=== PATIENT | male | born 1950 | race Caucasian/White ===

== ENCOUNTER 2019-07-11 12:36 | Outpatient (CLI) | payer OTHER, SELFPAY ==
--- NOTE | 2019-07-11 12:41 | USCV_ITS ---
Ac Paz Age: 69 Gender: M : 1950 Exam Date: 07/11/2019 13:12 Ordering Phys: Luis Enrique Joseph MD ([email or web address]) Technologist: Mignon Cadet Exam Location: [facility] [place] Indication: HISTORY: Lower extremity pain. PROCEDURES: Bilateral duplex Venous Insufficiency study of the Deep and Superficial systems was carried out according to normal protocol with the patient in supine positon for deep system and dependent position for the superficial system. FINDINGS: There is no evidence of bilateral deep vein thrombosis. No evidence of superficial thrombosis in the bilateral saphenous system. No evidence of reflux was noted in the bilateral deep venous system. No venous reflux noted in the RIGHT greater saphenous vein. Venous reflux is demonstrated in the LEFT greater saphenous vein with a spectral Doppler display of greater than 500 milliseconds at the level of the below knee. Bilateral SSV appear to have thrombus ? chronic, unable to accurately evaluate for reflux. CONCLUSIONS #1. No evidence of DVT in the above-mentioned identifiable veins. #2. No significant reflux in the deep veins #3. Significant venous reflux of greater than 500 ms was noted in the below-knee greater saphenous vein on the left side #4. The venous dimensions, depth from the surface and reflux time are as mentioned above Dr Yasmani Jorge MD FACC (Electronically Signed) Final Date: 11 July 2019 19:38 S
== END 2019-07-11 12:37 | disposition home or self-care (01) ==
PROVIDERS: Family Provider Nurse Practitioner; Visit Provider Internal Medicine Cardiovascular Disease
DX: I83.93 Asymptomatic varicose veins of bilateral lower extremities (principal); I73.9 Peripheral vascular disease, unspecified; M79.662 Pain in left lower leg; M79.661 Pain in right lower leg
CPT/HCPCS: 93970

== ENCOUNTER 2020-03-01 10:31 | Emergency (ER) | payer OTHER, SELFPAY ==
--- NOTE | 2020-03-01 10:36 | XR_ITS ---
WS: [id number] Portable AP upright chest, 03/01/2020 Clinical Data: swelling Comparison: None. Findings: No nodules, masses or effusions are seen. The heart is enlarged. The pulmonary vascularity is not increased. No pneumonia or pneumothorax is seen. The aortic arch and descending aorta are tort uous. The right diaphragm is elevated. Monitor leads on the chest wall. The aortic arch and descendin g aorta show tortuosity. XR/XR chest 1V portable [id number] Impression: 1 cardiomegaly and atherosclerosis. 2. Elevation of the right diaphragm.
[2020-03-01 10:47] VITALS: BP 191/105; PULSE 64; RESP 20; TEMP 36.8; O2SAT 84; BMI 36.3
[2020-03-01 11:02] VITALS: BP 191/105; PULSE 73; RESP 20; O2SAT 94
--- NOTE | 2020-03-01 11:04 | PC.NURSE ---
REPORT RECIEVED FROM [facility].
--- NOTE | 2020-03-01 11:08 | PC.NURSE ---
Report given to LILIAM Rose
[2020-03-01 11:10] LABS: Basophils % 0.4 %; Eosinophils # 0.2 10^3/uL (0.0-0.8); Eosinophils % 3.2 %; Hematocrit 48.1 % (42.0-52.0); Lymphocytes # 1.5 10^3/uL (0.8-4.8); Lymphocytes % 20.9 %; Mean Corpuscular HGB Conc 31.2 g/dL (30.0-36.0); Mean Corpuscular Hemoglobin 30.2 pg (28.0-34.0); Mean Platelet Volume 10.2 fL (7.4-10.4); Monocytes # 0.7 10^3/uL (0.2-0.9); Monocytes % 9.4 %; Neutrophils # 4.74 10^3/uL (1.8-7.7); Neutrophils % 65.7 %; Nucleated Red Blood Cells % 0 %; Platelet Count 185 10^3/cmm (130-400); Red Blood Count 4.96 10^6/uL (4.1-5.3); Red Cell Distribution Width 12.8 % (12.1-15.1); White Blood Count 7.2 10^3/uL (4.0-10.0)
--- NOTE | 2020-03-01 11:13 | W.ED.EXTPRO ---
Documented by User: JERMAN Valencia 03/01/20 11:30 HPI - Extremity Problem General: Chief complaint: Extremity Problem,Nontraumatic Stated complaint: SWELLING IN FEET AND LEGS Time Seen by Provider: 03/01/20 10:47 Source: patient Mode of arrival: ambulatory Limitations: no limitations History of Present Illness: HPI Narrative: Patient is a 69-year-old male who presents to ED today with a complaint of bilateral lower extremity swelling that he has noticed over the past few days. Patient tells me he normally does not have a history of lower extremity swelling however tells me he is on Lasix and HCTZ. He denies a history of CHF. Patient states over the past 2 months he has been wearing 2L O2 continuously. Patient states he was placed on oxygen following a bout of pneumonia and states he has been on it since. He does not complain of orthopnea or PND. He is not having any chest pain or difficulty breathing. He is having some redness to both of his feet that he states is chronic. [facility] He has a history of PVD. MD Complaint: extremity swelling Onset (ago): day(s) Location: left, right and lower extremity Relieving factors: nothing Exacerbating factors: nothing Associated symptoms: Deny chest pain, fever(s) or rash Review of Systems Const: Denies: fever(s), chills, body aches, fatigue or malaise Eyes: Denies: change in vision or blurry vision Card: Reports: swelling of feet/ankles; Denies: chest pain, palpitations, irregular heart rhythm, edema, lightheadedness, syncope, pre-syncope, dyspnea on exertion, orthopnea, leg pain with exertion or acrocyanosis Resp: Denies: dyspnea, productive cough, non-productive cough, pain on inspiration, change in phlegm color, hemoptysis or chest congestion GI: Denies: abdominal pain, nausea, vomiting, heartburn or diarrhea : Denies: difficulty urinating or dysuria Musc: Reports: extremity swelling; Denies: neck pain, back pain, extremity pain, joint pain, joint swelling, joint redness or joint warmth Skin/Breast: Denies: rash Neuro: Denies: headache(s), numbness in extremities, weakness in extremities or sensory changes PFS ED PFSH: Family History (Updated 11/01/19 @ 09:23 by Chasity Winslow LPN) Mother Cancer Breast CA Father CAD (coronary artery disease) Myocardial infarct MD age 58 Diabetes Stroke Hypertension Social History (Updated 11/01/19 @ 09:24 by Chasity Winslow LPN) Smoking and tobacco status: former smoker Physical Exam Const: COMMON NORMALS: no acute distress, patient oriented x3, no limitations and alert NUTRITIONAL APPEARANCE: obese HENMT: COMMON NORMALS: normocephalic and atraumatic HEAD & SCALP: normocephalic and atraumatic Resp: COMMON NORMALS: normal respiratory effort and clear to auscultation bilaterally AUSCULTATION: clear to auscultation bilaterally Cardio: COMMON NORMALS: regular rate and regular rhythm RATE: regular rate RHYTHM: regular rhythm GI: COMMON NORMALS: Normal to inspection, nondistended, normoactive bowel sounds present, Soft to palpation and non-tender PALPATION: Yes Soft to palpation Extremity: GENERAL: Yes normal exam except as noted OTHER: bilateral LE 2+ pitting edema Neuro: COMMON NORMALS: patient oriented x3 SENSORIUM/ORIENTATION: Yes alert Skin: OTHER: erythema to dorsums of bilateral LEs Course Vital Signs: Vital signs: Vital Signs Temperature 98.3 F 03/01/20 10:47 Pulse Rate 70 03/01/20 12:57 Respiratory Rate 20 H 03/01/20 12:57 Blood Pressure 178/109 03/01/20 12:57 Pulse Oximetry 95 03/01/20 12:57 MDM - Extremity (Nontraumatic) Lab Data: Labs: Lab Results 03/01/20 03/01/20 03/01/20 Range/Units 10:55 10:55 10:55 WBC 7.2 (4.0-10.0) 10^3/ uL RBC 4.96 (4.1-5.3) 10^6/u L Hgb 15.0 (11.7-16.6) g/dL Hct 48.1 (42.0-52.0) % MCV 97.0 H (80-94) fL MCH 30.2 (28.0-34.0) pg MCHC 31.2 (30.0-36.0) g/dL RDW 12.8 (12.1-15.1) % Plt Count 185 (130-400) 10^3/c mm MPV 10.2 (7.4-10.4) fL Neut % (Auto) 65.7 % Lymph % (Auto) 20.9 % [place] % (Auto) 9.4 % Eos % (Auto) 3.2 % Baso % (Auto) 0.4 % Neut # (Auto) 4.74 (1.8-7.7) 10^3/u L Lymph # (Auto) 1.5 (0.8-4.8) 10^3/u L [place] # (Auto) 0.7 (0.2-0.9) 10^3/u L Eos # (Auto) 0.2 (0.0-0.8) 10^3/u L Baso # (Auto) 0.0 (0.0-0.1) 10^3/u L Nucleated RBC % (a uto) 0 % Nucleated RBCs # 0.0 /100WBC D-Dimer (0-0.59) ug/mIFE U Sodium 139 (136-145) mmol/L Potassium 4.2 (3.5-5.1) mmol/L Chloride 96 L (98-107) mmol/L Carbon Dioxide 37 H (22-29) mmol/L Anion Gap 10.2 (5-19) BUN 12 (8-23) mg/dL Creatinine 1.1 (0.7-1.2) mg/dL GFR Calculation 66.2 L (90-130) mL/min Glucose 115 (65-115) mg/dL Calculated Osmolal ity 285 (285-295) mOsm/k g Lactic Acid 1.1 (0.5-2.2) mmol/L Calcium 9.6 (8.5-10.5) mg/dL Total Bilirubin 0.6 (0.15-1.2) mg/dL AST 29 (0-40) U/L ALT 62 H (0-41) U/L Alkaline Phosphata se 94 (40-130) IU/L NT-Pro-B Natriuret Pep 368 H (0-125) pg/mL Total Protein 7.6 (6.6-8.7) g/dL Albumin 4.6 (3.5-5.2) g/dL Globulin 3.0 (1.3-4.6) g/dL 03/01/20 Range/Units 10:55 WBC (4.0-10.0) 10^3/ uL RBC (4.1-5.3) 10^6/u L Hgb (11.7-16.6) g/dL Hct (42.0-52.0) % MCV (80-94) fL MCH (28.0-34.0) pg MCHC (30.0-36.0) g/dL RDW (12.1-15.1) % Plt Count (130-400) 10^3/c mm MPV (7.4-10.4) fL Neut % (Auto) % Lymph % (Auto) % [place] % (Auto) % Eos % (Auto) % Baso % (Auto) % Neut # (Auto) (1.8-7.7) 10^3/u L Lymph # (Auto) (0.8-4.8) 10^3/u L [place] # (Auto) (0.2-0.9) 10^3/u L Eos # (Auto) (0.0-0.8) 10^3/u L Baso # (Auto) (0.0-0.1) 10^3/u L Nucleated RBC % (a uto) % Nucleated RBCs # /100WBC D-Dimer 1.05 H (0-0.59) ug/mIFE U Sodium (136-145) mmol/L Potassium (3.5-5.1) mmol/L Chloride (98-107) mmol/L Carbon Dioxide (22-29) mmol/L Anion Gap (5-19) BUN (8-23) mg/dL Creatinine (0.7-1.2) mg/dL GFR Calculation (90-130) mL/min Glucose (65-115) mg/dL Calculated Osmolal ity (285-295) mOsm/k g Lactic Acid (0.5-2.2) mmol/L Calcium (8.5-10.5) mg/dL Total Bilirubin (0.15-1.2) mg/dL AST (0-40) U/L ALT (0-41) U/L Alkaline Phosphata se (40-130) IU/L NT-Pro-B Natriuret Pep (0-125) pg/mL Total Protein (6.6-8.7) g/dL Albumin (3.5-5.2) g/dL Globulin (1.3-4.6) g/dL Imaging Data^: CXR: Radiologist's impression: [address] [place] [address] XRay Report Signed Patient: Ac Paz Unit #: [id number] : 1950 Age/Sex: 69 / M ADM Date: 03/01/20 Loc: ER Room/Bed: Attending Dr: Ordering Provider/Ordering MD: Kaylene Peters Date of Service: 03/01/20 Procedure(s): XR chest 1V portable [id number] Accession Number(s): [id number] Report Number: [id number] WS: [id number] Portable AP upright chest, 03/01/2020 Clinical Data: swelling Comparison: None. Findings: No nodules, masses or effusions are seen. The heart is enlarged. The pulmonary vascularity is not increased. No pneumonia or pneumothorax is seen. The aortic arch and descending aorta are tortuous. The right diaphragm is elevated. Monitor leads on the chest wall. The aortic arch and descending aorta show tortuosity. XR/XR chest 1V portable [id number] Impression: 1 cardiomegaly and atherosclerosis. 2. Elevation of the right diaphragm. Dictated By: Katherine Monteiro MD Signed By: Katherine Monteiro MD Signed Date/Time: 03/01/20 1111 DD/ 1110 Discharge Plan Discharge Patient Disposition: Home Clinical Impression: Pedal edema Condition: Stable Prescriptions: New (DME) compr.stocking,knee,long,x-lrg Misc See Rx Instructions .ROUTE .MEDSUPPLY Qty: 2 RF: 0 Continued metoprolol tartrate 100 mg tablet 50 mg PO BID RF: 0 furosemide 40 mg tablet 40 mg PO DAILY RF: 0 dorzolamide-timolol 22.3-6.8 mg/mL drops 1 drop ophthalmic (eye) BID RF: 0 triamcinolone acetonide 0.1 % Cream 1 applic TOPICAL BID RF: 0 prednisolone acetate 1 % Drops,Suspension 1 drp OPHTHALMIC (EYE) DAILY RF: 0 hydrochlorothiazide 25 mg Tablet 25 mg PO BEDTIME RF: 0 ketoconazole 1 % Shampoo 1 applic TOPICAL EVERY OTHER DAY RF: 0 valsartan 160 mg Tablet 160 mg PO BID RF: 0 Discharge Orders: Discharge Order (Routine); Ordered 03/01/20 Ordered By: Ernesto Zurita Referrals: Acacia Welch HARPSICHORD MAKER [Family Provider] - 4-7 days Discharge Diet: Low Salt Discharge Activity: Increase activity as tolerated Patient Instructions: Leg Edema (ED) Activity Restrictions/Additional Instructions: Return for any new or worsening symptoms. Follow-up with your primary care provider within 1 week. Follow-up with the certified veterinary technician and vascular surgeon as soon as he can. Obtain compression stockings as that will help as a temporary measure while you are waiting on surgery. Sign Out Sign Out Data: Patient Sign Out occurred on 03/01/20 at 11:38. Patient's care was discussed, and care was transferred from to Ernesto Zurita MD, [facility] [place] Coding Level of Care Code ED Discovery Manager for Chg Fwd Exam Detailed Documented by User: Ernesto Zurita MD, [facility] [place] 03/01/20 13:56 HPI - Extremity Problem General: Chief complaint: Extremity Problem,Nontraumatic Stated complaint: SWELLING IN FEET AND LEGS Time Seen by Provider: 03/01/20 10:47 PFS ED PFSH: Family History (Updated 11/01/19 @ 09:23 by Chasity Winslow LPN) Mother Cancer Breast CA Father CAD (coronary artery disease) Myocardial infarct MD age 58 Diabetes Stroke Hypertension Social History (Updated 11/01/19 @ 09:24 by Chasity Winslow LPN) Smoking and tobacco status: former smoker Course ED course: To provide care from the midlevel. Essentially he is a 69-year-old male who came in with progressive leg swelling. He was hypoxic on arrival, however he has been on 2 L of oxygen recently and came in without his oxygen. He is on Lasix and hydrochlorothiazide but he says is not working. He has no prior history of CHF or COPD. Waiting on his lab work including his d-dimer. If d-dimer is elevated he will obtain a chest CTA. Reevaluation(s): Reevaluation #1: Discussed his lab and imaging findings with him. Especially negative for acute findings. D-dimer mildly elevated but a CTA of his lungs was negative for PE or other acute findings. proBNP is mildly elevated. On further discussion he says his left leg has been swollen for many years on the right leg has been swollen for few weeks. He is on Lasix and hydrochlorothiazide but it appears it is no working. 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 He has been unable to arrange for the surgery due to scheduling issues. I advised that he then get compression socks while he is waiting for the surgery. At this time no need to order anything new other than the compression socks. He voiced understanding and is in agreement with the plan. He thinks he will go to [place] [facility] the [place] to try to get the surgery done faster. Time: 13:42 Vital Signs: Vital signs: Vital Signs Temperature 98.3 F 03/01/20 10:47 Pulse Rate 70 03/01/20 12:57 Respiratory Rate 20 H 03/01/20 12:57 Blood Pressure 178/109 03/01/20 12:57 Pulse Oximetry 95 03/01/20 12:57 MDM - Extremity (Nontraumatic) MDM Narrative: Medical decision making narrative: 69-year-old male who presents to the emergency room with progressive leg swelling. Evaluation in the emergency department was unremarkable for acute illness. 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 He has had swelling in his left leg for years and swelling in the right leg for weeks to months. He is on Lasix. He is advised to increase the dose of his Lasix for a few days to see if that helps. He is also to obtain compression stockings to help reduce the swelling while he is awaiting surgery. Medical Records: Attestation: I reviewed the patient's medical records. Lab Data: Attestation: I reviewed the patient's lab results. Labs: Lab Results 03/01/20 03/01/20 03/01/20 Range/Units 10:55 10:55 10:55 WBC 7.2 (4.0-10.0) 10^3/ uL RBC 4.96 (4.1-5.3) 10^6/u L Hgb 15.0 (11.7-16.6) g/dL Hct 48.1 (42.0-52.0) % MCV 97.0 H (80-94) fL MCH 30.2 (28.0-34.0) pg MCHC 31.2 (30.0-36.0) g/dL RDW 12.8 (12.1-15.1) % Plt Count 185 (130-400) 10^3/c mm MPV 10.2 (7.4-10.4) fL Neut % (Auto) 65.7 % Lymph % (Auto) 20.9 % [place] % (Auto) 9.4 % Eos % (Auto) 3.2 % Baso % (Auto) 0.4 % Neut # (Auto) 4.74 (1.8-7.7) 10^3/u L Lymph # (Auto) 1.5 (0.8-4.8) 10^3/u L [place] # (Auto) 0.7 (0.2-0.9) 10^3/u L Eos # (Auto) 0.2 (0.0-0.8) 10^3/u L Baso # (Auto) 0.0 (0.0-0.1) 10^3/u L Nucleated RBC % (a uto) 0 % Nucleated RBCs # 0.0 /100WBC D-Dimer (0-0.59) ug/mIFE U Sodium 139 (136-145) mmol/L Potassium 4.2 (3.5-5.1) mmol/L Chloride 96 L (98-107) mmol/L Carbon Dioxide 37 H (22-29) mmol/L Anion Gap 10.2 (5-19) BUN 12 (8-23) mg/dL Creatinine 1.1 (0.7-1.2) mg/dL GFR Calculation 66.2 L (90-130) mL/min Glucose 115 (65-115) mg/dL Calculated Osmolal ity 285 (285-295) mOsm/k g Lactic Acid 1.1 (0.5-2.2) mmol/L Calcium 9.6 (8.5-10.5) mg/dL Total Bilirubin 0.6 (0.15-1.2) mg/dL AST 29 (0-40) U/L ALT 62 H (0-41) U/L Alkaline Phosphata se 94 (40-130) IU/L NT-Pro-B Natriuret Pep 368 H (0-125) pg/mL Total Protein 7.6 (6.6-8.7) g/dL Albumin 4.6 (3.5-5.2) g/dL Globulin 3.0 (1.3-4.6) g/dL 03/01/20 Range/Units 10:55 WBC (4.0-10.0) 10^3/ uL RBC (4.1-5.3) 10^6/u L Hgb (11.7-16.6) g/dL Hct (42.0-52.0) % MCV (80-94) fL MCH (28.0-34.0) pg MCHC (30.0-36.0) g/dL RDW (12.1-15.1) % Plt Count (130-400) 10^3/c mm MPV (7.4-10.4) fL Neut % (Auto) % Lymph % (Auto) % [place] % (Auto) % Eos % (Auto) % Baso % (Auto) % Neut # (Auto) (1.8-7.7) 10^3/u L Lymph # (Auto) (0.8-4.8) 10^3/u L [place] # (Auto) (0.2-0.9) 10^3/u L Eos # (Auto) (0.0-0.8) 10^3/u L Baso # (Auto) (0.0-0.1) 10^3/u L Nucleated RBC % (a uto) % Nucleated RBCs # /100WBC D-Dimer 1.05 H (0-0.59) ug/mIFE U Sodium (136-145) mmol/L Potassium (3.5-5.1) mmol/L Chloride (98-107) mmol/L Carbon Dioxide (22-29) mmol/L Anion Gap (5-19) BUN (8-23) mg/dL Creatinine (0.7-1.2) mg/dL GFR Calculation (90-130) mL/min Glucose (65-115) mg/dL Calculated Osmolal ity (285-295) mOsm/k g Lactic Acid (0.5-2.2) mmol/L Calcium (8.5-10.5) mg/dL Total Bilirubin (0.15-1.2) mg/dL AST (0-40) U/L ALT (0-41) U/L Alkaline Phosphata se (40-130) IU/L NT-Pro-B Natriuret Pep (0-125) pg/mL Total Protein (6.6-8.7) g/dL Albumin (3.5-5.2) g/dL Globulin (1.3-4.6) g/dL Imaging Data^: CTA Chest: Radiologist's impression: [place] [address] CT Scan Report Signed Patient: Hattie Paz #: [id number] : [id number] Age/Sex: 69 / MADM Date: 03/01/20 Loc: ERRoom/Bed: Attending Dr: Ordering Provider/Ordering MD: Ernesto Zurita MD, [facility] [place] Date of Service: 03/01/20 Procedure(s): CT angio chest PE protcl [id number] Accession Number(s): [id number] Report Number: [id number] WS: [id number] CT CHEST ANGIOGRAPHY WITH REFORMATS HISTORY: SOB, hypoxia TECHNIQUE: Contiguous axial images are obtained through the chest during arterial injection of intravenous contrast. Images are reconstructed to evaluate the pulmonary arteries. MIP imaging also reviewed. All CT scans at [facility] use at least one of these dose optimization techniques: automated exposure control; mA and/or kV adjustment per patient size (includes targeted exams where dose is matched to clinical indication); or iterative reconstruction. CONTRAST: Omnipaque 350; 95 mL IV. DLP: 623.66 mGy.cm COMPARISON: 10/12/2018 Good opacification of the pulmonary arteries. No filling defects or pulmonary embolism. Mild atherosclerosis aorta. Heart size is normal. No pericardial or pleural effusion. Mild elevation of the RIGHT hemidiaphragm with RIGHT basilar atelectasis. Benign granuloma RIGHT lower lobe. No pneumonia or nodule. No mediastinal or hilar adenopathy. Hepatic steatosis and hepatomegaly. Prior cholecystectomy. Mild increase in the thoracic kyphosis. Degenerative spondylitic changes in the thoracic spine. CT/CT angio chest PE protcl [id number] IMPRESSION: 1. No pulmonary embolism. 2. Mild elevation RIGHT hemidiaphragm with subsegmental RIGHT lower lobe atelectasis. 3. Mild atherosclerosis aorta. 4. Hepatomegaly and hepatic steatosis. Dictated By:Oralia Bocanegra DO Signed By:Oralia Bocanegra DOSigned Date/Time:03/01/20 1303 DD/ 1257 Discharge Plan Discharge Patient Disposition: Home Clinical Impression: Pedal edema Condition: Stable Prescriptions: New (DME) compr.stocking,knee,long,x-lrg Misc See Rx Instructions .ROUTE .MEDSUPPLY Qty: 2 RF: 0 Continued metoprolol tartrate 100 mg tablet 50 mg PO BID RF: 0 furosemide 40 mg tablet 40 mg PO DAILY RF: 0 dorzolamide-timolol 22.3-6.8 mg/mL drops 1 drop ophthalmic (eye) BID RF: 0 triamcinolone acetonide 0.1 % Cream 1 applic TOPICAL BID RF: 0 prednisolone acetate 1 % Drops,Suspension 1 drp OPHTHALMIC (EYE) DAILY RF: 0 hydrochlorothiazide 25 mg Tablet 25 mg PO BEDTIME RF: 0 ketoconazole 1 % Shampoo 1 applic TOPICAL EVERY OTHER DAY RF: 0 valsartan 160 mg Tablet 160 mg PO BID RF: 0 Discharge Orders: Discharge Order (Routine); Ordered 03/01/20 Ordered By: Ernesto Zurita Referrals: Acacia Welch FNP [Family Provider] - 4-7 days Discharge Diet: Low Salt Discharge Activity: Increase activity as tolerated Patient Instructions: Leg Edema (ED) Activity Restrictions/Additional Instructions: Return for any new or worsening symptoms. Follow-up with your primary care provider within 1 week. Follow-up with the certified veterinary technician and vascular surgeon as soon as he can. Obtain compression stockings as that will help as a temporary measure while you are waiting on surgery. Sign Out Sign Out Data: Patient Sign Out occurred on 03/01/20 at 11:38. Patient's care was discussed, and care was transferred from to Ernesto Zurita MD, [facility]. Coding Level of Care Code ED Discovery Manager for Chg Fwd Exam Detailed
[2020-03-01 11:29] LABS: Lactic Sepsis W/Reflex 1.1 mmol/L (0.5-2.2)
[2020-03-01 11:34] LABS: D Dimer 1.05 ug/mIFEU (0-0.59)
[2020-03-01 11:39] LABS: Alanine Aminotransferase 62 U/L (0-41); Albumin Level 4.6 g/dL (3.5-5.2); Alkaline Phosphatase 94 IU/L (40-130); Anion Gap 10.2 (5-19); Aspartate Amino Transferase 29 U/L (0-40); Blood Urea Nitrogen 12 mg/dL (8-23); Calcium 9.6 mg/dL (8.5-10.5); Carbon Dioxide 37 mmol/L (22-29); Chloride 96 mmol/L (98-107); Glomerular Filtration Rate 66.2 mL/min (90-130); Glucose 115 mg/dL (65-115); NT Pro B Type Natriuretic Pept 368 pg/mL (0-125); Osmolality Calculated 285 mOsm/kg (285-295); Potassium 4.2 mmol/L (3.5-5.1); Sodium 139 mmol/L (136-145); Total Bilirubin 0.6 mg/dL (0.15-1.2); Total Protein 7.6 g/dL (6.6-8.7)
--- NOTE | 2020-03-01 11:43 | CT_ITS ---
WS: [id number] CT CHEST ANGIOGRAPHY WITH REFORMATS HISTORY: SOB, hypoxia TECHNIQUE: Contiguous axial images are obtained through the chest during arterial injection of intrav enous contrast. Images are reconstructed to evaluate the pulmonary arteries. MIP imaging also reviewe d. All CT scans at [facility] use at least one of these dose optimization techniques: aut omated exposure control; mA and/or kV adjustment per patient size (includes targeted exams where dose is matched to clinical indication); or iterative reconstruction. CONTRAST: Omnipaque 350; 95 mL IV. DLP: 623.66 mGy.cm COMPARISON: 10/12/2018 Good opacification of the pulmonary arteries. No filling defects or pulmonary embolism. Mild atherosc lerosis aorta. Heart size is normal. No pericardial or pleural effusion. Mild elevation of the RIGHT hemidiaphragm with RIGHT basilar atelectasis. Benign granuloma RIGHT lower lobe. No pneumonia or nodu le. No mediastinal or hilar adenopathy. Hepatic steatosis and hepatomegaly. Prior cholecystectomy. Mild increase in the thoracic kyphosis. Degenerative spondylitic changes in the thoracic spine. CT/CT angio chest PE protcl [id number] IMPRESSION: 1. No pulmonary embolism. 2. Mild elevation RIGHT hemidiaphragm with subsegmental RIGHT lower lobe atele ctasis. 3. Mild atherosclerosis aorta. 4. Hepatomegaly and hepatic steatosis.
[2020-03-01] MEDS: iohexol 350 mg/mL 100 mL Btl IV (12:25)
[2020-03-01 12:57] VITALS: BP 178/109; PULSE 70; RESP 20; O2SAT 95
[2020-03-01 14:05] VITALS: BP 178/98; PULSE 71; RESP 16; O2SAT 95
== END 2020-03-01 14:17 | disposition home or self-care (01) ==
PROVIDERS: Physician Assistant; Emergency Provider Family Medicine; Family Provider Nurse Practitioner
DX: R60.0 Localized edema (principal); Z87.891 Personal history of nicotine dependence; I70.0 Atherosclerosis of aorta
CPT/HCPCS: 12345; 71045; 71275; 80053; 83605; 83880; 85025; 85378; 99283; Q9967

== ENCOUNTER 2021-02-11 09:40 | Outpatient (CLI) | payer OTHER, SELFPAY ==
--- NOTE | 2021-02-11 10:47 | USCV_ITS ---
Ac Paz Age: 70 Gender: M : 1950 Exam Date: 02/11/2021 10:50 Ordering Phys: Boom Kowalski Technologist: Dolly Moran Exam Location: [facility] [place] Indication: CHF BP: 130 / 88 HR: 88 Rhythm: Sinus Technical Quality: Technically difficult study MEASUREMENTS (Male / Female) Normal Values 2D ECHO LV Diastolic Diameter PLAX 4.0 cm 4.2 - 5.9 / 3.9 - 5.3 cm LV Systolic Diameter PLAX 2.2 cm LV Chamber Size 2.7 cm IVS Diastolic Thickness 1.4 cm 0.6 - 1.0 / 0.6 - 0.9 cm IVS Systolic Thickness 1.3 cm LVPW Diastolic Thickness 1.5 cm 0.6 - 1.0 / 0.6 - 0.9 cm LVPW Systolic Thickness 3.1 cm RV Chamber Size 2.2 cm LVOT Diameter 2.1 cm LV Ejection Fraction 2D Teich 64.9 % LV Ejection Fraction MOD 2C 64.1 % LV Ejection Fraction 2C AL 63.8 % LA Diameter 4.0 cm LA Width 3.9 cm LA Height 5.0 cm RA Width 2.3 cm RA Height 4.1 cm Aorta at Sinotubular Diameter 3.4 cm M-MODE LV Diastolic Diameter MM 3.3 cm 4.2 - 5.9 / 3.9 - 5.3 cm LV Systolic Diameter MM 2.0 cm LV Ejection Fraction MM Teich 71.1 % IVS Diastolic Thickness MM 1.9 cm 0.6 - 1.0 / 0.6 - 0.9 cm IVS Systolic Thickness MM 2.2 cm LVPW Diastolic Thickness MM 1.8 cm 0.6 - 1.0 / 0.6 - 0.9 cm LVPW Systolic Thickness MM 2.2 cm Aortic Annulus Diameter 4.0 cm LA Ao Ratio MM 1.2 MV E Point Septal Separation 1.1 cm DOPPLER AV Peak Velocity 143.0 cm/s LVOT Peak Velocity 149.0 cm/s AV Area Cont Eq vti 3.1 cm squared AV Area Cont Eq pk 3.5 cm squared MV Area PHT 10.0 cm squared Mitral E to A Ratio 0.9 MV E' Velocity 40.0 cm/s Mitral E to MV E' Ratio 10.6 Mitral E to LV E' Lateral Ratio 14.0 Mitral E to LV E' Septal Ratio 8.7 TR Peak Velocity 137.4 cm/s TR Peak Gradient 7.6 mmHg TR Mean Velocity 110.8 cm/s TR Mean Gradient 5.2 mmHg TR Velocity Time Integral 36.4 cm TV Peak E Velocity 70.0 cm/s Right Atrial Pressure 3.0 mmHg Pulmonary Artery Systolic Pressu 10.6 mmHg PV Peak Velocity 78.7 cm/s RV Acceleration Time 0.2 s RV Ejection Time 0.4 s RV AcT/ET 0.5 FINDINGS Left Ventricle Normal left ventricular cavity size. Normal left ventricular systolic function. No regional wall motion abnormalities. Left ventricular ejection fraction is estimated at 65 %. Grade I/IV diastolic dysfunction (abnormal relaxation filling pattern), normal to mildly elevated filling pressures. Right Ventricle The right ventricle is normal in size and function. Right Atrium The right atrium is normal in size. Left Atrium The left atrium is normal in size. Mitral Valve Structurally normal mitral valve without significant stenosis or prolapse. There is no mitral regurgitation. Aortic Valve Moderate aortic valve calcification. No aortic valve stenosis. Trace aortic valve regurgitation. Tricuspid Valve Structurally normal tricuspid valve without significant stenosis or regurgitation. Pulmonary artery systolic pressure is normal. Pulmonic Valve Structurally normal pulmonic valve without significant stenosis. There is no pulmonic regurgitation. Pericardium Normal pericardium without effusion. Aorta Normal ascending aorta dimension. CONCLUSIONS 1-Normal left ventricular cavity size. Normal left ventricular systolic function. No regional wall motion abnormalities. Left ventricular ejection fraction is estimated at 65 %. Grade I/IV diastolic dysfunction (abnormal relaxation filling pattern), normal to mildly elevated filling pressures. 2-There is no pericardial effusion. 3-Pulmonary artery systolic pressure is within normal limits. 4-No significant valve abnormalities. 5-Right atrial pressure is around 5 mm of mercury. 6-There are no prior echocardiogram studies to compare. Lius Enrique Joseph MD (Electronically Signed) Final Date: 11 February 2021 17:31 S
== END 2021-02-11 09:41 | disposition home or self-care (01) ==
LOC: US 09:44
PROVIDERS: PCP Nurse Practitioner; Visit Provider Surgery
DX: M79.89 Other specified soft tissue disorders (principal); R60.1 Generalized edema; I50.9 Heart failure, unspecified
CPT/HCPCS: 93306

== ENCOUNTER 2021-02-15 06:15 | Emergency (ER) | payer OTHER, SELFPAY ==
[2021-02-15 06:36] VITALS: BP 150/85; PULSE 88; RESP 18; TEMP 36.7; O2SAT 92; BMI 38.0
[2021-02-15 06:54] VITALS: BP 158/91; PULSE 94; RESP 16; O2SAT 94
--- NOTE | 2021-02-15 07:05 | XRR_ITS ---
PROCEDURE INFORMATION: Exam: XR Chest Exam date and time: 02/15/2021 7:05 AM Age: 70 years old Clinical indication: Cough; Additional info: Cough, aches/chills TECHNIQUE: Imaging protocol: XR of the chest. Views: 1 view. COMPARISON: CR XR chest 1V portable [id number] 03/01/2020 11:21 AM FINDINGS: Lungs: Low lung volumes. Elevation of the right hemidiaphragm with adjacent atelectasis is again seen. Pneumonia should be excluded clinically. Pleural spaces: Unremarkable. No pleural effusion. No pneumothorax. Heart/Mediastinum: Stable cardiomediastinal silhouette. Bones/joints: Degenerative changes of the spine seen. XR/XR chest 1V portable [id number] IMPRESSION: Right basilar atelectasis versus pneumonia, clinical correlation is recommended.
--- NOTE | 2021-02-15 07:06 | ED_ITS ---
HPI - COVID General: Chief Complaint: General Medical Stated Complaint: COUGH, CHILLS Time Seen by Provider: 02/15/21 06:41 Source: patient Mode of arrival: ambulatory Limitations: no limitations Triage information: Has fever, cough or shortness of breath . No known COVID + exposure last 14 days History of Present Illness: HPI Narrative: Patient is a 70-year-old male who presents to ED today with a complaint of chills and body aches as well as a nonproductive cough. He states he normally has a mild cough secondary to COPD but states this cough is different and nonproductive. He states he woke up this morning with body and joint pain. He has had chills and subjective fevers. He is unvaccinated for COVID. Patient denies other URI symptoms. No loss of taste or smell. Denies abdominal pain, nausea, vomiting, diarrhea. No known sick contacts. PMH significant for COPD and HTN. Patient chronically wears 2-2.5L O2 for his COPD. He has not had to increase this. He does not report feeling short of breath currently. MD complaint: has COVID symptoms Prior covid testing: no COVID 19 common symptoms: positive fever(s) (subjective ), chills, cough, non- productive cough, dyspnea (chronic-not worsening ) and body aches; negative headache(s), throat pain, nasal congestion, nausea, vomiting or diarrhea COVID 19 other sytmptoms: negative chest pain Onset (ago): day(s) (yesterday) Severity: mild Pertinent comorbid conditions: hypertension and COPD/respiratory disease Treatment prior to arrival: none COVID Results: SARS-CoV-2 Antigen (Rapid) Positive (Negative) H 02/15/21 07:33 02/15/21 Review of Systems Const: Reports: fever(s) (subjective ), chills and body aches; Denies: change in appetite or change in weight Eyes: Denies: change in vision, blurry vision or photophobia ENMT: Denies: throat pain, odynophagia, nasal discharge, nasal congestion, post nasal drip or sinus pain Card: Reports: swelling of feet/ankles (chronic) and dyspnea on exertion (chronic-not worsening ); Denies: chest pain, palpitations, irregular heart rhythm, edema, lightheadedness, syncope or pre-syncope Resp: Reports: dyspnea (chronic-not worsening ) and non-productive cough; Denies: pain on inspiration or hemoptysis GI: Denies: abdominal pain, nausea, vomiting or diarrhea Musc: Denies: neck pain or back pain Skin/Breast: Denies: rash Neuro: Denies: headache(s), numbness in extremities, weakness in extremities, sensory changes or dizziness PFSH ED PFSH: Medical History Borderline personality disorder CHF (congestive heart failure) Peripheral Vascular Disease Varicose veins of bilateral lower extremities with other complications Surgical History History of back surgery S/P carpal tunnel release S/P cholecystectomy S/P foot surgery S/P routine circumcision Family History Mother Cancer Breast CA Father CAD (coronary artery disease) Myocardial infarct [place] age 58 Diabetes Stroke Hypertension Social History Smoking and tobacco status: former smoker Physical Exam Const: COMMON NORMALS: no acute distress, patient oriented x3, no limitations and alert NUTRITIONAL APPEARANCE: obese ORIENTATION/CONSCIOUSNESS: Yes awake, Yes oriented to person, Yes oriented to place and Yes oriented to time HENMT: COMMON NORMALS: normocephalic, atraumatic, Normal external nose present, moist oral mucous membranes and oropharynx normal HEAD & SCALP: nor mal to inspection, normocephalic and atraumatic FACE & SINUS: normal facial exam NOSE: Normal external nose present MOUTH: Normal oral and palatal mucosa present TEETH & GINGIVA: Yes poor dentition THROAT: posterior oropharynx normal Eye: GENERAL EYE: appearance normal, both eyes and all related structures Neck/C-Spine: COMMON NORMALS: no lymphadenopathy and no meningeal signs Resp: COMMON NORMALS: normal respiratory effort and clear to auscultation bilaterally AUSCULTATION: clear to auscultation bilaterally Cardio: COMMON NORMALS: regular rate and regular rhythm RATE: regular rate RHYTHM: regular rhythm GI: COMMON NORMALS: Normal to inspection, nondistended, normoactive bowel soun ds present, Soft to palpation, non-tender and no masses PALPATION: Yes Soft to palpation Extremity: COMMON NORMALS: capillary refill normal and no calf tenderness GENERAL: Yes normal exam except as noted and Yes edema (chronic) Neuro: COMMON NORMALS: patient oriented x3 SENSORIUM/ORIENTATION: Yes alert, Yes oriented to person, Yes oriented to place and Yes oriented to time MENINGEAL SIGNS: Yes no meningeal signs Skin: COMMON NORMALS: no rashes or lesions noted GENERAL SKIN EXAM: no rashes or lesions noted Course Vital Signs: Vital signs: Vital Signs Temperature 98.1 F 02/15/21 06:36 Pulse Rate 101 H 02/15/21 07:32 Respiratory Rate 18 02/15/21 07:32 Blood Pressure 151/93 02/15/21 07:32 Pulse Oximetry 93 02/15/21 07:32 MDM - COVID MDM Narrative: Medical decision making narrative: Patient appears in NAD. Vitals are stable. He chronically wears O2 and has not had to increase this. Labs are non-concerning. Influenza negative. His rapid COVID is positive. He is a candidate for MCA infusion at this time and would likely see benefit given the fact that symptoms just started yesterday. [facility] for [facility]. Return to ED precautions given. Lab Data: Labs: Lab Results 02/15/21 02/15/21 02/15/21 Range/Units 07:33 07:33 07:33 WBC 4.9 (4.0-10.0) 10^3/ uL RBC 4.78 (4.1-5.3) 10^6/u L Hgb 14.3 (11.7-16.6) g/dL Hct 45.3 (42.0-52.0) % MCV 94.8 H (80-94) fl MCH 29.9 (28.0-34.0) pg MCHC 31.6 (30.0-36.0) g/dL RDW 13.2 (12.1-15.1) % Plt Count 151 (130-400) 10^3/c mm MPV 10.9 H (7.4-10.4) fL Neut % (Auto) 70.7 % Lymph % (Auto) 9.7 % Bosque % (Auto) 16.9 % Eos % (Auto) 2.1 % Baso % (Auto) 0.2 % Neut # (Auto) 3.44 (1.8-7.7) 10^3/u L Lymph # (Auto) 0.5 L (0.8-4.8) 10^3/u L Bosque # (Auto) 0.8 (0.2-0.9) 10^3/u L Eos # (Auto) 0.1 (0.0-0.8) 10^3/u L Baso # (Auto) 0.0 (0.0-0.1) 10^3/u L Nucleated RBC % (a uto) 0 % Nucleated RBCs # 0.0 /100WBC Sodium 140 (136-145) mmol/L Potassium 4.3 (3.5-5.1) mmol/L Chloride 98 (98-107) mmol/L Carbon Dioxide 35 H (22-29) mmol/L Anion Gap 11.3 (5-19) BUN 16 (8-23) mg/dL Creatinine 1.0 (0.7-1.2) mg/dL GFR Calculation Not Reportable Glucose 104 (65-115) mg/dL Calculated Osmolal ity 291 (285-295) mOsm/k g Calcium 9.7 (8.5-10.5) mg/dL Total Bilirubin 0.5 (0.15-1.2) mg/dL AST 22 (0-40) U/L ALT 37 (0-41) U/L Alkaline Phosphata se 98 (40-130) IU/L Total Protein 7.5 (6.6-8.7) g/dL Albumin 4.3 (3.5-5.2) g/dL Globulin 3.2 (1.3-4.6) g/dL Influenza Type A A g Negative (Negative) Influenza Type B A g Negative (Negative) SARS-CoV-2 Ag (Rap id) (Negative) 02/15/21 Range/Units 07:33 WBC (4.0-10.0) 10^3/ uL RBC (4.1-5.3) 10^6/u L Hgb (11.7-16.6) g/dL Hct (42.0-52.0) % MCV (80-94) fl MCH (28.0-34.0) pg MCHC (30.0-36.0) g/dL RDW (12.1-15.1) % Plt Count (130-400) 10^3/c mm MPV (7.4-10.4) fL Neut % (Auto) % Lymph % (Auto) % Bosque % (Auto) % Eos % (Auto) % Baso % (Auto) % Neut # (Auto) (1.8-7.7) 10^3/u L Lymph # (Auto) (0.8-4.8) 10^3/u L Bosque # (Auto) (0.2-0.9) 10^3/u L Eos # (Auto) (0.0-0.8) 10^3/u L Baso # (Auto) (0.0-0.1) 10^3/u L Nucleated RBC % (a uto) % Nucleated RBCs # /100WBC Sodium (136-145) mmol/L Potassium (3.5-5.1) mmol/L Chloride (98-107) mmol/L Carbon Dioxide (22-29) mmol/L Anion Gap (5-19) BUN (8-23) mg/dL Creatinine (0.7-1.2) mg/dL GFR Calculation Glucose (65-115) mg/dL Calculated Osmolal ity (285-295) mOsm/k g Calcium (8.5-10.5) mg/dL Total Bilirubin (0.15-1.2) mg/dL AST (0-40) U/L ALT (0-41) U/L Alkaline Phosphata se (40-130) IU/L Total Protein (6.6-8.7) g/dL Albumin (3.5-5.2) g/dL Globulin (1.3-4.6) g/dL Influenza Type A A g (Negative) Influenza Type B A g (Negative) SARS-CoV-2 Ag (Rap id) Positive H (Negative) COVID Results: SARS-CoV-2 Antigen (Rapid) Positive (Negative) H 02/15/21 07:33 02/15/21 Monoclonal Antibody - ED Inclusion/Exclusion Criteria age >/= 12 years, weight >/= 40kg /88lbs, symptom onset less than 10 days ago and + direct Sars-Cov-2 test less than 7-10 days ago obesity (BMI >25 or 85%til for age), cardiovascular disease or htn and chronic lung disease not requiring hospitalization and no increase oxygen requirement (if chronically on oxygen) Patient education patient/family/caregiver received/reviewed fact sheet, Emergency Use Authorization/unapproved drug status discussed with patient/family/caregiver, alternatives to this treatment discussed with patient/family/caregiver, risks and benefits of medication reviewed with patient/family/caregiver, patient/family/caregiver given opportunity for questions, which were answered an d patient consents to receiving Monoclonal Antibody Treatment Plan for treatment Meets criteria for Monoclonal Antibody infusion Date of symptom(s) onset: 02/14/21 Where are the positive COVID test results, if positive?: Resulted in [facility] Ordering Monoclonal Antibody infusion for today Discharge Plan Discharge Patient Disposition: Home Clinical Impression: COVID-19 Condition: Stable Prescriptions: No Action (DME) [employer] Care Lotion See Rx Instructions .Route .MEDSUPPLY Qty: 1 RF: 0 metoprolol tartrate 100 mg tablet 50 mg PO BID RF: 0 furosemide 40 mg tablet 40 mg PO DAILY RF: 0 dorzolamide-timolol 22.3-6.8 mg/mL drops 1 drop ophthalmic (eye) BID RF: 0 naproxen 250 mg tablet 250 mg PO BID PRNRF: 0 (DME) compr.stocking,knee,long,x-lrg Misc See Rx Instructions .ROUTE .MEDSUPPLY Qty: 2 RF: 0 (DME) Juzo Wrap 4 piece See Rx Instructions .Route .MEDSUPPLY Qty: 1 RF: 0 triamcinolone acetonide 0.1 % Cream 1 applic TOPICAL BID RF: 0 prednisolone acetate 1 % Drops,Suspension 1 drp OPHTHALMIC (EYE) DAILY RF: 0 hydrochlorothiazide 25 mg Tablet 25 mg PO BEDTIME RF: 0 ketoconazole 1 % Shampoo 1 applic TOPICAL EVERY OTHER DAY RF: 0 (DME) compr.stocking,knee,long,x-lrg Misc See Rx Instructions .ROUTE .MEDSUPPLY Qty: 2 RF: 0 valsartan 160 mg tablet 80 mg PO BID RF: 0 Discharge Orders: Discharge ED (Routine); Ordered 02/15/21 Ordered By: Kaylene Peters Referrals: Acacia Welch, [employer] [Primary Care Provider] - Activity Restrictions/Additional Instructions: As we discussed we are discharging you from the ED and you will go straight to the infusion center for your monoclonal antibody infusion. As we discussed [facility]. You may return to the emergency department for severe shortness of breath, difficulty breathing, fevers, generally feeling worse, or any other concerns you may have. Coding Level of Care Code ED Senior Logistics Manager for Janelle Ojeda Exam Comprehensive
[2021-02-15 07:32] VITALS: BP 151/93; PULSE 101; RESP 18; O2SAT 93
[2021-02-15 07:47] LABS: Basophils % 0.2 %; Eosinophils # 0.1 10^3/uL (0.0-0.8); Eosinophils % 2.1 %; Hematocrit 45.3 % (42.0-52.0); Hemoglobin 14.3 g/dL (11.7-16.6); Lymphocytes # 0.5 10^3/uL (0.8-4.8); Lymphocytes % 9.7 %; Mean Corpuscular HGB Conc 31.6 g/dL (30.0-36.0); Mean Corpuscular Hemoglobin 29.9 pg (28.0-34.0); Mean Corpuscular Volume 94.8 fl (80-94); Mean Platelet Volume 10.9 fL (7.4-10.4); Monocytes # 0.8 10^3/uL (0.2-0.9); Monocytes % 16.9 %; Neutrophils # 3.44 10^3/uL (1.8-7.7); Neutrophils % 70.7 %; Nucleated Red Blood Cells % 0 %; Platelet Count 151 10^3/cmm (130-400); Red Blood Count 4.78 10^6/uL (4.1-5.3); Red Cell Distribution Width 13.2 % (12.1-15.1); White Blood Count 4.9 10^3/uL (4.0-10.0)
[2021-02-15 08:10] LABS: Alanine Aminotransferase 37 U/L (0-41); Albumin Level 4.3 g/dL (3.5-5.2); Alkaline Phosphatase 98 IU/L (40-130); Anion Gap 11.3 (5-19); Aspartate Amino Transferase 22 U/L (0-40); Blood Urea Nitrogen 16 mg/dL (8-23); Calcium 9.7 mg/dL (8.5-10.5); Carbon Dioxide 35 mmol/L (22-29); Chloride 98 mmol/L (98-107); Globulin 3.2 g/dL (1.3-4.6); Glucose 104 mg/dL (65-115); Osmolality Calculated 291 mOsm/kg (285-295); Potassium 4.3 mmol/L (3.5-5.1); Sodium 140 mmol/L (136-145); Total Bilirubin 0.5 mg/dL (0.15-1.2); Total Protein 7.5 g/dL (6.6-8.7)
[2021-02-15 08:12] LABS: Influenza A by IFA Negative (Negative); Influenza B by IFA Negative (Negative); SARS Covid-2 Antigen Positive (Negative)
[2021-02-15 08:27] VITALS: BP 156/88; PULSE 99; RESP 16; O2SAT 93
== END 2021-02-15 08:27 | disposition home or self-care (01) ==
PROVIDERS: Emergency Provider Physician Assistant; PCP Nurse Practitioner
DX: U07.1 COVID-19 (principal); I50.9 Heart failure, unspecified; Z87.891 Personal history of nicotine dependence
CPT/HCPCS: 71045; 80053; 85025; 87426; 87804; 99283

== ENCOUNTER 2021-10-29 20:18 | Emergency (ER) | payer OTHER, SELFPAY ==
[2021-10-29 20:19] VITALS: BP 167/114; PULSE 77; RESP 18; TEMP 36.3; O2SAT 97
--- NOTE | 2021-10-29 20:24 | W.ED.LOWEXIN ---
HPI - Extremity Injury (Lower) General: Chief Complaint: Extremity Injury, Lower Stated Complaint: RIGHT HIP PAIN Time Seen by Provider: 10/29/21 20:23 History of Present Illness: Mr. Pza is a 71-year-old gentleman who presents to the emergency department due to right hip and elbow pain on the left. He reportedly had a fall a number of weeks ago and was not evaluated and since that time is mild left elbow pain that is worsened with range of motion. Additionally he developed nontraumatic right hip pain mostly starting yesterday. He endorses lateral pain with radiation down the leg at times worse with ambulation. He has not noticed any skin lesions or swelling of the extremity. There is no associated weakness. Intensity symptoms is moderate and at times severe. He has tried home medications without significant relief. No change in bowel or bladder habits. No midline back pain. Onset (ago): day(s) Severity: moderate Relieving factors: nothing Exacerbating factors: movement and palpation Review of Systems General: Reports: 10 or more systems reviewed and unremarkable except in HPI and below PFSH ED PFSH: Medical History Borderline personality disorder CHF (congestive heart failure) Peripheral Vascular Disease Varicose veins of bilateral lower extremities with other complications Surgical History History of back surgery S/P carpal tunnel release S/P cholecystectomy S/P foot surgery S/P routine circumcision Family History Mother Cancer Breast CA Father CAD (coronary artery disease) Myocardial infarct [place] age 58 Diabetes Stroke Hypertension Social History Smoking and tobacco status: former smoker Physical Exam Const: COMMON NORMALS: alert GENERAL APPEARANCE: cooperative, well developed and ill appearing (Chronically) HENMT: COMMON NORMALS: normocephalic and atraumatic HEAD & SCALP: normocephalic and atraumatic Eye: COMMON NORMALS: conjunctivae normal CONJUNCTIVA: Yes conjunctivae normal SCLERA: sclerae normal Neck/C-Spine: COMMON NORMALS: supple GENERAL: Yes trachea midline Resp: COMMON NORMALS: normal respiratory effort EFFORT & INSPECTION: Yes able to speak in complete sentences Cardio: COMMON NORMALS: regular rate and regular rhythm RATE: regular rate RHYTHM: regular rhythm GI: COMMON NORMALS: Soft to palpation PALPATION: Yes Soft to palpation and No Tenderness to palpation present (GI) PERCUSSION: normal to percussion Back/Pelvis: OTHER: Right SI region tender to palpation. Extremity: NARRATIVE EXTREMITY EXAM: Right lateral trochanter tender to palpation. Some tenderness with range of motion of leg. No obvious deformity. Distal CMS intact. GENERAL: Yes normal exam except as noted and No edema Neuro: COMMON NORMALS: moves all extremities SENSORIUM/ORIENTATION: Yes alert and No Orientation impaired Psych: COMMON NORMALS: mental status grossly normal and Normal thought process present THOUGHT PROCESS: Normal thought process present Course ED course: - Patient was seen and evaluated by me at bedside - Vital signs obtained - Initial evaluation notable for exam as above - Analgesia given - Imaging notable for no acute finding on elbow or hip x-ray. - Upon serial reexamination after treatment the patient was improved - Based on patient history, evaluation, and testing as interpreted the most likely cause of the patient's condition is somewhat unclear. It seems that the patient has pain that is more consistent with 2 separate processes. He does describe more of a lumbar radicular type pain though he does have palpation over the greater trochanter which is more consistent with a bursitis type picture. - The results of ED evaluation were discussed with the patient including prescriptions and/or symptomatic cares (if applicable) including appropriate and responsible use, followup plan, and return precautions. The patient verbalized understanding and felt safe for discharge. - Patient discharged in satisfactory condition. Note: Click bubbles or prepopulated garcia in note writing are used for assistance with data collection and billing and are inherently more limited than narrative and other text portions of this note. Please use narrative for additional clinical history and defer to narrative/free test for any case of contradictory information. If information appears in only free text or click bubble it should be considered present or absent as reported. Please contact note typewriter assembly and parts inspector for clarifications of clinical information or contradictory information. MDM is a brief summary, contradictory or erroneous seeming information should be clarified and full note should be reviewed. Vital Signs: Vital signs: Vital Signs Temperature 97.4 F L 10/29/21 20:19 Pulse Rate 67 10/29/21 22:38 Respiratory Rate 18 10/29/21 22:38 Blood Pressure 123/83 10/29/21 22:38 Pulse Oximetry 98 10/29/21 22:38 MDM - Extremity Injury (Lower) Medical Decision Making 71-year-old gentleman presenting with atraumatic hip pain and traumatic left elbow pain. X-rays negative. Most consistent with 2 separate processes. Plan to treat for lumbar radiculopathy as well as bursitis type picture. Satisfactory for outpatient management. Medical Records I reviewed the patient's medical records. Lab Data I reviewed the patient's lab results. Radiology Impressions Elbow X-Ray 10/29/21 20:33 IMPRESSION: No acute findings. Hip/Pelvis X-Ray 10/29/21 20:33 IMPRESSION: Negative for acute abnormality. Discharge Plan Discharge Patient Disposition: Home Clinical Impression: Lumbar radicular pain, Hip pain, Elbow pain Condition: Stable Prescriptions: New oxycodone 5 mg tablet 5 mg PO Q6H PRN (Reason: pain) Qty: 6 0RF No Action (DME) Amerigel Care Lotion See Rx Instructions .Route .MEDSUPPLY Qty: 1 0RF Rx Instructions: As directed metoprolol tartrate 100 mg tablet 50 mg PO BID 0RF furosemide 40 mg tablet 40 mg PO DAILY 0RF dorzolamide-timolol 22.3-6.8 mg/mL drops 1 drop ophthalmic (eye) BID 0RF naproxen 250 mg tablet 250 mg PO BID PRN0RF (DME) compr.stocking,knee,long,x-lrg Misc See Rx Instructions .ROUTE .MEDSUPPLY Qty: 2 0RF Rx Instructions: Zip up stockings (DME) Juzo Wrap 4 piece See Rx Instructions .Route .MEDSUPPLY Qty: 1 0RF Rx Instructions: As directed triamcinolone acetonide 0.1 % Cream 1 applic TOPICAL BID 0RF prednisolone acetate 1 % Drops,Suspension 1 drp OPHTHALMIC (EYE) DAILY 0RF Rx Instructions: (left eye) hydrochlorothiazide 25 mg Tablet 25 mg PO BEDTIME 0RF ketoconazole 1 % Shampoo 1 applic TOPICAL EVERY OTHER DAY 0RF (DME) compr.stocking,knee,long,x-lrg Misc See Rx Instructions .ROUTE .MEDSUPPLY Qty: 2 0RF Rx Instructions: As directed valsartan 160 mg tablet 80 mg PO BID 0RF Discharge Orders: Discharge ED (Routine); Ordered 10/29/21 Ordered By: Jay Dougherty Referrals: Acacia Welch FNP [Primary Care Provider] - Discharge Diet: Usual diet Discharge Activity: Increase activity as tolerated Patient Instructions: Lumbar Radiculopathy (ED), Hip Pain (ED), Opioid Safety Activity Restrictions/Additional Instructions: Thank you for visiting the emergency department. You were seen and evaluated for hip pain. The exact cause of your symptoms is unclear though likely multifactorial including lumbar radiculopathy and mild bursitis of the greater trochanter. Will be given prescriptions, you may also use [id number] medications though please do not exceed the daily recommended dosage. Please return to the emergency department for uncontrolled symptoms or anything else that you are concerned about and feel needs emergency department evaluation. Coding Level of Care Code ED Institutional Commodity Analyst for Janelle Ojeda
--- NOTE | 2021-10-29 20:33 | XRR_ITS ---
PROCEDURE INFORMATION: Exam: XR Right Hip Exam date and time: 10/29/2021 8:40 PM Age: 71 years old Clinical indication: Hip pain; Right hip; Additional info: Right hip pain, lateral TECHNIQUE: Imaging protocol: XR Right hip. Views: 1 view hip with pelvis when performed. COMPARISON: [facility] Runoff Leg [id number] 12/16/2017 12:25 PM FINDINGS: Bones/joints: Negative for acute fracture. No aggressive osteolytic lesion. No osteonecrosis. Normal hip joint alignment. Osteophytes of the lateral acetabular margin. Moderate joint space narrowing. Soft tissues: Unremarkable. XR/XR hip RT 2-3V wo/w pel* [id number] IMPRESSION: Negative for acute abnormality.
--- NOTE | 2021-10-29 20:33 | XRR_ITS ---
PROCEDURE INFORMATION: Exam: XR Left Elbow Exam date and time: 10/29/2021 8:40 PM Age: 71 years old Clinical indication: Pain; Elbow; Left; Additional info: Elbow pain post fall TECHNIQUE: Imaging protocol: XR Left elbow. Views: 1 or 2 views. COMPARISON: No relevant prior studies available. FINDINGS: Bones/joints: Normal. Soft tissues: No significant finding. XR/XR elbow LT 2V [id number] IMPRESSION: No acute findings.
[2021-10-29 22:25] VITALS: BP 123/83; PULSE 67; RESP 18; O2SAT 98
[2021-10-29] MEDS: predniSONE 20 mg Tablet 40 MG PO (22:25)
[2021-10-29 22:38] VITALS: BP 123/83; PULSE 67; RESP 18; O2SAT 98
== END 2021-10-29 22:44 | disposition home or self-care (01) ==
PROVIDERS: Emergency Provider Emergency Medicine; PCP Nurse Practitioner
DX: M25.551 Pain in right hip (principal); M54.50 Low back pain, unspecified; M25.522 Pain in left elbow
CPT/HCPCS: 73070; 73502; 99283; J7512

== ENCOUNTER 2021-11-12 14:24 | Emergency (ER) | payer OTHER, SELFPAY ==
[2021-11-12 14:29] VITALS: BP 190/110; PULSE 107; RESP 19; TEMP 36.6; O2SAT 94; BMI 35.2
--- NOTE | 2021-11-12 15:25 | ED_ITS ---
HPI - Extremity Problem General: Chief complaint: Extremity Problem,Nontraumatic Stated complaint: Pain in hip and down right leg Time Seen by Provider: 11/12/21 15:09 Source: patient Mode of arrival: ambulatory Limitations: no limitations History of Present Illness: Patient is a 71-year-old male who presents to ED today with what he states is right-sided sciatica pain. Patient states he has been diagnosed with this through the [facility]. He states he is having pain to the right side of his back with radiation down into his right lower extremity. Patient states he has had this pain for a long time. He states he also suffers from chronic neck pain. He states over the past few weeks the pain in his right back and leg have been worsening. He does describe it as a nervelike burning sensation. He states he has a difficult time getting comfortable in any position. Patient states at one point he was being followed by [facility] pain management however he states he tried hemp oil from a friend and this caused him to test positive for THC therefore was apparently let go from pain management. He states the IA has placed a new referral to [place] pain management but this appointment isn't for a few more weeks. He states the IA won't do anything for pain . Patient denies any saddle anesthesia. He is not having any issues with urine or bowel incontinence/retention. He is ambulatory with the help of his cane. He has not noticed any color/temperature changes to his lower extremities. He does have chronic peripheral arterial disease and lymphedema. Of note triage did mention a significant amount of weight loss over the past few months-when questioned on this he states this is intentional and he has been dieting and trying to eat better. Complaint: extremity pain Onset (ago): week(s) Pain Consistency: constant Location: right and lower extremity Severity scale (1-10): >10 Quality: burning and constant Relieving factors: nothing Exacerbating factors: nothing Associated symptoms: Deny chest pain, fever(s) or rash Review of Systems Const: Denies: fever(s), chills, body aches, fatigue or malaise Card: Denies: chest pain Resp: Denies: dyspnea GI: Denies: abdominal pain : Denies: flank pain, dysuria, hematuria or genital pain Musc: Reports: back pain and extremity pain; Denies: neck pain, extremity swelling, joint pain, joint swelling, joint redness, joint warmth, joint stiffness, muscle weakness or decrease in muscle mass Skin/Breast: Denies: rash Neuro: Denies: headache(s), numbness in extremities, weakness in extremities, sensory changes, lack of coordination or dizziness PFSH ED PFSH: Medical History Borderline personality disorder CHF (congestive heart failure) Peripheral Vascular Disease Varicose veins of bilateral lower extremities with other complications Surgical History History of back surgery S/P carpal tunnel release S/P cholecystectomy S/P foot surgery S/P routine circumcision Family History Mother Cancer Breast CA Father CAD (coronary artery disease) Myocardial infarct [place] age 58 Diabetes Stroke Hypertension Social History Smoking and tobacco status: former smoker Physical Exam Const: COMMON NORMALS: no acute distress, patient oriented x3, no limitations and alert GENERAL APPEARANCE: cooperative NUTRITIONAL APPEARANCE: overweight ORIENTATION/CONSCIOUSNESS: Yes awake, Yes oriented to person, Yes oriented to place and Yes oriented to time HENMT: COMMON NORMALS: normocephalic and atraumatic HEAD & SCALP: normal to inspection, normocephalic and atraumatic Resp: COMMON NORMALS: normal respiratory effort and clear to auscultation bilaterally AUSCULTATION: clear to auscultation bilaterally Cardio: COMMON NORMALS: regular rate and regular rhythm RATE: regular rate RHYTHM: regular rhythm GI: COMMON NORMALS: Normal to inspection, nondistended, normoactive bowel sounds present, Soft to palpation, non-tender and no masses PALPATION: Yes Soft to palpation Back/Pelvis: THORACIC SPINE/UPPER BACK: Yes normal to inspection, Yes thoracic ROM normal, No thoracic spinal tenderness, No paraspinal muscle tenderness and No paraspinal muscle spasm LUMBAR SPINE/LOWER BACK: Yes ROM limited, Yes pain with ROM, No lumbar spinal tenderness, Yes paraspinal muscle tenderness Lumbar paraspinal muscle tenderness: right, No paraspinal muscle spasm and No mass present PELVIS: Yes sciatic notch tenderness on the right SACROILIAC JOINTS: Yes SI joint(s) abnormal SI joint details: tender to palpation (right) SACRUM: no tenderness COCCYX: no tenderness Extremity: COMMON NORMALS: full ROM and no calf tenderness NARRATIVE EXTREMITY EXAM: patient has significant skin changes related to chronic PAD; bilateral feet are warm to touch and equal color/temp with brisk cap refill; he does have some equal bilateral edema that he states is at baseline; chronic onychodystrophy GENERAL: Yes normal exam except as noted Neuro: HEATHER COMA SCALE: document GCS findings Heather coma scale eye opening: Spontaneous Heather coma scale verbal response: Orientated Thornton coma scale motor response: Obey commands Heather coma scale total score: 15 COMMON NORMALS: patient oriented x3, moves all extremities, no focal motor deficits and no sensory deficits noted SENSORIUM/ORIENTATION: Yes alert, Yes oriented to person, Yes oriented to place and Yes oriented to time MOTOR EXAM: 5/5 motor strength present throughout Course Vital Signs: Vital signs: Vital Signs Temperature 97.9 F 11/12/21 14:29 Pulse Rate 78 11/12/21 16:31 Respiratory Rate 20 H 11/12/21 16:31 Blood Pressure 180/108 11/12/21 16:31 Pulse Oximetry 95 11/12/21 16:31 MDM - Extremity (Nontraumatic) Medical Decision Making History and physical exam support the diagnosis of acute on chronic right-sided sciatica. Of note he was noted to be very hypertensive in triage. Patient admittedly has not taken his blood pressure medications today. Mood seems to be labile as he often will cry in frustration and then become agitated that nobody seems to be willing/able to treat his pain. He is not SI/HI. We spoke about medications like lyrica/gabapentin but he states he has been on these previously and didn't like the side effects. States he has been on steroids/muscle relaxers and didn't feel like these controlled his pain. He states he was getting percocet from pain management. I told him from the ED we often don't prescribe controlled pain medications for chronic conditions. I don't doubt he is in legitimate discomfort and he is rarely seen in the ED therefore we had a long discussion about trying steroids/muscle relaxers and I would write for a very small amount of hydrocodone that he is to use sparingly and that no further prescriptions will be written for this from the ED. I strongly [facility] and continue to contact pain management and maybe they can call him with a last minute cancellation. Discharge Plan Discharge Patient Disposition: Home Clinical Impression: Lumbar radiculopathy, right Condition: Stable Prescriptions: New hydrocodone-acetaminophen 5-325 mg tablet 1 tab PO Q6H PRN (Reason: pain) Qty: 12 0RF methocarbamol 750 mg tablet 1,500 mg PO Q8H Qty: 30 0RF Medrol (Alexandru) 4 mg tablets,dose pack See Rx Instructions .ROUTE .COMPLEX Qty: 21 0RF Rx Instructions: orally per package directions Discontinued oxycodone 5 mg tablet 5 mg PO Q6H PRN (Reason: pain) Qty: 6 0RF No Action (DME) [employer] Care Lotion See Rx Instructions .Route .MEDSUPPLY Qty: 1 0RF Rx Instructions: As directed metoprolol tartrate 100 mg tablet 50 mg PO BID 0RF furosemide 40 mg tablet 40 mg PO DAILY 0RF dorzolamide-timolol 22.3-6.8 mg/mL drops 1 drop ophthalmic (eye) BID 0RF naproxen 250 mg tablet 250 mg PO BID PRN0RF (DME) compr.stocking,knee,long,x-lrg Misc See Rx Instructions .ROUTE .MEDSUPPLY Qty: 2 0RF Rx Instructions: Zip up stockings (DME) Juzo Wrap 4 piece See Rx Instructions .Route .MEDSUPPLY Qty: 1 0RF Rx Instructions: As directed triamcinolone acetonide 0.1 % Cream 1 applic TOPICAL BID 0RF prednisolone acetate 1 % Drops,Suspension 1 drp OPHTHALMIC (EYE) DAILY 0RF Rx Instructions: (left eye) hydrochlorothiazide 25 mg Tablet 25 mg PO BEDTIME 0RF ketoconazole 1 % Shampoo 1 applic TOPICAL EVERY OTHER DAY 0RF (DME) compr.stocking,knee,long,x-lrg Misc See Rx Instructions .ROUTE .MEDSUPPLY Qty: 2 0RF Rx Instructions: As directed valsartan 160 mg tablet 80 mg PO BID 0RF Discharge Orders: Discharge ED (Routine); Ordered 11/12/21 Ordered By: Kaylene Peters Referrals: Acacia Welch FNP [Primary Care Provider] - Patient Instructions: Opioid Safety Coding Level of Care Code ED Sports Equipment Supervisor for Chg Rusty
[2021-11-12 16:05] VITALS: RESP 20
[2021-11-12] MEDS: morphine 4 mg/mL SDV 1 mL IM (16:05)
[2021-11-12] MEDS: dexamethasone 10 mg/mL INJ 6 MG IM (16:06)
[2021-11-12] MEDS: orphenadrine 30 mg/mL Inj 2 mL 60 MG IM (16:06)
[2021-11-12 16:31] VITALS: BP 180/108; PULSE 78; RESP 20; O2SAT 95
== END 2021-11-12 16:35 | disposition home or self-care (01) ==
PROVIDERS: Emergency Provider Physician Assistant; PCP Nurse Practitioner
DX: M54.16 Radiculopathy, lumbar region (principal)
CPT/HCPCS: 96372; 99283; J1100; J2270; J2360

== ENCOUNTER 2022-03-11 11:33 | Outpatient (CLI) | payer OTHER, SELFPAY ==
--- NOTE | 2022-03-11 11:46 | MR_ITS ---
WS: [id number] MRI LUMBAR SPINE WITH CONTRAST TECHNIQUE: Sagittal T1, T2 and STIR imaging. Axial T1 and T2 imaging. Post gadolinium imaging was obt ained. CLINICAL INFORMATION: LUMBAR POST LAMINECTOMY SYNDROME COMPARISON: None. FINDINGS: Mild lumbar curve. No acute compression. Moderate to severe central canal stenosis L2-L3 due to disc bulging with facet arthropathy and ligamentum flavum hypertrophy. L1-L2: Mild annular bulging. Moderate facet arthropathy. Impingement subarticular recess bilaterally. Mild bilateral foraminal narrowing. Mild central canal stenosis. L2-L3: Mild disc bulging with osteophytic ridging. Impingement subarticular recess bilaterally. Moder ate to severe central canal stenosis. Evidence of prior remote laminectomy at this level. Mild to mod erate bilateral foraminal narrowing. L3-L4: RIGHT subarticular disc protrusion impinges the traversing RIGHT L4 nerve root in the subartic ular recess. Mild central canal stenosis. Moderate facet arthropathy. Moderate RIGHT and mild LEFT fo raminal narrowing. L4-L5: Mild disc bulging with mild central canal stenosis. Impingement on the RIGHT greater than LEFT subarticular recess and traversing RIGHT L5 nerve root. Evidence of remote hemilaminectomies at this level. Moderate RIGHT foraminal narrowing. Mild LEFT foraminal narrowing. L5-S1: Mild disc bulging with osteophytic ridging. Disc desiccation. Osteophytic ridging slightly imp inges the traversing LEFT greater than RIGHT S1 nerve roots. Moderate facet arthropathy. Foramen are patent. Small bilateral renal cysts. Slightly aneurysmal infrarenal abdominal aorta measuring 2.2 cm in AP di mension MR/MR lumbar spine wo/w con [id number] IMPRESSION: 1. Moderate to severe central canal stenosis L2-L3 due to disc bulging with os teophytic ridging in combination with facet arthropathy and ligamentum flavum h ypertrophy. Impingement on the traversing L3 nerve roots bilaterally. 2. Mild central canal stenosis L3-L4 with impingement traversing RIGHT L4 nerv e root in the subarticular recess. 3. Mild central canal stenosis L4-L5 impinges the traversing L5 nerve roots. M ild central canal stenosis. 4. Disc osteophyte complex L5-S1 impinges the traversing LEFT S1 nerve root. 5. Pnoi-bq-qecsuwhd's foraminal narrowing worse at RIGHT L3-L4 and RIGHT L4-L5 with impingement on the exiting L3 and L4 nerve roots respectively. 6. Mild to moderate bilateral L1-L2 and L2-L3 bony foraminal narrowing.
[2022-03-11] MEDS: gadobenate dimeglumine 20 mL vial IV (12:56)
== END 2022-03-11 11:34 | disposition home or self-care (01) ==
PROVIDERS: PCP Nurse Practitioner; Visit Provider General Practice
DX: M96.1 Postlaminectomy syndrome, not elsewhere classified (principal)
CPT/HCPCS: 72158

== ENCOUNTER → 2022-03-23 13:45 | Outpatient (BNVA) | payer OTHER, SELFPAY | PROVIDERS: PCP Nurse Practitioner; Visit Provider Internal Medicine Cardiovascular Disease | DX: I73.9 Peripheral vascular disease, unspecified (principal); I50.30 Unspecified diastolic (congestive) heart failure; I89.0 Lymphedema, not elsewhere classified; I83.93 Asymptomatic varicose veins of bilateral lower extremities; Z87.891 Personal history of nicotine dependence | CPT/HCPCS: 93005; 99214 ==

== ENCOUNTER → 2022-04-20 13:20 | Outpatient (BNVA) | payer OTHER, SELFPAY | PROVIDERS: PCP Nurse Practitioner; Visit Provider Nurse Practitioner Family | DX: I73.9 Peripheral vascular disease, unspecified (principal) | CPT/HCPCS: 36415; 80048; 83880; 99213; 99214 ==

== ENCOUNTER 2022-05-14 09:28 | Outpatient (CLI) | payer OTHER, SELFPAY ==
--- NOTE | 2022-05-14 09:30 | USCV_ITS ---
Ac Paz Age: 72 Gender: M : 1950 Exam Date: 05/14/2022 09:52 Ordering Phys: Brooklyn Torres Technologist: ROBERT Exam Location: [facility] [place]: HISTORY: PROCEDURES: FINDINGS: The veins were found to be easily compressible with spontaneous blood flow. Non pulsatile flow pattern. Significant venous reflux were noted in the greater saphenous vein segments bilaterally No significant venous reflux were noted in the deep veins CONCLUSIONS 1. No evidence of DVT in the above-mentioned identifiable veins. 2. On the right side significant venous reflux of greater than 500 ms were noted distal to the saphenofemoral junction, proximal and below- knee segments of the greater saphenous veins. The venous segment distal to the saphenofemoral junction was 0.56 in diameter and was at a depth of 1.2 cm from the surface. The proximal and the below-knee segments were 0.32 and 0.3 cm respectively in diameter and were less than 1 cm deep from the surface. 3. On the left side significant venous reflux of greater than 500 ms were noted distal to the saphenofemoral junction, proximal and below- knee segments of the greater saphenous vein. These venous segments were measuring 0.4, 0.25 and 0.21 cm respectively in diameter. The greater saphenous vein distal to the saphenofemoral junction and the proximal segments were greater than 1 cm deep from the surface. The venous segment at the below-knee level was less than 1 cm from the surface. Dr Yasmani Jorge MD [facility] (Electronically Signed) Final Date: 19 May 2022 19:03 S
[2022-05-14] MEDS: iohexol 350 mg/mL 500 mL Btl (per mL) IV (10:26)
--- NOTE | 2022-05-14 11:15 | CT_ITS ---
WS: [id number] CTA ABDOMINAL AORTA WITH RUNOFF TECHNIQUE: Contrast enhanced CTA of the abdominal aorta with bilateral lower extremity runoff. Multip lanar reformatted images were obtained. MIP reformats were also reviewed. CLINICAL INFORMATION: cool extremities, skin color changes, hx of PVD COMPARISON: None. DLP: 1070.[address] scans at [facility] use at least one of these dose optimization techniques: automated e xposure control; mA and/or kV adjustment per patient size (includes targeted exams where dose is matc hed to clinical indication); or iterative reconstruction. FINDINGS: Mild aortic calcification. Small infrarenal abdominal aortic aneurysm measuring 2.5 x 2.6 c m AP by transverse. Progressed since 2018. Celiac and SMA are patent. Proximal renal arteries are pat ent with mild calcification. CATHERINE is patent. Proximal common iliac arteries are patent with calcification and atheromatous disease. RIGHT: Common iliac artery is patent. Internal iliac artery is patent. Normal external iliac artery. Common femoral artery is patent. Superficial femoral and deep femoral arteries are patent. Mild steno sis in the distal SFA at the adductor hiatus. Popliteal artery is patent to the trifurcation. Dominan t two-vessel runoff to the ankle. Somewhat diminutive posterior tibial artery. LEFT: Normal common iliac artery. Calcification internal iliac artery which remains patent. External iliac artery is patent. Common femoral artery and superficial femoral arteries are patent. Deep femor al artery is patent. Popliteal artery is patent to the trifurcation. Dense calcification tibioperonea l trunk. Dominant two-vessel runoff to the ankle. Somewhat poor flow in the posterior tibial artery. Lung bases are well aerated. Normal liver. Normal spleen. Small esophageal hiatal hernia. Fatty atrop hy of the pancreas. Adrenal glands are normal. Normal renal parenchymal enhancement. No hydronephrosi s. Prostate calcification. Prostate enlargement. Recommend correlation PSA. Sigmoid diverticulosis. Lumb ar curve. Spondylitic changes lumbar spine. CT/CT angio abd aorta runof [id number] IMPRESSION: Overall peripheral vascular disease slightly progressed since 2018 1. No flow-limiting stenosis in the RIGHT lower extremity. Dominant two-vessel runoff to the ankle. Mild stenosis involving the distal superficial femoral ar osbaldo at the adductor hiatus which remains patent. 2. No flow-limiting stenosis in the LEFT lower extremity. Dominant two-vessel runoff to the ankle. 3. Small infrarenal abdominal aortic aneurysm measuring 2.5 x 2.6 cm AP by tra nsverse appears new/progressed compared to 2018. 4. Celiac and SMA are patent. CATHERINE is patent. 5. Nonvascular findings described above.
== END 2022-05-14 09:29 | disposition home or self-care (01) ==
LOC: RAD 09:30
PROVIDERS: PCP Nurse Practitioner; Visit Provider Nurse Practitioner Family
DX: I83.893 Varicose veins of bilateral lower extremities with other complications (principal); I73.9 Peripheral vascular disease, unspecified; I71.40 Abdominal aortic aneurysm, without rupture, unspecified
CPT/HCPCS: 75635; 93970

== ENCOUNTER → 2022-05-20 09:34 | Outpatient (BNVA) | payer OTHER, SELFPAY | PROVIDERS: PCP Nurse Practitioner; Visit Provider Nurse Practitioner Family | DX: I50.30 Unspecified diastolic (congestive) heart failure (principal); I83.893 Varicose veins of bilateral lower extremities with other complications; Z87.891 Personal history of nicotine dependence | CPT/HCPCS: 99214 ==

== ENCOUNTER 2022-07-10 18:35 | Emergency (ER) | payer OTHER, SELFPAY ==
[2022-07-10 18:46] VITALS: BP 142/91; PULSE 115; RESP 18; TEMP 36.7; O2SAT 94
--- NOTE | 2022-07-10 18:52 | W.ED.EXTPRO ---
HPI - Extremity Problem General: Chief complaint: Extremity Injury, Lower Stated complaint: left foot pain Time Seen by Provider: 07/10/22 18:52 History of Present Illness: 72-year-old male patient comes in today with complaints of redness and a rash to the left lateral ankle. Patient denies any injury. Patient does have peripheral vascular disease and has recurrent episodes of cellulitis and swelling. Patient appears nontoxic. Patient reports no fever. Patient reports no increase in pain. Review of Systems Musc: Reports: extremity pain and extremity swelling Skin/Breast: Reports: erythema PFSH ED PFSH: Medical History Borderline personality disorder CHF (congestive heart failure) Peripheral Vascular Disease Varicose veins of bilateral lower extremities with other complications Surgical History History of back surgery S/P carpal tunnel release S/P cholecystectomy S/P foot surgery S/P routine circumcision Family History Mother Cancer Breast CA Father CAD (coronary artery disease) Myocardial infarct [place] age 58 Diabetes Stroke Hypertension Social History Smoking and tobacco status: former smoker Physical Exam Const: COMMON NORMALS: alert HENMT: COMMON NORMALS: normocephalic HEAD & SCALP: normocephalic Neck/C-Spine: COMMON NORMALS: full ROM Resp: COMMON NORMALS: normal respiratory effort Cardio: COMMON NORMALS: regular rate RATE: regular rate Extremity: LEFT LOWER EXTREMITY: Yes foot & digits (Circular patch rash with central clearing) Neuro: SENSORIUM/ORIENTATION: Yes alert Skin: RASHES: no rashes (Left lateral ankle) Course Vital Signs: Vital signs: Vital Signs Temperature 98.1 F 07/10/22 18:46 Pulse Rate 115 H 07/10/22 18:46 Respiratory Rate 18 07/10/22 18:46 Blood Pressure 142/91 07/10/22 18:46 Pulse Oximetry 94 07/10/22 18:46 Oxygen Delivery Me thod 07/10/22 18:46 MDM - Extremity (Nontraumatic) Medical Decision Making Patient comes in today for complaints of swelling and redness to the lower extremity on the left side. Patient is also concerned of a rash. On exam we know a circular patterned rash to the lateral left ankle. Patient also has some increased erythema to the dorsal aspect of bilateral feet. Patient has decreased pulses to the lower extremities. Patient is known to have peripheral vascular disease. Differential diagnosis includes not limited to stasis dermatitis, tinea pedis, cellulitis. Suspect patient probably has a bout of tinea pedis we will start on terbinafine. We will cover for secondary cellulitis. Patient requested 8 rounds of steroid for his support dermatitis. Prescriptions were written patient was covered for antibiotic dose tonight and drain. Patient reported understanding of care plan need for follow-up or return to ER. Discharge Plan Discharge Patient Disposition: Home Clinical Impression: Cellulitis of foot, PVD (peripheral vascular disease) Tinea pedis Qualifiers: Laterality: unspecified laterality Qualified Code(s): B35.3 - Tinea pedis Condition: Stable Prescriptions: New terbinafine HCl 1 % cream 1 applic topical BID Qty: 30 0RF Rx Instructions: rash on foot cephalexin 500 mg capsule 500 mg PO Q8H 7 Days Qty: 21 0RF dexamethasone 4 mg tablet 4 mg PO DAILY Qty: 7 0RF No Action (DME) [employer] Care Lotion See Rx Instructions .Route .MEDSUPPLY Qty: 1 0RF Rx Instructions: As directed dorzolamide-timolol 22.3-6.8 mg/mL drops 1 drop ophthalmic (eye) BID naproxen 250 mg tablet 250 mg PO BID PRN methocarbamol 750 mg tablet 1,500 mg PO Q8H PRN medical marijuana PO furosemide 40 mg tablet 120 mg PO DIRECTED Qty: 270 3RF Rx Instructions: 80mg (2 tabs) in AM and 40mg (1 tab) in PM metoprolol tartrate 25 mg tablet 25 mg PO BID Qty: 180 3RF potassium gluconate 600 mg (99 mg) tablet 600 mg PO DAILY cefuroxime axetil 500 mg tablet 500 mg PO BID 10 Days Qty: 20 0RF (DME) compr.stocking,knee,long,x-lrg Misc See Rx Instructions .ROUTE .MEDSUPPLY Qty: 2 0RF Rx Instructions: Zip up stockings ketoconazole 1 % Shampoo 1 applic TOPICAL EVERY OTHER DAY Discharge Orders: Discharge ED (Routine); Ordered 07/10/22 Ordered By: Yves Larsen Referrals: Acacia Welch, CABLE WORKER HELPER [Primary Care Provider] - Discharge Diet: Usual diet Discharge Activity: Increase activity as tolerated Patient Instructions: Cellulitis (ED) Activity Restrictions/Additional Instructions: Home and rest. Elevate feet is much as possible. Use terbinafine cream twice daily to the rash for the next 14 days. Have medication filled as soon as possible and initiate treatment as directed. Follow-up with primary care for further instruction. Return to ED for new concerns or worsening symptoms. Coding Level of Care Code ED Corporate Compliance Officer for Janelle Ojeda
[2022-07-10] MEDS: terbinafine 1% Cream 15 gm 1 APPLIC TOPICAL (19:24)
[2022-07-10] MEDS: cefTRIAXone 1,000 MG in water for injection-sterile 2.1 ML 2.1 MG IM (19:24)
[2022-07-10] MEDS: dexamethasone 10 mg/mL INJ IM (19:24)
== END 2022-07-10 19:30 | disposition home or self-care (01) ==
PROVIDERS: Emergency Provider Nurse Practitioner Family; PCP Nurse Practitioner
DX: L03.116 Cellulitis of left lower limb (principal); I73.9 Peripheral vascular disease, unspecified; B35.3 Tinea pedis; I50.9 Heart failure, unspecified; Z87.891 Personal history of nicotine dependence
CPT/HCPCS: 96372; 99284; J0696; J1100

== ENCOUNTER 2022-11-26 10:43 | Outpatient (RCR) | payer OTHER, SELFPAY | END 2022-12-25 23:59 | disposition home or self-care (01) | LOC: SPT 10:43 | PROVIDERS: PCP Nurse Practitioner; Visit Provider Nurse Practitioner | DX: M54.50 Low back pain, unspecified (principal) | CPT/HCPCS: 97110; 97162 ==

== ENCOUNTER 2022-12-14 13:37 | Emergency (ER) | payer OTHER, SELFPAY ==
[2022-12-14 13:41] VITALS: BP 115/76; PULSE 90; RESP 16; TEMP 36.3; O2SAT 95; BMI 30.7
--- NOTE | 2022-12-14 14:30 | ECG_ITS ---
[facility] Test Date: 2022-12-14 Pat Name: Ac Paz Department: Room: Gender: Male Medical Office Asst: : 1950 Requested By: Arturo Huynh Order Number: [id number] Lucero MD: Raul Caballero M.D. Measurements Intervals [place] Rate: 76 P: 32 WV: 171 QRS: 53 QRSD: 104 T: 42 QT: 391 QTc: 441 Interpretive Statements SINUS RHYTHM No previous ECG available for comparison Electronically Signed On 12-14-2022 17:24:10 CDT by Raul Caballero M.D. [id number]
--- NOTE | 2022-12-14 14:30 | XR_ITS ---
WS: [id number] EXAMINATION: XR chest 1V portable [id number] REASON FOR EXAM: dyspnea/cough COMPARISON: 02/15/2021 ORDER DATE: 12/14/2022 2:30 PM TECHNIQUE: A single, portable frontal chest x-ray was obtained. X-RAY FINDINGS: The lungs are clear of infiltrate. There are several small bilateral vague nodules most of which are granulomatous but a significant small nodule cannot be ruled out. Pleural spaces are clear. No pleural effusions or pneumothorax. Cardiomediastinal silhouette is normal. No evidence for pulmonary edema. Soft tissue and osseous structures are unremarkable. No tubes or lines are present. XR/XR chest 1V portable [id number] IMPRESSION: There are a few small vague indeterminate pulmonary nodules but most if not al l are granulomatous...
--- NOTE | 2022-12-14 14:41 | XR_ITS ---
WS: [id number] EXAMINATION: XR shoulder LT min 2V* [id number] REASON FOR EXAM: pain COMPARISON: None available. ORDER DATE: 12/14/2022 2:51 PM TECHNIQUE: 3 views of the left shoulder were obtained. X-RAY FINDINGS: No fractures or dislocations. There is an atypical orientation of the acromion process which is not able to be further evaluated si nce this positions obtained of the shoulder are very similar with minimal movement at the glenohumera l joint. Moderate glenohumeral joint space narrowing. Acromioclavicular joint appears unremarkable. Limited visualization of the adjacent hemithorax is unremarkable. XR/XR shoulder LT min 2V* [id number] IMPRESSION: No fractures or dislocations of the left shoulder.
[2022-12-14 14:46] VITALS: BP 135/92; PULSE 79; O2SAT 93
--- NOTE | 2022-12-14 14:57 | ED_ITS ---
HPI - Extremity Problem General: Chief complaint: Extremity Injury, Upper Stated complaint: Left Shoulder pain Time Seen by Provider: 12/14/22 14:20 Source: patient Mode of arrival: ambulatory History of Present Illness: 72-year-old male who presents to the emergency room with complaint of left shoulder pain. Its worse when he moves it he does not have any associated chest pain shortness of breath diaphoresis nausea or vomiting. Going for some time. Does not recall any specific injury he has had he has been told in the past he has adhesive capsulitis he has tried various exercises at home to try to improve it. He is also been seeing his primary care doctor. Is relieved by hot showers and massage somewhat by anti-inflammatories. Additionally he has been rather depressed so he has not heard from his family he has some difficulty getting along with his daughter has not been able to get much help from the [place] where he is usually seen and wants to get established with a counselor of some sort. Onset (ago): month(s) Pain Consistency: constant Location: left (Shoulder) Radiation: none Relieving factors: nothing Exacerbating factors: nothing Associated symptoms: Deny arthralgias, chest pain, fever(s), myalgias, rash or short of breath Review of Systems Const: Denies: fever(s), chills, fatigue or malaise ENMT: Denies: throat pain, ear or mastoid pain, nasal discharge or nasal congestion Card: Denies: chest pain, palpitations or irregular heart rhythm Resp: Denies: dyspnea, productive cough or non-productive cough GI: Denies: abdominal pain, nausea, vomiting, hematemesis, coffee ground emesis, diarrhea, constipation, bloating, hematochezia or melena : Denies: flank pain, dysuria, urinary frequency or urinary urgency Skin/Breast: Denies: rash PFSH ED PFSH: Medical History Borderline personality disorder CHF (congestive heart failure) Peripheral Vascular Disease Varicose veins of bilateral lower extremities with other complications Surgical History History of back surgery S/P carpal tunnel release S/P cholecystectomy S/P foot surgery S/P routine circumcision Family History Mother Cancer Breast CA Father CAD (coronary artery disease) Myocardial infarct ID age 58 Diabetes Stroke Hypertension Social History Smoking and tobacco status: former smoker Physical Exam Const: GENERAL APPEARANCE: cooperative and comfortable ORIENTATION/CONSCIOUSNESS: Yes awake, Yes oriented to person, Yes oriented to place and Yes oriented to time HENMT: COMMON NORMALS: normocephalic, atraumatic and hearing grossly normal bilaterally HEAD & SCALP: normocephalic and atraumatic Resp: COMMON NORMALS: normal respiratory effort, No retractions, No use of accessory muscles and clear to auscultation bilaterally AUSCULTATION: clear to auscultation bilaterally Cardio: COMMON NORMALS: regular rate, regular rhythm and No murmurs present (Cardio) RATE: regular rate RHYTHM: regular rhythm GI: COMMON NORMALS: Soft to palpation and No hepatosplenomegaly present AUSCULTATION: Yes normoactive bowel sounds PALPATION: Yes Soft to palpation, No Tenderness to palpation present (GI), No Guarding due to palpation present (GI) and Yes No hepatosplenomegaly present Extremity: COMMON NORMALS: normal to inspection, capillary refill normal, no clubbing, cyanosis or edema, no calf tenderness and no pedal edema OTHER: Pain with abduction and extension and shoulder but is able to move through full range of motion passively. Neurovascularly intact. No obvious deformity. Neuro: SENSORIUM/ORIENTATION: Yes oriented to person, Yes oriented to place and Yes oriented to time Skin: COMMON NORMALS: no rashes or lesions noted GENERAL SKIN EXAM: no rashes or lesions noted Course Vital Signs: Vital signs: Vital Signs Temperature 97.4 F L 12/14/22 13:41 Pulse Rate 79 12/14/22 14:46 Respiratory Rate 16 12/14/22 13:41 Blood Pressure 135/92 12/14/22 14:46 Pulse Oximetry 93 12/14/22 14:46 Oxygen Delivery Me thod Room Air 12/14/22 13:41 MDM - Extremity (Nontraumatic) Medical Decision Making X-ray left shoulder unremarkable chest x-ray negative EKG does not show anything acute. We will get her set up to see Ortho, can use diclofenac as needed prior to that. Additionally we will set him up to see [facility] for the mental health concerns. Patient denies any suicidal homicidal ideation. Medical Records I reviewed the patient's medical records. Lab Data I reviewed the patient's lab results. Radiology Impressions Chest X-Ray 12/14/22 14:30 IMPRESSION: There are a few small vague indeterminate pulmonary nodules but most if not all are granulomatous... Shoulder X-Ray 12/14/22 14:41 IMPRESSION: No fractures or dislocations of the left shoulder. Discharge Plan Discharge Patient Disposition: Home Clinical Impression: Left shoulder pain, Depression Condition: Stable Prescriptions: New diclofenac sodium 75 mg tablet,delayed release (DR/EC) 75 mg PO Q12H PRN (Reason: pain) Qty: 20 0RF No Action (DME) [employer] Care Lotion See Rx Instructions .Route .MEDSUPPLY Qty: 1 0RF Rx Instructions: As directed dorzolamide-timolol 22.3-6.8 mg/mL drops 1 drop ophthalmic (eye) BID naproxen 250 mg tablet 250 mg PO BID PRN methocarbamol 750 mg tablet 1,500 mg PO Q8H PRN medical marijuana PO furosemide 40 mg tablet 120 mg PO DIRECTED Qty: 270 3RF Rx Instructions: 80mg (2 tabs) in AM and 40mg (1 tab) in PM metoprolol tartrate 25 mg tablet 25 mg PO BID Qty: 180 3RF potassium gluconate 600 mg (99 mg) tablet 600 mg PO DAILY cefuroxime axetil 500 mg tablet 500 mg PO BID 10 Days Qty: 20 0RF (DME) compr.stocking,knee,long,x-lrg Misc See Rx Instructions .ROUTE .MEDSUPPLY Qty: 2 0RF Rx Instructions: Zip up stockings ketoconazole 1 % Shampoo 1 applic TOPICAL EVERY OTHER DAY terbinafine HCl 1 % cream 1 applic topical BID Qty: 30 0RF Rx Instructions: rash on foot dexamethasone 4 mg tablet 4 mg PO DAILY Qty: 7 0RF Discharge Orders: Discharge ED (Routine); Ordered 12/14/22 Ordered By: Arturo Pelletier Referrals: Acacia Welch FNP [Primary Care Provider] - Patient Instructions: Opioid Safety, Pain Management Activity Restrictions/Additional Instructions: Case management make arrangements for you to see orthopedics and to be seen at behavioral health clinic. Coding Level of Care Code ED Tool Trouble Shooter for Janelle Ojeda
--- NOTE | 2022-12-15 08:06 | PC.SOCIAL ---
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 Original Note: Consults received to refer patient to [facility] and ortho; messages sent to both clinics. Clinics to contact patient with appts.
== END 2022-12-14 15:12 | disposition home or self-care (01) ==
PROVIDERS: Emergency Provider Family Medicine; PCP Nurse Practitioner
DX: M25.512 Pain in left shoulder (principal); F32.A Depression, unspecified; I50.9 Heart failure, unspecified; Z87.891 Personal history of nicotine dependence
CPT/HCPCS: 71045; 73030; 93005; 99285

== ENCOUNTER 2022-12-26 06:00 | Outpatient (RCR) | payer OTHER, SELFPAY | END 2023-01-25 23:59 | disposition home or self-care (01) | LOC: SPT 06:00 | PROVIDERS: PCP Nurse Practitioner; Visit Provider Nurse Practitioner | DX: M54.50 Low back pain, unspecified (principal) | CPT/HCPCS: 97110 ==

== ENCOUNTER 2023-01-05 09:41 | Outpatient (RCR) | payer OTHER, SELFPAY | END 2023-01-25 23:59 | disposition home or self-care (01) | LOC: SPT 09:41 | PROVIDERS: PCP Nurse Practitioner; Visit Provider Nurse Practitioner | DX: M25.512 Pain in left shoulder (principal) | CPT/HCPCS: 97110; 97161 ==

== ENCOUNTER 2023-01-19 12:46 | Outpatient (CLI) | payer OTHER, SELFPAY ==
--- NOTE | 2023-01-19 12:53 | US_ITS ---
WS: [id number] INDICATION: RIGHT inguinal hernia TECHNIQUE: Ultrasound RIGHT inguinal canal FINDINGS: Ultrasound RIGHT inguinal canal area of concern. No evidence of hernia or herniated bowel. Normal-appearing lymph nodes in the RIGHT groin with persistent fatty hilum. Largest measures 2.2 x 0 .5 x 1.5 CM. No other suspicious findings. US/US soft tissue/extremity [id number] IMPRESSION: 1. No evidence of inguinal hernia. 2. A few prominent lymph nodes with normal fatty hilum in this area.
== END 2023-01-19 12:47 | disposition home or self-care (01) ==
LOC: RAD 12:49
PROVIDERS: PCP Nurse Practitioner; Visit Provider Nurse Practitioner
DX: R10.31 Right lower quadrant pain (principal); K46.9 Unspecified abdominal hernia without obstruction or gangrene
CPT/HCPCS: 76882

== ENCOUNTER 2023-01-26 06:00 | Outpatient (RCR) | payer OTHER, SELFPAY | END 2023-02-09 23:59 | disposition home or self-care (01) | LOC: SPT 06:00 | PROVIDERS: PCP Nurse Practitioner; Visit Provider Nurse Practitioner | DX: M25.512 Pain in left shoulder (principal) | CPT/HCPCS: 97110 ==

== ENCOUNTER → 2023-02-03 09:56 | Outpatient (BNVA) | payer OTHER, SELFPAY | PROVIDERS: PCP Nurse Practitioner; Referring Provider Nurse Practitioner; Visit Provider Specialist | DX: M19.012 Primary osteoarthritis, left shoulder | CPT/HCPCS: 20610; 73030; 99204; J1100; J2795; J3301 ==

== ENCOUNTER 2023-02-05 11:10 | Inpatient (IN) | payer OTHER, SELFPAY ==
[2023-02-05] VITALS (8 sets, daily range): BP systolic 127–144; BP diastolic 78–103; PULSE 85–93; RESP 16–18; TEMP 36.5–36.8; O2SAT 91–96; BMI 28.0
--- NOTE | 2023-02-05 11:33 | XR_ITS ---
WS: [id number] XR hip RT 2-3V wo/w pel* [id number] REASON FOR EXAM: fall, pain FINDINGS: Minimally displaced intertrochanteric fracture which extends into the femoral neck to the cervical fe moral head junction. No displacement of the lesser trochanter. Acetabulum intact. Moderate osteoarthritis of the right hip. IMPRESSION: Interval enteric fracture of the right hip as above.
--- NOTE | 2023-02-05 11:34 | W.ED.FALL ---
HPI - Fall General: Chief Complaint: Fall Stated Complaint: had a fall at [facility] therapy Time Seen by Provider: 02/05/23 11:24 Source: patient Mode of arrival: wheelchair Limitations: no limitations History of Present Illness: 72yo male presents from physical therapy for evaluation of right hip pain following a stumble and fall. Patient reports that he has foot drop in his left foot and it tends to catch on different brandon. States that he was unable to catch his balance after he stumbled, causing him to fall onto his right side. He states he is not able to bear weight and has difficulty moving the right hip following the fall. Patient denies hitting his head, loss of consciousness, neck pain, back pain, use of blood thinners. Associated symptoms-after fall: Denies chest pain, headache(s) or neck pain Review of Systems Const: Denies: fever(s), chills or body aches Card: Denies: chest pain Resp: Denies: dyspnea Musc: Reports: extremity pain (right hip); Denies: neck pain or back pain Neuro: Denies: headache(s) PFSH ED PFSH: Medical History Borderline personality disorder CHF (congestive heart failure) Peripheral Vascular Disease Varicose veins of bilateral lower extremities with other complications Surgical History History of back surgery S/P carpal tunnel release S/P cholecystectomy S/P foot surgery S/P routine circumcision Family History Mother Cancer Breast CA Father CAD (coronary artery disease) Myocardial infarct [place] age 58 Diabetes Stroke Hypertension Social History Smoking and tobacco status: former smoker Physical Exam Const: COMMON NORMALS: no acute distress and patient oriented x3 GENERAL APPEARANCE: cooperative ORIENTATION/CONSCIOUSNESS: Yes awake OTHER: Patient is sitting upright on the side of the stretcher in no acute distress. He is able to give history with no difficulty. No family is at bedside HENMT: COMMON NORMALS: normocephalic, atraumatic and Normal external nose present HEAD & SCALP: normocephalic and atraumatic NOSE: Normal external nose present MOUTH: lip normal Eye: GENERAL EYE: appearance normal, both eyes and all related structures Neck/C-Spine: COMMON NORMALS: full ROM CERVICAL SPINE: No pain with cervical ROM and No Cervical spine tenderness Chest: CHEST: Yes Symmetrical chest wall rise Resp: COMMON NORMALS: normal respiratory effort EFFORT & INSPECTION: No respiratory distress Cardio: COMMON NORMALS: regular rate RATE: regular rate Back/Pelvis: COMMON NORMALS: thoraco-lumbar ROM normal THORACIC SPINE/UPPER BACK: No thoracic spinal tenderness LUMBAR SPINE/LOWER BACK: No lumbar spinal tenderness Extremity: RIGHT LOWER EXTREMITY: Yes hip joint Right hip: Yes palpation (tenderness to palpation) and Yes ROM (decreased ROM) OTHER: sensation intact right LE. +movement right toes with no difficulty Neuro: COMMON NORMALS: patient oriented x3 Psych: COMMON NORMALS: cooperative Skin: COMMON NORMALS: no rashes or lesions noted GENERAL SKIN EXAM: no rashes or lesions noted Course Consultations: Consultation #1: Dr Nieves, orthopedics. Discussed HPI and intertrochanter fracture. Recommends admission through medicine Time: 12:40 Consultation #2: Dr Foote agreeable to admission Time: 12:48 Vital Signs: Vital signs: Vital Signs Temperature 97.7 F 02/05/23 11:24 Pulse Rate 89 02/05/23 11:59 Respiratory Rate 16 02/05/23 11:59 Blood Pressure 144/103 02/05/23 11:59 Pulse Oximetry 91 02/05/23 11:59 Oxygen Delivery Me thod Room Air 02/05/23 11:59 MDM - Fall Medical Decision Making 72yo male here for evaluation of right hip pain following a stumble and fall that occurred in physical therapy this morning. Patient has a history of foot drop Which caused him to stumble while walking today. Patient denies hitting his head, loss consciousness, neck pain, back pain, use of blood thinners, any other concern at this time. Patient is nontoxic in appearance. Vital signs are stable. X-ray reveals a minimally displaced intertrochanteric fracture extending into the femoral neck. Discussed findings with patient. Advised that this is a surgical repair and he would need to be admitted. Patient reports he is a patient of Dr. Nieves. Consulted Dr. Mullen who recommends medicine to admit. Discussed with Dr. Foote, agreeable with admission. Medical Records I reviewed the patient's medical records. Discharge Plan Discharge Condition: Stable Prescriptions: No Action (DME) [employer] Care Lotion See Rx Instructions .Route .MEDSUPPLY Qty: 1 0RF Rx Instructions: As directed dorzolamide-timolol 22.3-6.8 mg/mL drops 1 drop ophthalmic (eye) BID furosemide 40 mg tablet 120 mg PO DIRECTED Qty: 270 3RF Rx Instructions: 80mg (2 tabs) in AM and 40mg (1 tab) in PM potassium gluconate 600 mg (99 mg) tablet 600 mg PO DAILY (DME) compr.stocking,knee,long,x-lrg Misc See Rx Instructions .ROUTE .MEDSUPPLY Qty: 2 0RF Rx Instructions: Zip up stockings ketoconazole 1 % Shampoo 1 applic TOPICAL EVERY OTHER DAY terbinafine HCl 1 % cream 1 applic topical BID Qty: 30 0RF Rx Instructions: rash on foot Referrals: Esvin Handley DO [Primary Care Provider] - Coding Level of Care Code ED Pt Skilled for Chg Rusty
--- NOTE | 2023-02-05 12:44 | XR_ITS ---
WS: [id number] XR chest 1V portable [id number] REASON FOR EXAM: surgical clearance FINDINGS: The chest appears unchanged compared to 12/14/2022. Moderate tortuosity and ectasia of the thoracic aorta. The heart is at the upper limits of normal in size. Calcified granulomas disease in both hemithoraces. Moderate elevation of the right hemidiaphragm. No acute pulmonary parenchymal or pleural abnormality is identified. Moderate osteoarthritis in both shoulder joints. Significant degenerative spondylosis in the mid and lower thoracic spine. IMPRESSION: Stable chest with no acute abnormality.
[2023-02-05] MEDS: acetaminophen 1,000 MG/100 ML PIGGYBACK 400 MG IV (13:11)
[2023-02-05] MEDS: morphine 4 mg/mL SDV 1 mL IVP (13:11)
[2023-02-05 13:25] LABS: Basophils % 0.3 %; Eosinophils % 0.3 %; Hematocrit 49.1 % (42.0-52.0); Hemoglobin 15.7 g/dL (11.7-16.6); Lymphocytes # 0.8 10^3/uL (0.8-4.8); Lymphocytes % 7.1 %; Mean Corpuscular Hemoglobin 29.7 pg (28.0-34.0); Mean Corpuscular Volume 92.8 fl (80-94); Mean Platelet Volume 11.2 fL (7.4-10.4); Monocytes # 0.9 10^3/uL (0.2-0.9); Monocytes % 7.4 %; Neutrophils # 9.63 10^3/uL (1.8-7.7); Neutrophils % 84.2 %; Nucleated Red Blood Cells % 0 %; Platelet Count 212 10^3/cmm (130-400); Red Blood Count 5.29 10^6/uL (4.1-5.3); Red Cell Distribution Width 13.3 % (12.1-15.1); White Blood Count 11.4 10^3/uL (4.0-10.0)
[2023-02-05 13:38] LABS: Slide Review Slide Review Perform
[2023-02-05 13:46] LABS: Alanine Aminotransferase 16 U/L (0-41); Albumin Level 4.3 g/dL (3.5-5.2); Alkaline Phosphatase 106 U/L (40-130); Aspartate Amino Transferase 21 U/L (0-40); Blood Urea Nitrogen 14 mg/dL (8-23); Calcium 9.3 mg/dL (8.5-10.5); Carbon Dioxide 26 mmol/L (22-29); Chloride 97 mmol/L (98-107); Globulin 2.8 g/dL (1.3-4.6); Glucose 109 mg/dL (65-115); Osmolality Calculated 283 mOsm/kg (285-295); Sodium 136 mmol/L (136-145); Total Bilirubin 0.7 mg/dL (0.15-1.2); Total Protein 7.1 g/dL (6.6-8.7)
[2023-02-05 14:02] LABS: Anion Gap 16.6 (5-19); Potassium 3.6 mmol/L (3.5-5.1)
--- NOTE | 2023-02-05 15:24 | PM.HP ---
Providers/Chief Complaint Admitting Physician: Osiris Foote MD Primary Care Provider: Esvin Handley DO Chief Complaint: had a fall at [facility] therapy History of Present Illness Ac Paz is a 72 year old male with a past medical history of peripheral vascular disease, lymphedema, heart failure with preserved ejection fraction who was undergoing physical therapy earlier today and tripped and fell. He has trouble bearing weight and difficulty moving his right hip since then. He was found to have a minimally displaced intertrochanteric fracture extending into the femoral neck. Orthopedic service has been consulted. Denies any current chest pain dyspnea palpitations or syncope. Review of Systems General: Reports: 10 or more systems reviewed and unremarkable except in HPI and below Const: Denies: fever(s), chills or body aches Eyes: Denies: change in vision, blurry vision or photophobia ENMT: Reports: hoarseness; Denies: throat pain, enlarged tonsils, odynophagia or nasal congestion Card: Denies: chest pain, palpitations, irregular heart rhythm, edema, swelling of feet/ankles, lightheadedness, pre-syncope, dyspnea on exertion or orthopnea Resp: Denies: dyspnea, productive cough, non-productive cough, wheezing, stridor, pain on inspiration, change in phlegm color, hemoptysis or chest congestion GI: Denies: abdominal pain, nausea, vomiting, hematemesis, coffee ground emesis, dysphagia, heartburn, diarrhea, constipation, GI cramping, change in stool character, hematochezia or melena : Denies: flank pain, dysuria, urinary frequency, urinary urgency, urinary hesitancy or hematuria Musc: Denies: neck pain, back pain, extremity pain, joint swelling, joint warmth or deformity Neuro: Denies: headache(s), numbness in extremities, weakness in extremities, sensory changes, difficulty walking, frequent falls, dizziness, vertigo, behavioral changes, Slurred speech present or seizure-like activity Psych: Denies: anxiety, depression, suicidal ideation or homicidal ideation Endo: Denies: polyuria, polydipsia, tired all the time, cold intolerance or hot flashes Abel/Lymph: Denies: easy bruising or easy bleeding Medications/Allergies Home Medications Medication Instructions Recorded Confirmed Last Taken Type dorzolamide 22.3 mg-timolol 6.8 1 drop ophthalmic (eye) BID 11/01/19 02/05/23 02/04/23 History mg/mL eye drops ketoconazole 1 % shampoo 1 applic topical EVERY OTHER DAY 03/01/20 02/05/23 Unknown History compr.stocking,knee,long,x-lrg #2 ea 04/16/20 02/05/23 Unknown Rx [employer] Care Lotion #1 ea 09/18/20 02/05/23 Unknown Rx furosemide 40 mg tablet 120 mg PO DIRECTED #270 tabs 03/23/22 02/05/23 02/04/23 Rx potassium gluconate 600 mg (99 mg) 600 mg PO DAILY 05/20/22 02/05/23 02/04/23 History tablet terbinafine HCl 1 % topical cream 1 applic topical BID #30 grams 07/10/22 02/05/23 02/04/23 Rx Allergies Allergy/AdvReac Type Severity Reaction Status Date / Time No Known Allergies Allergy Verified 02/03/23 09:59 PFSH Acute PFSH: Medical History Borderline personality disorder CHF (congestive heart failure) Peripheral Vascular Disease Varicose veins of bilateral lower extremities with other complications Surgical History History of back surgery S/P carpal tunnel release S/P cholecystectomy S/P foot surgery S/P routine circumcision Family History Mother Cancer Breast CA Father CAD (coronary artery disease) Myocardial infarct [place] age 58 Diabetes Stroke Hypertension Social History Smoking and tobacco status: former smoker Vitals/I&O/Wt Last Vital Signs Temp 97.7 F 02/05/23 11:24 Pulse 89 02/05/23 11:59 Resp 16 02/05/23 11:59 BP 144/103 02/05/23 11:59 Pulse Ox 91 02/05/23 11:59 O2 Del Method Room Air 02/05/23 14:15 02/05/23 02/05/23 02/05/23 06:59 14:59 22:59 Intake Total 100 / 100 Balance 100 / 100 Weight last 48 hrs Weight 99.337 kg Physical Exam Narrative: General: No acute distress, AO x3 HEENT: PERRLA, pupils bilaterally equal and reactive, pallors not present Chest: Normal vesicular breath sounds, no added sounds, equal good air entry bilaterally CVS: S1-S2 regular, no murmurs, no tachycardia, no gallops, no rubs Abdomen: Soft, nontender, no organomegaly, bowel sounds present Neuro: No focal deficits, no facial deformity, AO x3, power 5/5 in all limbs Data 02/05/23 13:05 02/05/23 13:05 A&P Assessment and plan (1) Lymphedema of both lower extremities: (2) CHF (congestive heart failure): (3) Intertrochanteric fracture: Plan 72-year-old male with comorbidities listed as above presenting to the hospital today for intertrochanteric fracture that he suffered after a mechanical fall due to his known foot drop Bedrest for now Orthopedics has been consulted from the emergency room N.p.o. after midnight for anticipated surgery Denies any current chest pain dyspnea or palpitations Continue home dose of Lasix at 40 mg TID currently he is euvolemic, lymphedema is under good control Attestations Medical Necessity Statement*: Anticipate greater than 2 midnight admission for intertrochanteric fracture, surgical fixation Coding Level of Care Code Acute Code for Chg Fwd Moderate MDM includes number and complexity of problems actively addressed during encounter, amount and/or complexity of data reviewed/ordered and described risk of complication, morbidity or mortality of management as documented Diagnoses Lymphedema of both lower extremities I89.0 CHF (congestive heart failure) I50.9 Intertrochanteric fracture S72.143A
--- NOTE | 2023-02-05 15:40 | PC.NURSE ---
Patient arrived to unit via stretcher, no c/o pain or discomfort while being still but has mild discomfort with movement. patient has left food drop foot which he sees PT for and was reasoning of fall per patient. Patient uses a cane at home but has not been using it recently. VSS, AAOx4, currently on bedrest. Room clean and clutter free with call light within reach. Will continue to monitor.
[2023-02-05] MEDS: enoxaparin 40 mg/0.4 mL Syringe SUBCUT (16:26)
[2023-02-05] MEDS: oxyCODONE-APAP 5-325 mg Tablet 1 TAB PO ×2 (17:46→23:05)
--- NOTE | 2023-02-05 18:00 | PM.CONSULT ---
Providers/Reason For Consult Consulting Physician/Specialty*: Melvina Nieves MD Reason for Consult*: Right intertrochanteric hip fracture Attending Physician: Osiris Foote MD Primary Care Provider: Esvin Handley DO History of Present Illness History of Present Illness Ac Paz is a 72 year old male who was in his usual state of health when he stumbled while leaving physical therapy secondary to his left foot drop. The patient notes the foot tends to catch on different brandon. He was unable to maintain his balance when he stumbled and fell onto his right side. He was not able to weight-bear and went to the emergency department where he was found to have a right intertrochanteric minimally displaced hip fracture. Review of Systems General: Reports: 10 or more systems reviewed and unremarkable except in HPI and below Const: Denies: fever(s), chills or body aches Eyes: Denies: change in vision, blurry vision or photophobia ENMT: Reports: hoarseness; Denies: throat pain, enlarged tonsils, odynophagia or nasal congestion Card: Denies: chest pain, palpitations, irregular heart rhythm, edema, swelling of feet/ankles, lightheadedness, pre-syncope, dyspnea on exertion or orthopnea Resp: Denies: dyspnea, productive cough, non-productive cough, wheezing, stridor, pain on inspiration, change in phlegm color, hemoptysis or chest congestion GI: Denies: abdominal pain, nausea, vomiting, hematemesis, coffee ground emesis, dysphagia, heartburn, diarrhea, constipation, GI cramping, change in stool character, hematochezia or melena : Denies: flank pain, dysuria, urinary frequency, urinary urgency, urinary hesitancy or hematuria Musc: Denies: neck pain, back pain, extremity pain, joint swelling, joint warmth or deformity Neuro: Denies: headache(s), numbness in extremities, weakness in extremities, sensory changes, difficulty walking, frequent falls, dizziness, vertigo, behavioral changes, Slurred speech present or seizure-like activity Psych: Denies: anxiety, depression, suicidal ideation or homicidal ideation Endo: Denies: polyuria, polydipsia, tired all the time, cold intolerance or hot flashes Abel/Lymph: Denies: easy bruising or easy bleeding Medications/Allergies Home Medications Medication Instructions Recorded Confirmed Last Taken Type dorzolamide 22.3 mg-timolol 6.8 1 drop ophthalmic (eye) BID 11/01/19 02/05/23 02/04/23 History mg/mL eye drops ketoconazole 1 % shampoo 1 applic topical EVERY OTHER DAY 03/01/20 02/05/23 Unknown History compr.stocking,knee,long,x-lrg #2 ea 04/16/20 02/05/23 Unknown Rx Amerigel Care Lotion #1 ea 09/18/20 02/05/23 Unknown Rx furosemide 40 mg tablet 120 mg PO DIRECTED #270 tabs 03/23/22 02/05/23 02/04/23 Rx potassium gluconate 600 mg (99 mg) 600 mg PO DAILY 05/20/22 02/05/23 02/04/23 History tablet terbinafine HCl 1 % topical cream 1 applic topical BID #30 grams 07/10/22 02/05/23 02/04/23 Rx Allergies Allergy/AdvReac Type Severity Reaction Status Date / Time No Known Allergies Allergy Verified 02/03/23 09:59 Current Medications Generic Name Dose Route Start Last Admin Trade Name Freq PRN Reason Stop Dose Admin Enoxaparin Sodium 40 mg 02/05/23 15:37 02/05/23 16:26 Enoxaparin 40 Mg/0.4 Ml Syringe SUBCUT 40 mg Q24H FABRICIO Administration Oxycodone/Acetaminophen 1 tab 02/05/23 15:37 02/05/23 17:46 Oxycodone-Apap 5-325 Mg Tablet PO 1 tab Q4H PRN Administration SEVERE PAIN PFSH Acute PFSH: Medical History Borderline personality disorder CHF (congestive heart failure) Peripheral Vascular Disease Varicose veins of bilateral lower extremities with other complications Surgical History History of back surgery S/P carpal tunnel release S/P cholecystectomy S/P foot surgery S/P routine circumcision Family History Mother Cancer Breast CA Father CAD (coronary artery disease) Myocardial infarct OR age 58 Diabetes Stroke Hypertension Social History Smoking and tobacco status: former smoker Dietary Habits: Current diet type/program: regular Vitals/I&O/Wt Last Vital Signs Temp 98.3 F 02/05/23 15:57 Pulse 86 02/05/23 15:57 Resp 18 02/05/23 17:46 BP 127/78 02/05/23 15:57 Pulse Ox 92 02/05/23 15:57 O2 Del Method Room Air 02/05/23 15:57 02/05/23 02/05/23 02/05/23 06:59 14:59 22:59 Intake Total 100 / 100 Balance 100 / 100 Weight last 48 hrs Weight 219 lb Physical Exam Const: COMMON NORMALS: no acute distress, average body habitus, patient oriented x3, no limitations, healthy appearing, alert and well nourished GENERAL APPEARANCE: cooperative; not anxious and not combative ORIENTATION/CONSCIOUSNESS: Yes awake, Yes oriented to person, Yes oriented to place and Yes oriented to time HENMT: COMMON NORMALS: normocephalic and atraumatic HEAD & SCALP: normocephalic and atraumatic Eye: GENERAL EYE: appearance normal, both eyes and all related structures EYELID: eyelids normal Chest: COMMONS NORMALS: normal inspection of the chest Resp: COMMON NORMALS: normal respiratory effort EFFORT & INSPECTION: Yes able to speak in complete sentences and Yes symmetric chest movement Extremity: RIGHT LOWER EXTREMITY: Yes hip joint (No significant swelling or ecchymosis) Right hip: Yes palpation (Tender to palpate patient), Yes ROM (Not evaluated), Yes neurovascular exam (Intact distally) and Yes other (Lymphedema bilateral lower extremities with erythematous discoloration) Neuro: COMMON NORMALS: patient oriented x3 SENSORIUM/ORIENTATION: Yes alert, Yes oriented to person, Yes oriented to place and Yes oriented to time SPEECH: speech normal GAIT: Yes Normal gait present Psych: ATTITUDE: Yes calm and Yes engaged ACTIVITY/MOTOR BEHAVIOR: Yes appropriate eye contact ATTENTION/CONCENTRATION: Yes attention grossly intact MEMORY/COGNITION: Yes memory grossly intact Skin: COMMON NORMALS: no rashes or lesions noted and turgor normal; negative for no jaundice GENERAL SKIN EXAM: no rashes or lesions noted, turgor normal and no jaundice Data 02/06/23 04:07 02/06/23 04:07 A&P Assessment and plan (1) Closed intertrochanteric fracture of right hip: Patient was admitted with a minimally displaced comminuted right intertrochanteric hip fracture. This occurred as he was participating in physical therapy and caught his foot. He is admitted to the medical service for optimization. Surgical intervention is planned for 10 AM tomorrow. Risks and complications as well as the surgical procedure that is planned is discussed with the patient. Consents will be signed. Coding Level of Care Code Acute Code for [facility] Diagnoses Closed intertrochanteric fracture of right hip S72.141A
[2023-02-05] MEDS: FUROsemide 40 mg Tablet PO (18:06)
[2023-02-06] VITALS (31 sets, daily range): BP systolic 115–193; BP diastolic 75–126; PULSE 76–109; RESP 16–20; TEMP 36.2–37.1; O2SAT 91–98
--- NOTE | 2023-02-06 | XR_ITS ---
WS: [id number] C-ARM RIGHT HIP HISTORY: SURGICAL PROCEDURE COMPARISON: 02/05/2023 Right hip: Interval fixation gamma nail and short intramedullary jimmie femoral neck fracture. Fracture in good position and alignment. IMPRESSION: 1. Intraoperative fixation right femoral neck fracture. 2. Fracture good position and alignment.
[2023-02-06] MEDS: morphine 4 mg/mL SDV 1 mL 2 MG IVP ×3 (01:18→16:25)
[2023-02-06] MEDS: oxyCODONE-APAP 5-325 mg Tablet 1 TAB PO (04:55)
[2023-02-06 04:59] LABS: Basophils % 0.2 %; Eosinophils % 0.2 %; Lymphocytes # 0.9 10^3/uL (0.8-4.8); Lymphocytes % 10.8 %; Mean Corpuscular HGB Conc 31.8 g/dL (30.0-36.0); Mean Corpuscular Hemoglobin 29.2 pg (28.0-34.0); Mean Corpuscular Volume 91.9 fl (80-94); Mean Platelet Volume 10.6 fL (7.4-10.4); Monocytes % 12.4 %; Neutrophils # 6.12 10^3/uL (1.8-7.7); Neutrophils % 75.9 %; Nucleated Red Blood Cells % 0 %; Platelet Count 195 10^3/cmm (130-400); Red Blood Count 4.79 10^6/uL (4.1-5.3); Red Cell Distribution Width 13.2 % (12.1-15.1); White Blood Count 8.1 10^3/uL (4.0-10.0)
--- NOTE | 2023-02-06 05:02 | PC.NURSE ---
patient refuses scd's despite education on importance of device. will continue to monitor.
[2023-02-06 05:25] LABS: Alanine Aminotransferase 14 U/L (0-41); Albumin Level 3.8 g/dL (3.5-5.2); Alkaline Phosphatase 87 U/L (40-130); Anion Gap 12.8 (5-19); Aspartate Amino Transferase 18 U/L (0-40); Blood Urea Nitrogen 13 mg/dL (8-23); Calcium 8.7 mg/dL (8.5-10.5); Carbon Dioxide 29 mmol/L (22-29); Chloride 100 mmol/L (98-107); Globulin 2.5 g/dL (1.3-4.6); Glucose 110 mg/dL (65-115); Magnesium 2.2 mg/dL (1.7-2.3); Osmolality Calculated 287 mOsm/kg (285-295); Potassium 3.8 mmol/L (3.5-5.1); Sodium 138 mmol/L (136-145); Total Bilirubin 1.1 mg/dL (0.15-1.2); Total Protein 6.3 g/dL (6.6-8.7)
--- NOTE | 2023-02-06 09:45 | P.ANESASSM_ITS ---
Pre-Anesthetic Assessment Height/Weight: Height 1.88 m Weight 99.337 kg Temp Pulse Resp BP Pulse Ox O2 Del Method 97.9 F 79 18 155/88 93 Room Air 02/06/23 07:35 02/06/23 07:35 02/06/23 07:35 02/06/23 07:35 02/06/23 08:00 02/06/23 08:00 Operation Date: 02/06/23 10:00 Proposed Procedures p Trochanteric Femoral Nail(Right) - Melvina Nieves MD Familial anesthetic complications: none Was Beta Kristen taken within 24 hours: N/A Was Clonidine taken within 24 hours: N/A Last intake: Intake Last Liquid Date 02/05/23 Last Liquid Time 23:00 Last Solid Date 02/05/23 Last Solid Time 16:00 Social No alcohol and No tobacco Exam alert, oriented x 3, clear to auscultation bilaterally and regular rate & rhythm Airway Mallampati: Class II Dentition: full CV/HEM Congestive Heart Failure, Hypertension and Peripheral Vascular Disease Anesthetic Plan ASA status: 3 Anesthesia: General Risk of > 500 ml blood loss (7ml/kg in children): No Medications/Allergies Home Medications Medication Instructions Recorded Confirmed Last Taken Type dorzolamide 22.3 mg-timolol 6.8 1 drop ophthalmic (eye) BID 11/01/19 02/05/23 02/04/23 History mg/mL eye drops ketoconazole 1 % shampoo 1 applic topical EVERY OTHER DAY 03/01/20 02/05/23 Unknown History compr.stocking,knee,long,x-lrg #2 ea 04/16/20 02/05/23 Unknown Rx Amerigel Care Lotion #1 ea 09/18/20 02/05/23 Unknown Rx furosemide 40 mg tablet 120 mg PO DIRECTED #270 tabs 03/23/22 02/05/23 02/04/23 Rx potassium gluconate 600 mg (99 mg) 600 mg PO DAILY 05/20/22 02/05/23 02/04/23 History tablet terbinafine HCl 1 % topical cream 1 applic topical BID #30 grams 07/10/22 0 02/05/23 02/04/23 Rx Allergies Allergy/AdvReac Type Severity Reaction Status Date / Time No Known Allergies Allergy Verified 02/03/23 09:59 Current Medications Generic Name Dose Route Start Last Admin Trade Name Martha PRN Reason Stop Dose Admin Enoxaparin Sodium 40 mg 02/05/23 15:37 02/05/23 16:26 Enoxaparin 40 Mg/0.4 Ml Syringe SUBCUT 40 mg Q24H FABRICIO Administration Morphine Sulfate 2 mg 02/05/23 15:37 02/06/23 06:49 Morphine 4 Mg/Ml Sdv 1 Ml IVP 2 mg Q4H PRN Administration SEVERE PAIN Oxycodone/Acetaminophen 1 tab 02/05/23 15:37 02/06/23 04:55 Oxycodone-Apap 5-325 Mg Tablet PO 1 tab Q4H PRN Administration SEVERE PAIN PFSH Anesthesia Medical History Borderline personality disorder CHF (congestive heart failure) Peripheral Vascular Disease Varicose veins of bilateral lower extremities with other complications Surgical History History of back surgery S/P carpal tunnel release S/P cholecystectomy S/P foot surgery S/P routine circumcision Family History Mother Cancer Breast CA Father CAD (coronary artery disease) Myocardial infarct [place] age 58 Diabetes Stroke Hypertension Social History Smoking and tobacco status: former smoker Data Anesthesia 02/06/23 04:07 02/06/23 04:07 Short CBC 02/05/23 02/06/23 Range/Units 13:05 04:07 WBC 11.4 H 8.1 (4.0-10.0) 10^3/uL Hgb 15.7 14.0 (11.7-16.6) g/dL Hct 49.1 44.0 (42.0-52.0) % MCV 92.8 91.9 (80-94) fl Plt Count 212 195 (130-400) 10^3/cmm Neut % (Auto) 84.2 75.9 % Neut # (Auto) 9.63 H 6.12 (1.8-7.7) 10^3/uL BMP 02/05/23 02/06/23 13:05 04:07 Sodium 136 138 Potassium 3.6 3.8 Chloride 97 L 100 Carbon Dioxide 26 29 BUN 14 13 Creatinine 0.9 0.8 Glucose 109 110 Calcium 9.3 8.7 Liver Function 02/05/23 02/06/23 Range/Units 13:05 04:07 Total Bilirubin 0.7 1.1 (0.15-1.2) mg/dL AST 21 18 (0-40) U/L ALT 16 14 (0-41) U/L Alkaline Phosphatase 106 87 (40-130) U/L Albumin 4.3 3.8 (3.5-5.2) g/dL Cardiac Studies: Echocardiogram 02/11/21
--- NOTE | 2023-02-06 10:01 | PM.MISC ---
Miscellaneous Note Purpose of Documentation: Day of surgery preop Note: Patient's leg is marked in the preop holding area. Questions were answered further. Consents were signed.
[2023-02-06] MEDS: ceFAZolin 2,000 MG in sodium chloride 0.9% (plus) 50 ML 100 MG IV ×2 (10:02→17:56)
[2023-02-06] MEDS: sodium chloride 0.9% 1,000 ML 30 ML IV (10:17)
[2023-02-06] MEDS: ceFAZolin 1,000 mg SDV 1000 MG IRRIGATION (10:45)
--- NOTE | 2023-02-06 10:54 | SUR.PREOP ---
0933 Pt refused Tirso Hose even after education on the importance of them in the operative and post operative setting. Stated just stop talking about it . Pt also refused Gabapentin and Celebrex after this nurse explaining the importance of those medications.
[2023-02-06] MEDS: BUPivacaine 0.5% INJ 30 mL INJECTION (11:20)
--- NOTE | 2023-02-06 11:59 | P.OP_ITS ---
Operative Report Date of procedure: February 06, 2023 Pre-op diagnosis: Right intertrochanteric hip fracture with slight comminution Post-op diagnosis: Right intertrochanteric hip fracture with slight comminution Post-op findings: Slight comminution with right intertrochanteric hip fracture Procedure done: Open reduction internal fixation right intertrochanteric hip fracture with slight angulation Implants: The Morton trochanteric nail system with a size 11 x 180 mm x 125 degree tr ochanteric gamma 3 nail, a size 10.5 mm x 110 mm lag screw with a distal screw size 5 mm x 42.5 mm Specimens removed/disposition: None Surgeon: Melvina Nieves Outcomes Specialist: None Anesthesia: General (General, LMA, ASA 3) Estimated blood loss (mL): 10 IV fluids (mL): 1,000 Urine output (mL): 150 Complications: None Findings: Slightly comminuted right intratrochanteric hip fracture in anatomic position Condition: stable Disposition: PACU (Then return to floor for postoperative rehabilitation and pain management) Brief History: Ac Paz is a 72 year old male who was in his usual state of health when he stumbled while leaving physical therapy secondary to his left foot drop.? The patient notes the foot tends to catch on different brandon.? He was unable to maintain his balance when he stumbled and fell onto his right side.? He was not able to weight-bear and went to the emergency department where he was found to have a right intertrochanteric minimally displaced hip fracture. He was seen and evaluated in his room. Consent was obtained and the patient was scheduled for operative intervention in the form of a trochanteric nail. Risks and complications were discussed with him in detail. Procedure: Patient is brought to the operating theater. After undergoing adequate general anesthesia with LMA, ASA 3, the patient was transferred to the fracture table, positioned on the table and fluoroscopic guidance obtained throughout the surgical procedure. Prior to the commencement of the surgical procedure, a surgical pause was performed. At the time of the surgical pause, we confirmed the site and side of surgery as well as preoperative surgical markings and appropriate and timely administration of IV antibiotics, Ancef 2 g. Availability of equipment was also confirmed. Fluoroscopy was used to confirm the fracture was appropriately reduced in both AP and lateral planes. An incision was then made slightly above the greater trochanter to allow access to the greater trochanter. An awl was used to enter the greater trochanter and a guidewire was subsequently placed. Once the guidewire was confirmed to be in appropriate position in AP and lateral planes, reaming was accomplished over this to allow for the proximal diameter of the nail.? Guidewire was then removed, and an 11 mm x 180 mm x 125 degree gamma 3 trochanteric nail was placed into appropriate position with positioning being confirmed in AP and lateral planes on the x-ray. It passed without difficulty. Guidewire was then passed through the jigging system into the femoral head. We wanted to be center or slightly inferior and posterior to center. Guidewire was placed into appropriate position. Once the guidewire was in appropriate position and this position was confirmed by x-ray.? The guidewire was measured, and we chose a 110 mm lag screw.? We reamed to allow for the lag screw to be placed.? The 110 mm lag screw was then passed into the femoral head through the trochanteric nail. This was passed uneventfully and again position was confirmed in AP and lateral planes. Compression was obtained under fluoroscopic guidance.? The set screw was then placed in position, tightened completely, and subsequently backed off 1/8th turn. The construct was left in position and attention was directed distally. Cannulas were again used to determine appropriate placement for the distal screw. This was placed in position without difficulty.? Screw length was measured off of the drill. The appropriate length screw was then obtained and placed in position without difficulty. Once the screw was in position, we confirmed appropriate placement of the components, and we removed the jigging system. Attention was then directed to closure. The hip was copiously irrigated with normal saline with antibiotics. Following this it was dried and closed. Tensor fascia anatoly was closed proximally with 0 Vicryl in an interrupted fashion. Subcutaneous tissues and skin were injected with bupivacaine half percent plain. Subcutaneous tissues were closed with 2-0 Monocryl, and the skin was closed with a continuous 3-0 Monocryl subcuticular stitch. This was then covered with Dermabond, Steri-Strips, and OpSite. The patient was removed from the fracture table and returned to recovery in satisfactory condition. The patient will be discharged to the floor for postoperative rehabilitation and pain management. There were no specimens obtained. Related Problem List Diagnoses (1) Closed intertrochanteric fracture of right hip:
[2023-02-06] MEDS: labetalol 5 mg/mL SDV 20mL 100 MG (12:10)
[2023-02-06] MEDS: oxyCODONE 5 mg IR Tab/Cap PO ×2 (15:04→20:45)
[2023-02-06] MEDS: FUROsemide 40 mg Tablet PO ×2 (15:04→20:45)
[2023-02-06] MEDS: enoxaparin 40 mg/0.4 mL Syringe SUBCUT (15:05)
--- NOTE | 2023-02-06 15:52 | PM.PN ---
Subjective Subjective: Patient underwent ORIF this morning. Tolerated the procedure well. Has some postoperative pain currently which has not been controlled by p.o. oxycodone. Added IV morphine as needed and one-time IV Tylenol. He is also complaining of pain at the right knee, no obvious swelling encountered in this area. May be related to positioning versus the fall that he suffered yesterday. Medications: Reviewed: Yes Vitals/I&O/Wt Last Vital Signs Temp 97.8 F 02/06/23 13:40 Pulse 87 02/06/23 14:02 Resp 17 02/06/23 15:04 BP 147/89 02/06/23 13:40 Pulse Ox 91 02/06/23 13:40 O2 Del Method Nasal Cannula 02/06/23 12:30 O2 Flow Rate 2 02/06/23 12:30 02/06/23 02/06/23 02/06/23 06:59 14:59 22:59 Intake Total 1450 / 1450 Output Total 875 / 1575 310 / 310 Balance -875 / -1475 1140 / 1140 Weight last 48 hrs Weight 99.337 kg Physical Exam Narrative: General: No acute distress, AO x3 HEENT: PERRLA, pupils bilaterally equal and reactive, pallors not present Chest: Normal vesicular breath sounds, no added sounds, equal good air entry bilaterally CVS: S1-S2 regular, no murmurs, no tachycardia, no gallops, no rubs Abdomen: Soft, nontender, no organomegaly, bowel sounds present Neuro: No focal deficits, no facial deformity, AO x3, power 5/5 in all limbs Urinary Catheter Management: Escalante Latex: Cath Placed During This Visit: yes Urinary Catheter Date of Insertion: 02/06/23 Urinary Catheter Time of Insertion: 10:20 Data 02/06/23 04:07 02/06/23 04:07 A&P Assessment and plan (1) Lymphedema of both lower extremities: (2) CHF (congestive heart failure): (3) Intertrochanteric fracture: Plan 72-year-old male admitted for intertrochanteric fracture that he suffered after a mechanical fall due to his known foot drop s/p ORIF today morning currently complaining of pain not controlled with po oxycodone Add iv morphine 2 mg every 4 hrs prn, lidocaine patch over right knee, no obvious swelling encounterted at this site currently Wound care per Orthopedics Denies any current chest pain dyspnea or palpitations Continue home dose of Lasix at 40 mg TID currently he is euvolemic, lymphedema is under good control Attestations Medical Necessity Statement*: continued inpatient management for post op monitoring and care, iv pain control, optimize pain management Coding Level of Care Code Acute Code for [facility] Fwd Moderate MDM includes number and complexity of problems actively addressed during encounter, amount and/or complexity of data reviewed/ordered and described risk of complication, morbidity or mortality of management as documented Diagnoses Lymphedema of both lower extremities I89.0 CHF (congestive heart failure) I50.9 Intertrochanteric fracture S72.143A
[2023-02-06] MEDS: lidocaine 5% Patch 1 PATCH TOPICAL (16:23)
[2023-02-06] MEDS: acetaminophen 1,000 MG/100 ML PIGGYBACK 400 MG IV (16:24)
--- NOTE | 2023-02-06 16:49 | PM.MISC ---
Miscellaneous Note Purpose of Documentation: Postoperative visit Note: Patient seemed in better spirits and less pain since his surgery. He is neurologically intact.
[2023-02-06] MEDS: sennosides-docusate Tablet 2 TAB PO (17:57)
[2023-02-07] VITALS (14 sets, daily range): BP systolic 111–129; BP diastolic 71–80; PULSE 82–100; RESP 16–18; TEMP 36.4–36.9; O2SAT 92–98
[2023-02-07] MEDS: ceFAZolin 2,000 MG in sodium chloride 0.9% (plus) 50 ML 100 MG IV ×2 (01:55→09:54)
[2023-02-07] MEDS: oxyCODONE 5 mg IR Tab/Cap PO ×5 (01:55→23:52)
[2023-02-07 06:10] LABS: Basophils % 0.2 %; Eosinophils % 0.2 %; Hematocrit 40.6 % (42.0-52.0); Hemoglobin 12.7 g/dL (11.7-16.6); Lymphocytes # 0.6 10^3/uL (0.8-4.8); Mean Corpuscular HGB Conc 31.3 g/dL (30.0-36.0); Mean Corpuscular Hemoglobin 29.7 pg (28.0-34.0); Mean Corpuscular Volume 95.1 fl (80-94); Mean Platelet Volume 10.6 fL (7.4-10.4); Monocytes # 1.1 10^3/uL (0.2-0.9); Monocytes % 10.7 %; Neutrophils # 8.23 10^3/uL (1.8-7.7); Neutrophils % 82.4 %; Nucleated Red Blood Cells % 0 %; Platelet Count 197 10^3/cmm (130-400); Red Blood Count 4.27 10^6/uL (4.1-5.3); Red Cell Distribution Width 13.3 % (12.1-15.1)
[2023-02-07 06:37] LABS: Alanine Aminotransferase 14 U/L (0-41); Albumin Level 3.6 g/dL (3.5-5.2); Alkaline Phosphatase 80 U/L (40-130); Anion Gap 13.7 (5-19); Aspartate Amino Transferase 19 U/L (0-40); Blood Urea Nitrogen 11 mg/dL (8-23); Calcium 8.5 mg/dL (8.5-10.5); Carbon Dioxide 31 mmol/L (22-29); Chloride 98 mmol/L (98-107); Globulin 2.5 g/dL (1.3-4.6); Glucose 112 mg/dL (65-115); Osmolality Calculated 288 mOsm/kg (285-295); Potassium 3.7 mmol/L (3.5-5.1); Sodium 139 mmol/L (136-145); Total Bilirubin 0.9 mg/dL (0.15-1.2); Total Protein 6.1 g/dL (6.6-8.7)
[2023-02-07] MEDS: sennosides-docusate Tablet 2 TAB PO (07:58)
[2023-02-07] MEDS: FUROsemide 40 mg Tablet PO ×3 (07:58→20:41)
--- NOTE | 2023-02-07 15:20 | PM.PN ---
Subjective Subjective: No new complaints today. Patient is feeling well overall. Knee pain is resolved. Feels well overall. Awaiting appropriate disposition planning. Medications: Reviewed: Yes Vitals/I&O/Wt Last Vital Signs Temp 98.1 F 02/07/23 11:53 Pulse 96 02/07/23 11:53 Resp 16 02/07/23 11:53 BP 121/74 02/07/23 11:53 Pulse Ox 93 02/07/23 11:53 02/07/23 02/07/23 02/07/23 06:59 14:59 22:59 Intake Total 50 / 2130 50 / 50 Output Total 650 / 1185 550 / 550 Balance -600 / 945 -500 / -500 Physical Exam Narrative: General: No acute distress, AO x3 HEENT: PERRLA, pupils bilaterally equal and reactive, pallors not present Chest: Normal vesicular breath sounds, no added sounds, equal good air entry bilaterally CVS: S1-S2 regular, no murmurs, no tachycardia, no gallops, no rubs Abdomen: Soft, nontender, no organomegaly, bowel sounds present Neuro: No focal deficits, no facial deformity, AO x3, power 5/5 in all limbs Urinary Catheter Management: Escalat[place] Latex: Cath Placed During This Visit: yes, but has since been removed by the nurse Reason for Continuing Indwelling Catheter: Decision to DC Catheter Urinary Catheter Date of Insertion: 02/06/23 Urinary Catheter Time of Insertion: 10:20 Date Urinary Catheter Removed: 02/06/23 Time Urinary Catheter Discontinued: 16:56 Data 02/07/23 05:25 02/07/23 05:25 A&P Assessment and plan (1) Lymphedema of both lower extremities: (2) CHF (congestive heart failure): (3) Intertrochanteric fracture: Plan 72-year-old male admitted for intertrochanteric fracture that he suffered after a mechanical fall due to his known foot drop s/p ORIF on February 06, 2023. Pain is well controlled today. Continue p.o. oxycodone, morphine 2 mg every 4 hrs prn, lidocaine patch over right knee Wound care per Orthopedics Denies any current chest pain dyspnea or palpitations Continue home dose of Lasix at 40 mg TID currently he is euvolemic, lymphedema is under good control Evaluated by PT today, appreciate assessment. Patient demonstrates decreased endurance and decreased trend, wishes to transition to rehab prior to going back home. Appropriate disposition planning is ongoing with case management. DVT prophylaxis: Lovenox 40 mg subcutaneous daily Full code Attestations Medical Necessity Statement*: Pain is well controlled today. Appreciate PT assessment. Patient likely to benefit from continued therapy, plan transition to long-term facility for the same. Coding Level of Care Code Acute Code for [facility] Diagnoses Lymphedema of both lower extremities I89.0 CHF (congestive heart failure) I50.9 Intertrochanteric fracture S72.143A
[2023-02-07] MEDS: enoxaparin 40 mg/0.4 mL Syringe SUBCUT (15:42)
--- NOTE | 2023-02-07 17:20 | P.PN_ITS ---
Subjective Subjective: Patient is seen in his room today, and he is in much better spirits. He has been up to the bathroom with assist. Medications: Reviewed: Yes Vitals/I&O/Wt Last Vital Signs Temp 98.1 F 02/07/23 16:00 Pulse 93 02/07/23 16:00 Resp 17 02/07/23 16:00 BP 124/76 02/07/23 16:00 Pulse Ox 93 02/07/23 16:00 O2 Del Method Nasal Cannula 02/06/23 12:30 O2 Flow Rate 2 02/06/23 20:00 02/07/23 02/07/23 02/07/23 06:59 14:59 22:59 Intake Total 50 / 2130 50 / 50 Output Total 650 / 1185 550 / 550 Balance -600 / 945 -500 / -500 Physical Exam Const: COMMON NORMALS: no acute distress, average body habitus, patient oriented x3, no limitations, healthy appearing, alert and well nourished GENERAL APPEARANCE: cooperative; not anxious and not combative ORIENTATION/CONSCIOUSNESS: Yes awake, Yes oriented to person, Yes oriented to place and Yes oriented to time HENMT: COMMON NORMALS: normocephalic and atraumatic HEAD & SCALP: normocephalic and atraumatic Eye: GENERAL EYE: appearance normal, both eyes and all related structures EYELID: eyelids normal Chest: COMMONS NORMALS: normal inspection of the chest Resp: COMMON NORMALS: normal respiratory effort EFFORT & INSPECTION: Yes able to speak in complete sentences and Yes symmetric chest movement Extremity: RIGHT LOWER EXTREMITY: Yes hip joint (Patient is up in a chair.) Right hip: Yes inspection (Per nursing, dressing is dry and intact.), Yes ROM (Not evaluated.) and Yes neurovascular exam (No evidence of DVT) Neuro: COMMON NORMALS: patient oriented x3 SENSORIUM/ORIENTATION: Yes alert, Yes oriented to person, Yes oriented to place and Yes oriented to time SPEECH: speech normal GAIT: Yes Normal gait present Psych: ATTITUDE: Yes calm and Yes engaged ACTIVITY/MOTOR BEHAVIOR: Yes appropriate eye contact ATTENTION/CONCENTRATION: Yes attention grossly intact MEMORY/COGNITION: Yes memory grossly intact Skin: COMMON NORMALS: no rashes or lesions noted and turgor normal; negative for no jaundice GENERAL SKIN EXAM: no rashes or lesions noted, turgor normal and no jaundice Urinary Catheter Management: Escalante Latex: Cath Placed During This Visit: yes, but has since been removed by the nurse Reason for Continuing Indwelling Catheter: Decision to DC Catheter Urinary Catheter Date of Insertion: 02/06/23 Urinary Catheter Time of Insertion: 10:20 Date Urinary Catheter Removed: 02/06/23 Time Urinary Catheter Discontinued: 16:56 Data 02/07/23 05:25 02/07/23 05:25 A&P Assessment and plan (1) Closed intertrochanteric fracture of right hip: Patient was admitted with a minimally displaced comminuted right intertrochanteric hip fracture. This occurred as he was participating in physical therapy and caught his foot. He is admitted to the medical service for optimization. Patient underwent uneventful open reduction internal fixation of his right intertrochanteric hip fracture utilizing gamma nail. He is now ambulating with physical therapy and was up to the bathroom. He will likely require senior living at the time of discharge. Attestations Medical Necessity Statement*: Ongoing care following open reduction internal fixation right intertrochanteric hip fracture. Coding Level of Care Code Acute Code for [facility] Fwd Diagnoses Closed intertrochanteric fracture of right hip S72.141A
[2023-02-08] VITALS (11 sets, daily range): BP systolic 121–146; BP diastolic 76–81; PULSE 82–104; RESP 16–20; TEMP 36.4–37.1; O2SAT 92–95
[2023-02-08] MEDS: morphine 4 mg/mL SDV 1 mL 2 MG IVP ×2 (03:13→16:32)
[2023-02-08] MEDS: FUROsemide 40 mg Tablet PO ×3 (08:27→20:24)
--- NOTE | 2023-02-08 13:34 | PM.PN ---
Subjective Subjective: The patient is seen in his room where he is sitting up in a chair. He is working with physical therapy, and has been able to ambulate to the bathroom with assistance. We are attempting to make plans for discharge to long-term. Medications: Reviewed: Yes Vitals/I&O/Wt Last Vital Signs Temp 97.9 F 02/08/23 11:40 Pulse 86 02/08/23 11:40 Resp 17 02/08/23 11:40 BP 146/81 02/08/23 11:40 Pulse Ox 92 02/08/23 11:40 O2 Del Method Nasal Cannula 02/06/23 12:30 O2 Flow Rate 2 02/06/23 20:00 02/07/23 02/08/23 02/08/23 22:59 06:59 14:59 Intake Total 480 / 530 120 / 120 Output Total 350 / 900 350 / 1250 250 / 250 Balance 130 / -370 -350 / -720 -130 / -130 Physical Exam Const: COMMON NORMALS: no acute distress, average body habitus, patient oriented x3, no limitations, healthy appearing, alert and well nourished GENERAL APPEARANCE: cooperative; not anxious and not combative ORIENTATION/CONSCIOUSNESS: Yes awake, Yes oriented to person, Yes oriented to place and Yes oriented to time HENMT: COMMON NORMALS: normocephalic and atraumatic HEAD & SCALP: normocephalic and atraumatic Eye: GENERAL EYE: appearance normal, both eyes and all related structures EYELID: eyelids normal Chest: COMMONS NORMALS: normal inspection of the chest Resp: COMMON NORMALS: normal respiratory effort EFFORT & INSPECTION: Yes able to speak in complete sentences and Yes symmetric chest movement Extremity: RIGHT LOWER EXTREMITY: Yes hip joint (Dressings are dry and intact.) Right hip: Yes inspection (No significant swelling or ecchymosis.), Yes palpation (Minimal tenderness to palpation) and Yes neurovascular exam (No evidence of DVT) Neuro: COMMON NORMALS: patient oriented x3 SENSORIUM/ORIENTATION: Yes alert, Yes oriented to person, Yes oriented to place and Yes oriented to time SPEECH: speech normal GAIT: Yes Normal gait present Psych: ATTITUDE: Yes calm and Yes engaged ACTIVITY/MOTOR BEHAVIOR: Yes appropriate eye contact ATTENTION/CONCENTRATION: Yes attention grossly intact MEMORY/COGNITION: Yes memory grossly intact Skin: COMMON NORMALS: no rashes or lesions noted and turgor normal; negative for no jaundice GENERAL SKIN EXAM: no rashes or lesions noted, turgor normal and no jaundice Urinary Catheter Management: Escalante Latex: Cath Placed During This Visit: yes, but has since been removed by the nurse Reason for Continuing Indwelling Catheter: Decision to DC Catheter Urinary Catheter Date of Insertion: 02/06/23 Urinary Catheter Time of Insertion: 10:20 Date Urinary Catheter Removed: 02/06/23 Time Urinary Catheter Discontinued: 16:56 Data 02/07/23 05:25 02/07/23 05:25 A&P Assessment and plan (1) Closed intertrochanteric fracture of right hip: Patient was admitted with a minimally displaced comminuted right intertrochanteric hip fracture. This occurred as he was participating in physical therapy and caught his foot. He is admitted to the medical service for optimization. Patient underwent uneventful open reduction internal fixation of his right intertrochanteric hip fracture utilizing gamma nail. The patient continues to work with physical therapy. We have requested long-term, and this is in the process of being approved. Attestations Medical Necessity Statement*: Ongoing care following right intertrochanteric hip fracture with subsequent open reduction internal fixation Coding Level of Care Code Acute Code for [facility] Fwd Diagnoses Closed intertrochanteric fracture of right hip S72.141A
[2023-02-08] MEDS: oxyCODONE 5 mg IR Tab/Cap PO ×2 (13:48→20:31)
--- NOTE | 2023-02-08 14:33 | P.PN_ITS ---
Subjective Subjective: Was having some pain in his right hip for which he got Tylenol. He is looking forward to continuing rehabilitation. Did slightly better today walking to the door and back with PT compared to yesterday being able to make it only [address]. Vitals/I&O/Wt Last Vital Signs Temp 97.9 F 02/08/23 11:40 Pulse 86 02/08/23 11:40 Resp 18 02/08/23 13:48 BP 146/81 02/08/23 11:40 Pulse Ox 92 02/08/23 11:40 O2 Del Method Nasal Cannula 02/06/23 12:30 O2 Flow Rate 2 02/06/23 20:00 02/07/23 02/08/23 02/08/23 22:59 06:59 14:59 Intake Total 480 / 530 120 / 120 Output Total 350 / 900 350 / 1250 250 / 250 Balance 130 / -370 -350 / -720 -130 / -130 Physical Exam Const: COMMON NORMALS: patient oriented x3 and alert GENERAL APPEARANCE: cooperative ORIENTATION/CONSCIOUSNESS: Yes awake HENMT: COMMON NORMALS: oropharynx normal Neck/C-Spine: COMMON NORMALS: no JVD Resp: COMMON NORMALS: normal respiratory effort and clear to auscultation bilaterally AUSCULTATION: clear to auscultation bilaterally Cardio: COMMON NORMALS: no JVD, regular rhythm, S1 normal heart sound present, S2 normal heart sound present and No murmurs present (Cardio) RHYTHM: regular rhythm HEART SOUNDS: S1 normal heart sound present and S2 normal heart sound present GI: COMMON NORMALS: Normal to inspection, nondistended, normoactive bowel sounds present, Soft to palpation and non-tender PALPATION: Yes Soft to palpation Extremity: COMMON NORMALS: no joint enlargement and no pedal edema Neuro: COMMON NORMALS: patient oriented x3 and moves all extremities SENSORIUM/ORIENTATION: Yes alert Skin: COMMON NORMALS: no rashes or lesions noted GENERAL SKIN EXAM: no rashes or lesions noted Urinary Catheter Management: Escalante Latex: Cath Placed During This Visit: yes, but has since been removed by the nurse Reason for Continuing Indwelling Catheter: Decision to DC Catheter Urinary Catheter Date of Insertion: 02/06/23 Urinary Catheter Time of Insertion: 10:20 Date Urinary Catheter Removed: 02/06/23 Time Urinary Catheter Discontinued: 16:56 Data 02/07/23 05:25 02/07/23 05:25 A&P Assessment and plan (1) Lymphedema of both lower extremities: (2) CHF (congestive heart failure): (3) Intertrochanteric fracture: Plan 72-year-old male admitted for intertrochanteric fracture that he suffered after a mechanical fall due to his known foot drop s/p ORIF on February 06, 2023. Still some moderate pain, he feels might not be entirely controlled by Tylenol. Discussed with him to let us know depending on how he responds to Tylenol consideration of escalating pain control regimen. Pending approval for rehabilitation at [facility]. Discussed with case management. Continue home dose of Lasix at 40 mg TID currently he is euvolemic, lymphedema is under good control DVT prophylaxis: Lovenox 40 mg subcutaneous daily Full code Attestations Medical Necessity Statement*: Continue management following right hip fracture and repair, optimization of pain control, postdischarge rehabilitation arrangements. Diagnoses Lymphedema of both lower extremities I89.0 CHF (congestive heart failure) I50.9 Intertrochanteric fracture S72.143A
[2023-02-08] MEDS: enoxaparin 40 mg/0.4 mL Syringe SUBCUT (16:20)
[2023-02-09] VITALS: BP 141/90; PULSE 88; RESP 18; TEMP 36.4; O2SAT 99
[2023-02-09 04:00] VITALS: BP 136/77; PULSE 85; RESP 17; TEMP 36.4; O2SAT 95
[2023-02-09 06:33] VITALS: PULSE 82
[2023-02-09 07:48] VITALS: BP 151/78; PULSE 78; RESP 16; TEMP 36.5; O2SAT 96
[2023-02-09 08:09] VITALS: RESP 16
[2023-02-09] MEDS: oxyCODONE 5 mg IR Tab/Cap PO (08:09)
[2023-02-09] MEDS: acetaminophen 325 mg Tablet 650 MG PO (08:09)
--- NOTE | 2023-02-09 08:51 | P.DS_ITS ---
Discharge Providers Date of Admission: 02/05/23 14:04 Date of Discharge: February 09, 2023 Attending Provider at Admission: Osiris Foote MD Attending Provider at Discharge: Sonu Looney Primary Care Provider: Esvin Handley DO Diagnoses at Discharge Discharge Diagnosis (1) Closed intertrochanteric fracture of right hip: Details from hospital stay: Discussed with him regarding continued DVT prophylaxis with Lovenox, risk of bleeding, fall prevention. Discussed with him risk of continued opioid therapy, he verbalizes awareness of the risks, please continue to de-escalate pain regiment with recovery and discontinue opioids as soon as no longer necessary. Status: Acute Reason for Visit Reason for Visit: had a fall at [facility] Hospital Course Hospital Course Pleasant 72-year-old gentleman was admitted and treated for intertrochanteric left hip fracture after a mechanical fall. He underwent ORIF on 02/06 with uneventful postoperative recovery. He is working with physical therapy. We will continue rehabilitation over at SNF. With regards to cardiac condition remained euvolemic, continues on Lasix. Physical Exam Const: COMMON NORMALS: patient oriented x3 and alert GENERAL APPEARANCE: cooperative ORIENTATION/CONSCIOUSNESS: Yes awake HENMT: COMMON NORMALS: oropharynx normal Neck/C-Spine: COMMON NORMALS: no JVD Resp: COMMON NORMALS: normal respiratory effort and clear to auscultation bilaterally AUSCULTATION: clear to auscultation bilaterally Cardio: COMMON NORMALS: no JVD, regular rhythm, S1 normal heart sound present, S2 normal heart sound present and No murmurs present (Cardio) RHYTHM: regular rhythm HEART SOUNDS: S1 normal heart sound present and S2 normal heart sound present GI: COMMON NORMALS: Normal to inspection, nondistended, normoactive bowel sounds present, Soft to palpation and non-tender PALPATION: Yes Soft to palpation Extremity: COMMON NORMALS: no joint enlargement and no pedal edema OTHER: No bruising bleeding or swelling, no redness of the right thigh. Neuro: COMMON NORMALS: patient oriented x3 and moves all extremities SENSORIUM/ORIENTATION: Yes alert Skin: COMMON NORMALS: no rashes or lesions noted GENERAL SKIN EXAM: no rashes or lesions noted Urinary Catheter Management: Escalante Latex: Cath Placed During This Visit: yes, but has since been removed by the nurse Reason for Continuing Indwelling Catheter: Decision to DC Catheter Urinary Catheter Date of Insertion: 02/06/23 Urinary Catheter Time of Insertion: 10:20 Date Urinary Catheter Removed: 02/06/23 Time Urinary Catheter Discontinued: 16:56 Discharge Data Studies Completed and Pending Completed Studies During Hospitalization Category Date Time Status CXRP [XR chest 1V portable [id number]] Stat Exams 02/05/23 12:44 Completed XR hip RT 2-3V wo/w pel* [id number] Routine Exams 02/06/23 Completed XR hip RT 2-3V wo/w pel* [id number] Stat Exams 02/05/23 11:33 Completed Pending at discharge Category Date Time Status SARS Covid-2 Antigen Routine Lab 02/09/23 08:20 Uncollected Laboratory Results WBC 10.0 10^3/uL (4.0-10.0) 02/07/23 05:25 RBC 4.27 10^6/uL (4.1-5.3) 02/07/23 05:25 Hgb 12.7 g/dL (11.7-16.6) 02/07/23 05:25 Hct 40.6 % (42.0-52.0) L 02/07/23 05:25 MCV 95.1 fl (80-94) H 02/07/23 05:25 MCH 29.7 pg (28.0-34.0) 02/07/23 05:25 MCHC 31.3 g/dL (30.0-36.0) 02/07/23 05:25 RDW 13.3 % (12.1-15.1) 02/07/23 05:25 Plt Count 197 10^3/cmm (130-400) 02/07/23 05:25 MPV 10.6 fL (7.4-10.4) H 02/07/23 05:25 Neut % (Auto) 82.4 % 02/07/23 05:25 Lymph % (Auto) 6.0 % 02/07/23 05:25 [place] % (Auto) 10.7 % 02/07/23 05:25 Eos % (Auto) 0.2 % 02/07/23 05:25 Baso % (Auto) 0.2 % 02/07/23 05:25 Neut # (Auto) 8.23 10^3/uL (1.8-7.7) H 02/07/23 05:25 Lymph # (Auto) 0.6 10^3/uL (0.8-4.8) L 02/07/23 05:25 [place] # (Auto) 1.1 10^3/uL (0.2-0.9) H 02/07/23 05:25 Eos # (Auto) 0.0 10^3/uL (0.0-0.8) 02/07/23 05:25 Baso # (Auto) 0.0 10^3/uL (0.0-0.1) 02/07/23 05:25 Nucleated RBC % (auto) 0 % 02/07/23 05:25 Nucleated RBCs # 0.0 /100WBC 02/07/23 05:25 Sodium 139 mmol/L (136-145) 02/07/23 05:25 Potassium 3.7 mmol/L (3.5-5.1) 02/07/23 05:25 Chloride 98 mmol/L (98-107) 02/07/23 05:25 Carbon Dioxide 31 mmol/L (22-29) H 02/07/23 05:25 Anion Gap 13.7 (5-19) 02/07/23 05:25 BUN 11 mg/dL (8-23) 02/07/23 05:25 Creatinine 0.8 mg/dL (0.7-1.2) 02/07/23 05:25 GFR Calculation Not Reportable 02/07/23 05:25 Glucose 112 mg/dL (65-115) 02/07/23 05:25 Calculated Osmolality 288 mOsm/kg (285-295) 02/07/23 05:25 Calcium 8.5 mg/dL (8.5-10.5) 02/07/23 05:25 Magnesium 2.2 mg/dL (1.7-2.3) 02/06/23 04:07 Total Bilirubin 0.9 mg/dL (0.15-1.2) 02/07/23 05:25 AST 19 U/L (0-40) 02/07/23 05:25 ALT 14 U/L (0-41) 02/07/23 05:25 Alkaline Phosphatase 80 U/L (40-130) 02/07/23 05:25 Total Protein 6.1 g/dL (6.6-8.7) L 02/07/23 05:25 Albumin 3.6 g/dL (3.5-5.2) 02/07/23 05:25 Globulin 2.5 g/dL (1.3-4.6) 02/07/23 05:25 Vitals Last Vital Signs Temp 97.7 F 02/09/23 07:48 Pulse 78 02/09/23 07:48 Resp 16 02/09/23 08:09 BP 151/78 02/09/23 07:48 Pulse Ox 96 02/09/23 07:48 O2 Del Method Room Air 02/09/23 07:48 O2 Flow Rate 2 02/06/23 20:00 Discharge Plan Discharge Patient Disposition: Xfer SNF Condition: Stable Prescriptions: New acetaminophen 325 mg Tablet 650 mg PO Q6H PRN (Reason: Mild/Mod Pain Or Temp >/= 101) Qty: 30 0RF Stool Softener-Laxative 8.6-50 mg Tablet 2 tab PO BID Qty: 90 0RF enoxaparin 40 mg/0.4 mL Syringe 40 mg SUBCUT Q24H 21 Days Qty: 8.4 0RF oxycodone 5 mg tablet 5 - 10 mg PO Q4H PRN (Reason: pain) Qty: 12 0RF Continued (DME) [employer]el Care Lotion See Rx Instructions .Route .MEDSUPPLY Qty: 1 0RF Rx Instructions: As directed dorzolamide-timolol 22.3-6.8 mg/mL drops 1 drop ophthalmic (eye) BID furosemide 40 mg tablet 120 mg PO DIRECTED Qty: 270 3RF Rx Instructions: 80mg (2 tabs) in AM and 40mg (1 tab) in PM potassium gluconate 600 mg (99 mg) tablet 600 mg PO DAILY (DME) compr.stocking,knee,long,x-lrg Misc See Rx Instructions .ROUTE .MEDSUPPLY Qty: 2 0RF Rx Instructions: Zip up stockings ketoconazole 1 % Shampoo 1 applic TOPICAL EVERY OTHER DAY terbinafine HCl 1 % cream 1 applic topical BID Qty: 30 0RF Rx Instructions: rash on foot Discharge Orders: Discharge Order (Routine); Ordered 02/09/23 Ordered By: Sonu Looney Referrals: Melvina Nieves MD [Physician] - 02/22/23 10:30 am Esvin Handley DO [Primary Care Provider] - 4-7 days Discharge Activity: As per PT/OT instructions Patient Instructions: Enoxaparin (By injection), Fall Prevention (GEN), ORIF of Hip Fracture (GEN), Opioid Safety Discharge Attestations Time Spent in Discharge Care*: greater than 30 min Quality Metrics Clinical Quality Measures [ No reported AMI, CVA or VTE this stay] Coding Level of Care Code 41780 Total time (in minutes) for Discharge: 40 Diagnoses Closed intertrochanteric fracture of right hip S72.141A
[2023-02-09] MEDS: pantoprazole DR 40 mg Tablet PO (09:21)
[2023-02-09] MEDS: FUROsemide 40 mg Tablet PO (09:21)
[2023-02-09 11:10] LABS: SARS Covid-2 Antigen Negative (Negative)
[2023-02-09 12:00] VITALS: BP 156/98; PULSE 85; RESP 17; TEMP 36.6; O2SAT 94
== END 2023-02-09 12:30 | disposition skilled nursing facility (03) | DRG 481 ==
LOC: ER 13:42 → MEDSURG 14:06
PROVIDERS: Specialist; Admitting Provider Student in an Organized Health Care Education/Training Program; Emergency Provider Nurse Practitioner; PCP Emergency Medicine Emergency Medical Services; Visit Provider Internal Medicine
PROC: 0QH636Z Insertion of Intramedullary Internal Fixation Device into Right Upper Femur, Percutaneous Approach (ICD-10-PCS; CPT 27245; principal; 2023-02-06 10:00)
DX: S72.141A Displaced intertrochanteric fracture of right femur, initial encounter for closed fracture (principal); I50.32 Chronic diastolic (congestive) heart failure; W01.0XXA Fall on same level from slipping, tripping and stumbling without subsequent striking against object, initial encounter; I73.9 Peripheral vascular disease, unspecified; F60.3 Borderline personality disorder; Z87.891 Personal history of nicotine dependence; M21.372 Foot drop, left foot
CPT/HCPCS: 12345; 36415; 51702; 71045; 73502; 76000; 80053; 83735; 85025; 87426; 96372; 96374; 96375; 97110; 97116; 97161; 97165; 97530; 97535; 99285; C1713; J0131; J0690; J1170; J1650; J2270; J2405; J2704; J3010; J3490; J7030

== ENCOUNTER → 2023-02-22 10:28 | Outpatient (BNVA) | payer OTHER, SELFPAY | PROVIDERS: PCP Emergency Medicine Emergency Medical Services; Visit Provider Specialist | DX: S72.141D Displaced intertrochanteric fracture of right femur, subsequent encounter for closed fracture with routine healing; X58.XXXD Exposure to other specified factors, subsequent encounter | CPT/HCPCS: 73502; 99024 ==

== ENCOUNTER 2023-03-02 08:49 | Emergency (ER) | payer OTHER, SELFPAY ==
[2023-03-02 08:58] VITALS: BP 126/79; PULSE 98; RESP 19; O2SAT 93
--- NOTE | 2023-03-02 09:05 | W.ED.EXTPRO ---
HPI - Extremity Problem General: Chief complaint: Extremity Injury, Lower Stated complaint: R Hip Pain Time Seen by Provider: 03/02/23 08:54 Source: patient and EMS Mode of arrival: EMS Limitations: no limitations History of Present Illness: Patient is a 72-year-old male with a history of peripheral vascular disease, lymphedema, heart failure with preserved ejection fraction, and recent right hip surgery here with complaints of right groin pain (has had for several months) and swelling to his bilateral lower extremities (right greater than left). Patient is not the greatest of historians and cannot seem to give me a timeframe of when or if his legs are worsened apart from his baseline. He states they are always swollen but doesn't seem to be able to describe for me if this is worse than his baseline and if the erythema is new or worsening. He states he has seen several providers in regards to his peripheral vascular disease. Looking through documentation of his recent hospitalization and hip surgery Dr. Nieves did comment that lymphedema was present to bilateral lower extremities with erythematous discoloration. He is not running fevers. He states back in December he had an ultrasound of the groin which was normal apart from some mildly prominent lymph nodes. MD Complaint: extremity pain, extremity swelling and joint pain Location: right and lower extremity Radiation: none Relieving factors: nothing Exacerbating factors: nothing Associated symptoms: Reports no associated symptoms; Deny chest pain or fever(s) Context: recent surgery/procedure and history of peripheral vascular disease Review of Systems Const: Denies: fever(s), chills, body aches, fatigue or malaise Card: Reports: edema and swelling of feet/ankles; Denies: chest pain, palpitations, irregular heart rhythm, lightheadedness, syncope or pre-syncope Resp: Denies: dyspnea or chest congestion GI: Denies: abdominal pain, nausea or vomiting : Denies: flank pain, dysuria or hematuria Musc: Reports: extremity pain, extremity swelling and joint pain (R hip); Denies: neck pain, back pain or joint swelling Skin/Breast: Reports: erythema Neuro: Denies: numbness in extremities or sensory changes [facility] ED PFSH: Medical History Borderline personality disorder CHF (congestive heart failure) Peripheral Vascular Disease Varicose veins of bilateral lower extremities with other complications Surgical History History of back surgery S/P carpal tunnel release S/P cholecystectomy S/P foot surgery S/P routine circumcision Family History Mother Cancer Breast CA Father CAD (coronary artery disease) Myocardial infarct MD age 58 Diabetes Stroke Hypertension Social History Smoking and tobacco status: former smoker Physical Exam Const: COMMON NORMALS: no acute distress, patient oriented x3, no limitations, healthy appearing, alert and well nourished GENERAL APPEARANCE: cooperative ORIENTATION/CONSCIOUSNESS: Yes awake, Yes oriented to place and Yes oriented to time OTHER: odorous HENMT: COMMON NORMALS: normocephalic and atraumatic HEAD & SCALP: normal to inspection, normocephalic and atraumatic Neck/C-Spine: COMMON NORMALS: no JVD Resp: COMMON NORMALS: normal respiratory effort and clear to auscultation bilaterally AUSCULTATION: clear to auscultation bilaterally Cardio: COMMON NORMALS: no JVD, regular rate and regular rhythm RATE: regular rate RHYTHM: regular rhythm GI: COMMON NORMALS: Normal to inspection, nondistended, normoactive bowel sounds present, Soft to palpation and non-tender PALPATION: Yes Soft to palpation Back/Pelvis: COMMON NORMALS: thoracic and lumbar spine normal to inspection and no thoracic nor lumbar tenderness Extremity: GENERAL: Yes normal exam except as noted RIGHT LOWER EXTREMITY: Yes hip joint (pt has old/healing ecchymosis lateral R hip; incisions are clean) Right hip: Yes inspection (no redness/swelling/warmth overlying hip joint or incisions) and Yes neurovascular exam (normal), Yes upper leg (ecchymosis medial distal thigh with underlying edema) and Yes lower leg LEFT LOWER EXTREMITY: Yes lower leg OTHER: pt has extensive bilateral R>L lymphedema with overlying erythema and dusky toe appearances-could be cellulitis vs dependent rubor from his known PVD; there is no drainage or open wounds anywhere; right leg is significantly bigger than the left-some of which could be secondary to recent hip surgery; left foot is cooler to the touch and DP/PT pulses could not be found with doppler; pulses to right lower extremity easily found Neuro: COMMON NORMALS: patient oriented x3, moves all extremities, no focal motor deficits and no sensory deficits noted SENSORIUM/ORIENTATION: Yes alert, Yes oriented to place and Yes oriented to time Course Vital Signs: Vital signs: Vital Signs Pulse Rate 93 03/02/23 11:00 Respiratory Rate 16 03/02/23 09:47 Blood Pressure 92/79 03/02/23 11:00 Pulse Oximetry 99 03/02/23 11:00 Oxygen Delivery Me thod Room Air 03/02/23 09:28 MDM - Extremity (Nontraumatic) Medical Decision Making Patient is a 72-year-old male with known bilateral lymphedema and significant peripheral vascular disease here with complaints of swelling and redness to his legs (right greater than left). Patient is not a great historian and does not seem to be able to tell me whether swelling/redness is worse than his baseline. He does come across as fairly noncompliant stating he does not like to wrap his legs and refuses to elevate them. On exam he does have bilateral lymphedema (R>L) with overlying erythema/dusky appearances. He has easily palpable pulses on the right side but I could not establish pulses on the left therefore arterial ultrasound was completed on the left and US tech stated there was no occlusion present. US venous of the right leg was ordered due to swelling/redness/recent surgery. US tech reported no DVT here. His surgical incisions look great. XR performed just last week during follow up with surgeon. Blood work showing a normal white count. He is not tachycardic or febrile. Labs show mildly elevated inflammatory markers (ESR of 22 and CRP of 24). At this time I do not see any reason for hospitalization. I will place on antibiotics for a possible cellulitis although some of these skin changes may just be secondary to his PVD/lymphedema. I will set him up to see wound care to see if they can help with wrapping and further care. He states he has an appointment with a below the knee vascular specialist in [place] next month. Return to ED precautions given. Lab Data 03/02/23 09:40 03/02/23 09:40 Radiology Impressions Chest X-Ray 03/02/23 09:12 IMPRESSION: No acute cardiopulmonary abnormality. Laboratory Results WBC 10.22 10^3/uL (3.29-11.43) 03/02/23 09:40 RBC 4.13 10^6/uL (3.85-5.65) 03/02/23 09:40 Hgb 12.40 g/dL (11.27-16.99) 03/02/23 09:40 Hct 40.3 % (37-53) 03/02/23 09:40 MCV 97.6 fl (82-101) 03/02/23 09:40 MCH 30.0 pg (27-33) 03/02/23 09:40 MCHC 30.8 g/dL (30-55) 03/02/23 09:40 RDW 13.2 % (12.1-15.1) 03/02/23 09:40 Plt Count 274 10^3/cmm (157-399) 03/02/23 09:40 MPV 9.8 fL (7.4-10.4) 03/02/23 09:40 Neut % (Auto) 78.2 % 03/02/23 09:40 Lymph % (Auto) 9.2 % 03/02/23 09:40 [place] % (Auto) 9.0 % 03/02/23 09:40 Eos % (Auto) 2.6 % 03/02/23 09:40 Baso % (Auto) 0.2 % 03/02/23 09:40 Neut # (Auto) 7.99 10^3/uL (1.8-7.7) H 03/02/23 09:40 Lymph # (Auto) 0.9 10^3/uL (0.8-4.8) 03/02/23 09:40 [place] # (Auto) 0.9 10^3/uL (0.2-0.9) 03/02/23 09:40 Eos # (Auto) 0.3 10^3/uL (0.0-0.8) 03/02/23 09:40 Baso # (Auto) 0.0 10^3/uL (0.0-0.1) 03/02/23 09:40 Nucleated RBC % (auto) 0 % 03/02/23 09:40 Nucleated RBCs # 0.0 /100WBC 03/02/23 09:40 ESR 22 mm/hr (0-10) H 03/02/23 09:40 Sodium 137 mmol/L (136-145) 03/02/23 09:40 Potassium 3.6 mmol/L (3.5-5.1) 03/02/23 09:40 Chloride 97 mmol/L (98-107) L 03/02/23 09:40 Carbon Dioxide 33 mmol/L (22-29) H 03/02/23 09:40 Anion Gap 10.6 (5-19) 03/02/23 09:40 BUN 21 mg/dL (8-23) 03/02/23 09:40 Creatinine 0.9 mg/dL (0.7-1.2) 03/02/23 09:40 GFR Calculation Not Reportable 03/02/23 09:40 Glucose 88 mg/dL (65-115) 03/02/23 09:40 Calculated Osmolality 286 mOsm/kg (285-295) 03/02/23 09:40 Calcium 9.7 mg/dL (8.5-10.5) 03/02/23 09:40 Total Bilirubin 0.6 mg/dL (0.15-1.2) 03/02/23 09:40 AST 13 U/L (0-40) 03/02/23 09:40 ALT 14 U/L (0-41) 03/02/23 09:40 Alkaline Phosphatase 191 U/L (40-130) H 03/02/23 09:40 C-Reactive Protein 24.4 mg/L (0.0-4.9) H 03/02/23 09:40 Total Protein 6.9 g/dL (6.6-8.7) 03/02/23 09:40 Albumin 4.1 g/dL (3.5-5.2) 03/02/23 09:40 Globulin 2.8 g/dL (1.3-4.6) 03/02/23 09:40 Discharge Plan Discharge Patient Disposition: Home Clinical Impression: Lymphedema of both lower extremities, Cellulitis of foot, right, Peripheral vascular disease Condition: Stable Prescriptions: New doxycycline monohydrate 100 mg capsule 100 mg PO Q12H 10 Days Qty: 20 0RF hydrocodone-acetaminophen 5-325 mg tablet 1 tab PO Q6H PRN (Reason: pain) Qty: 14 0RF No Action (DME) [employer] Care Lotion See Rx Instructions .Route .MEDSUPPLY Qty: 1 0RF Rx Instructions: As directed dorzolamide-timolol 22.3-6.8 mg/mL drops 1 drop ophthalmic (eye) BID (DME) compr.stocking,knee,long,x-lrg Misc See Rx Instructions .ROUTE .MEDSUPPLY Qty: 2 0RF Rx Instructions: Zip up stockings ketoconazole 1 % Shampoo 1 applic TOPICAL EVERY OTHER DAY Lasix 40 mg Tablet 40 mg PO TID vitamin E 670 mg (1,000 unit) Capsule 670 mg PO DAILY Vitamin C 1,000 mg Tablet 1,000 mg PO DAILY aspirin 325 mg Tablet 325 mg PO DAILY naproxen 250 mg Tablet 250 mg PO Q12H PRN (Reason: Pain) methocarbamol 750 mg Tablet 750 mg PO Q8H PRN (Reason: Muscle Spasm) triamcinolone acetonide 0.025 % Cream 1 applic TOPICAL Q12H PRN (Reason: unknown) metoprolol tartrate 50 mg Tablet 50 mg PO BID magnesium oxide 500 mg Tablet 500 mg PO DAILY bisacodyl 5 mg Tablet 5 mg PO DAILY PRN (Reason: Constipation) Calcium 600 + D(3) 600 mg-10 mcg (400 unit) Tablet 1 tab PO DAILY Vitamin D3 125 mcg (5,000 unit) Tablet 125 mcg PO DAILY potassium chloride 20 mEq Tablet Extended Release 20 meq PO DAILY prednisolone acet-gatifloxacin 1-0.5 % Drops,Suspension 1 drp OPHTHALMIC (EYE) DAILY ibuprofen 800 mg Tablet 800 mg PO BID Discharge Orders: Discharge ED (Routine); Ordered 03/02/23 Ordered By: Kaylene Peters Referrals: Esvin Handley, [Primary Care Provider] - Activity Restrictions/Additional Instructions: As we discussed I would like you to continue to follow-up with your primary care provider. You need to elevate the extremities is much as possible and take your Lasix as prescribed. I will place a case management referral to get you set up with our wound care clinic for further evaluation and treatment of your lymphedema and peripheral vascular disease. Coding Level of Care Code ED [employer] Machine Operator for Janelle Ojeda
--- NOTE | 2023-03-02 09:08 | USCV_ITS ---
Ac Paz Age: 72 Gender: M : 1950 Exam Date: 03/02/2023 09:56 Ordering Phys: Kaylene Peters Technologist: DESTINY Exam Location: [facility] [place] Indication: RLE PAIN HISTORY: Lower extremity pain. PROCEDURES: Venous duplex imaging was performed in only the right lower extremity. The following venous structures were evaluated: common femoral vein, profunda vein, proximal portion of the greater saphenous vein, superficial femoral vein, and the popliteal vein. In addition, the posterior tibial and peroneal trunk were evaluated. Serial compression, augmentation maneuvers, and spectral Doppler flow evaluation were performed. FINDINGS: No evidence of DVT seen in any vessel visualized at this time. CONCLUSIONS . No evidence of right lower extremity DVT. Jaya Diop MD (Electronically Signed) Final Date: 02 March 2023 12:49 S
--- NOTE | 2023-03-02 09:12 | XRR_ITS ---
PROCEDURE INFORMATION: Exam: XR Chest Exam date and time: 03/02/2023 9:17 AM Age: 72 years old Clinical indication: Other: Bilateral le edema TECHNIQUE: Imaging protocol: Radiologic exam of the chest. Views: 1 view. COMPARISON: CR XR chest 1V portable [id number] 02/05/2023 12:50 PM FINDINGS: Lungs: No focal airspace disease. Pleural spaces: Unremarkable. No pleural effusion. No pneumothorax. Heart/Mediastinum: Cardiomediastinal silhouette is within normal limits. Bones/joints: Unremarkable. XR/XR chest 1V portable [id number] IMPRESSION: No acute cardiopulmonary abnormality.
[2023-03-02 09:28] VITALS: BP 119/74; PULSE 89; RESP 19; O2SAT 97
[2023-03-02 09:47] VITALS: RESP 16; O2SAT 92
[2023-03-02] MEDS: morphine 4 mg/mL SDV 1 mL IVP (09:47)
--- NOTE | 2023-03-02 09:48 | USR_ITS ---
PROCEDURE INFORMATION: Exam: US Duplex Left Lower Extremity Arteries Or Arterial Bypass Grafts Exam date and time: 03/02/2023 10:05 AM Age: 72 years old Clinical indication: Other: Pulselessness; Additional info: Coolness, cannot doppler pulses TECHNIQUE: Imaging protocol: Left Real-time duplex scan of the arteries or arterial bypass grafts of the left lower extremity with 2-D ta scale, color Doppler flow and spectral waveform analysis. Images documented and saved. COMPARISON: US soft tissue/extremity [id number] 01/19/2023 1:19 PM FINDINGS: Left common femoral artery: No occlusion or significant stenosis. Normal waveform. Left superficial femoral artery: No occlusion or significant stenosis. Normal waveform. Left popliteal artery: No occlusion or significant stenosis. Normal waveform. Left calf/foot arteries: Dampened monophasic waveform left posterior tibial artery and may be secondary to more proximal stenosis.. Dorsalis pedis artery [place]. US/[place] [id number] IMPRESSION: Poststenotic waveform appearance left posterior tibial artery otherwise unremarkable exam.
[2023-03-02] MEDS: ondansetron 2 mg/ML SDV 2 mL 4 MG IVP (09:49)
[2023-03-02 09:55] LABS: Basophils % 0.2 %; Eosinophils # 0.3 10^3/uL (0.0-0.8); Eosinophils % 2.6 %; Hematocrit 40.3 % (37-53); Lymphocytes # 0.9 10^3/uL (0.8-4.8); Lymphocytes % 9.2 %; Mean Corpuscular HGB Conc 30.8 g/dL (30-55); Mean Corpuscular Volume 97.6 fl (82-101); Mean Platelet Volume 9.8 fL (7.4-10.4); Monocytes # 0.9 10^3/uL (0.2-0.9); Neutrophils # 7.99 10^3/uL (1.8-7.7); Neutrophils % 78.2 %; Nucleated Red Blood Cells % 0 %; Platelet Count 274 10^3/cmm (157-399); Red Blood Count 4.13 10^6/uL (3.85-5.65); Red Cell Distribution Width 13.2 % (12.1-15.1); White Blood Count 10.22 10^3/uL (3.29-11.43)
[2023-03-02 10:18] LABS: Erythrocyte Sedimentation Rate 22 mm/hr (0-10)
[2023-03-02 10:21] LABS: Alanine Aminotransferase 14 U/L (0-41); Albumin Level 4.1 g/dL (3.5-5.2); Alkaline Phosphatase 191 U/L (40-130); Anion Gap 10.6 (5-19); Aspartate Amino Transferase 13 U/L (0-40); Blood Urea Nitrogen 21 mg/dL (8-23); C Reactive Protein 24.4 mg/L (0.0-4.9); Calcium 9.7 mg/dL (8.5-10.5); Carbon Dioxide 33 mmol/L (22-29); Chloride 97 mmol/L (98-107); Globulin 2.8 g/dL (1.3-4.6); Glucose 88 mg/dL (65-115); Osmolality Calculated 286 mOsm/kg (285-295); Potassium 3.6 mmol/L (3.5-5.1); Sodium 137 mmol/L (136-145); Total Bilirubin 0.6 mg/dL (0.15-1.2); Total Protein 6.9 g/dL (6.6-8.7)
--- NOTE | 2023-03-02 10:54 | PC.PHAR ---
Addendum entered by Sydni Muse 03/02/23 12:24: pt is discharged [facility] got [facility]-medications entered are meds from the pts med list from [facility] and from what pts daughter states the pt takes Original Note: pts daughter barbara states the pt has [facility] per reagan from [facility] states she will fax med list and pts daughter also states the pt gets [facility]-pt was discharged from a co on sat 02/27/23-
[2023-03-02 11:00] VITALS: BP 92/79; PULSE 93; O2SAT 99
--- NOTE | 2023-03-02 11:48 | DCPLANNER ---
Addendum entered by Nina Mitchell 03/05/23 09:48: Patient has a follow up appointment scheduled for Wednesday, March 08, 2023 at 1:[address] Gann at [facility]. Addendum entered by Nina Mitchell 03/02/23 13:27: associate program manager received the following message from [facility] regarding follow up appointment: Tried calling pt for an appt. Pt has no voicemail set up. Will try again later. Thanks Original Note: associate program manager had message to schedule a follow up appointment for patient with [facility]. associate program manager sent patients information to the front office staff at wound care. Patients information will be printed and reviewed. Clinic will call patient with appointment information.
== END 2023-03-02 13:02 | disposition home or self-care (01) ==
PROVIDERS: Emergency Provider Physician Assistant; PCP Emergency Medicine Emergency Medical Services
DX: I89.0 Lymphedema, not elsewhere classified (principal); L03.115 Cellulitis of right lower limb; I73.9 Peripheral vascular disease, unspecified; Z79.82 Long term (current) use of aspirin; I50.9 Heart failure, unspecified; Z87.891 Personal history of nicotine dependence; M79.604 Pain in right leg
CPT/HCPCS: 71045; 80053; 85025; 85651; 86140; 93926; 93971; 96374; 96375; 99285; J2270; J2405

== ENCOUNTER 2023-04-08 10:50 | Outpatient (CLI) | payer OTHER, SELFPAY ==
[2023-04-08] MEDS: iohexol 350 mg/mL 500 mL Btl (per mL) PO (11:12)
[2023-04-08] MEDS: iohexol 350 mg/mL 500 mL Btl (per mL) IV (11:12)
--- NOTE | 2023-04-08 12:00 | CTR_ITS ---
PROCEDURE INFORMATION: Exam: CT Abdomen And Pelvis With Contrast Exam date and time: 04/08/2023 12:33 PM Age: 73 years old Clinical indication: Abdominal pain; Localized; Right lower quadrant (rlq); Prior surgery; Surgery date: 6+ months; Surgery type: RT hip; Patient HX: Rlq pain x 3 months TECHNIQUE: Imaging protocol: Computed tomography of the abdomen and pelvis with contrast. Radiation optimization: All CT scans at this facility use at least one of these dose optimization techniques: automated exposure control; mA and/or kV adjustment per patient size (includes targeted exams where dose is matched to clinical indication); or iterative reconstruction. Contrast material: OMNI 350; Contrast volume: 100 ml; Contrast route: INTRAVENOUS (IV); REPORTING DATA: Count of CT and Cardiac NM exams in prior 12 months: This patient has received [address] and 0 known cardiac nuclear medicine studies in the 12 months prior to the current study. COMPARISON: CR XR hip RT 2-3V wo/w pel* [id number] 02/22/2023 10:34 AM RADIATION DOSE METRICS: Total DLP (mGy-cm): 637.33 FINDINGS: Liver: The liver is normal. Gallbladder and bile ducts: The gallbladder is absent. Pancreas: The pancreas is unremarkable. Spleen: The spleen is unremarkable. Adrenal glands: The adrenal glands are unremarkable. Kidneys and ureters: There is contrast in the renal collecting systems which would obscure small stones if present. There are subcentimeter simple cysts in the left kidney. There is no hydronephrosis or ureteral dilation. Stomach and bowel: The stomach is decompressed, preventing meaningful evaluation of wall thickness. The small bowel is nondilated. The colon is unremarkable. Appendix: The appendix is normal. Intraperitoneal space: There is no free air or significant intraperitoneal free fluid. Vasculature: There is moderate aortic atherosclerotic disease. There is 2.8 cm focal ectasia of the infrarenal abdominal aorta. The portal, splenic and superior mesenteric veins are patent. Lymph nodes: There is no lymphadenopathy in the retroperitoneum, mesentery, pelvis or inguinal regions. Urinary bladder: The urinary bladder is decompressed, preventing meaningful evaluation of wall thickness. Reproductive: There is nonspecific mild enlargement of the prostate gland. Bones/joints: There is moderate degenerative disease in the lumbar spine. There is a healing intertrochanteric fracture of the right proximal femur with intact trochanteric nail and dynamic compression screw fixation. It there is moderate heterotopic ossification around the fracture site. There is moderate degenerative disease of both hips. The pelvis is intact. Soft tissues: There is a small fat containing right inguinal hernia. There is fatty atrophy of the gluteus minimus bilaterally. CT/CT abdomen pelvis w con* [id number] IMPRESSION: 1. No acute findings. 2. Small fat containing right inguinal hernia. 3. Incidental findings above. COMMENTS: Consistent with the [employer]'s Incidental Findings Committee white paper (J Am Leodan Radiol 2018): Any incidental renal lesion less than 1 cm or classified as too small to characterize, or any incidental cystic renal lesion characterized as simple-appearing, is likely benign. No follow-up imaging is recommended for these lesions per consensus recommendations based on imaging criteria.
== END 2023-04-08 10:51 | disposition home or self-care (01) ==
PROVIDERS: PCP Emergency Medicine Emergency Medical Services; Visit Provider Emergency Medicine Emergency Medical Services
DX: R10.31 Right lower quadrant pain (principal); Z98.890 Other specified postprocedural states; K40.90 Unilateral inguinal hernia, without obstruction or gangrene, not specified as recurrent; S72.141D Displaced intertrochanteric fracture of right femur, subsequent encounter for closed fracture with routine healing; X58.XXXD Exposure to other specified factors, subsequent encounter
CPT/HCPCS: 73502; 74177; 99024; Q9967

== ENCOUNTER 2023-05-18 13:11 | Emergency (ER) | payer OTHER, SELFPAY ==
[2023-05-18 13:19] VITALS: BP 127/81; PULSE 117; RESP 15; TEMP 37.1; O2SAT 95; BMI 27.8
--- NOTE | 2023-05-18 15:37 | PC.PHAR ---
pt has [facility] [phone]-josefa cotter from [facility] will fax med list
--- NOTE | 2023-05-18 16:23 | W.ED.GENADLT ---
HPI - General Adult General: Chief complaint: General Medical Stated complaint: blisters on ankle Time Seen by Provider: 05/18/23 15:30 History of Present Illness: 73-year-old male presents emergency department and states that he wants his right lower leg wound dressing change. He states he is for the previous 4 weeks had a superficial skin abrasion that seems to be not healing and worse because of his lymphedema. He does have a superficial eruption of a previous blister. It does appear that his right foot is chronically erythematous secondary to his lymphedema. Review of Systems General: Reports: 10 or more systems reviewed and unremarkable except in HPI and below Skin/Breast: Reports: non-healing lesions and other (Chronic right lower leg lymphedema) [facility] ED PFSH: Medical History Borderline personality disorder CHF (congestive heart failure) Peripheral Vascular Disease Varicose veins of bilateral lower extremities with other complications Surgical History History of back surgery S/P carpal tunnel release S/P cholecystectomy S/P foot surgery S/P routine circumcision Family History Mother Cancer Breast CA Father CAD (coronary artery disease) Myocardial infarct [place] age 58 Diabetes Stroke Hypertension Social History Smoking and tobacco/nicotine status: former use of tobacco/nicotine Physical Exam Narrative: EXAM NARRATIVE: The patient appeared well nourished and normally developed. Vital signs as documented. Head exam is unremarkable. No scleral icterus or corneal arcus noted. Neck is without jugular venous distension, thyromegaly, or carotid bruits. Carotid upstrokes are brisk bilaterally. Lungs are clear to auscultation and percussion. Cardiac exam reveals the PMI to be normally sized and situated. Rhythm is regular. First and second heart sounds normal. No murmurs, rubs or gallops. Abdominal exam reveals normal bowel sounds, no masses, no organomegaly and no aortic enlargement. Extremities are edematous at 1+, right lower extremity with significant lymphedema, there is a superficial blister that is erupted to the lateral aspect and a healing sore to the anterior aspect of the lateral right malleolus. He does have chronic venous congestion stasis pigmentation of the right lower extremity. And both femoral and pedal pulses are normal. Course Vital Signs: Vital signs: Vital Signs Temperature 98.7 F 05/18/23 13:19 Pulse Rate 117 H 05/18/23 13:19 Respiratory Rate 15 05/18/23 13:19 Blood Pressure 127/81 05/18/23 13:19 Pulse Oximetry 95 05/18/23 13:19 Oxygen Delivery Me thod Room Air 05/18/23 13:19 MDM - General Adult Medical Decision Making Physical exam completed and documented, I did discuss the importance of follow-up with his primary care provider as well as provided him wound care here in the emergency department and provided him contact information for the wound care clinic at this facility. Differential Diagnosis Chronic nonhealing superficial wound Medical Records I reviewed the patient's medical records. No radiology studies performed this visit Discharge Plan Discharge Patient Disposition: Home Clinical Impression: Non-healing wound Condition: Stable Prescriptions: No Action (DME) [employer] Care Lotion See Rx Instructions .Route .MEDSUPPLY Qty: 1 0RF Rx Instructions: As directed dorzolamide-timolol 22.3-6.8 mg/mL drops 1 drop ophthalmic (eye) BID (DME) compr.stocking,knee,long,x-lrg Misc See Rx Instructions .ROUTE .MEDSUPPLY Qty: 2 0RF Rx Instructions: Zip up stockings ketoconazole 1 % Shampoo 1 applic TOPICAL EVERY OTHER DAY hydrocodone-acetaminophen 5-325 mg tablet 1 tab PO Q6H PRN (Reason: pain) Qty: 14 0RF Lasix 40 mg Tablet 40 mg PO TID vitamin E 670 mg (1,000 unit) Capsule 670 mg PO DAILY Vitamin C 1,000 mg Tablet 1,000 mg PO DAILY aspirin 325 mg Tablet 325 mg PO DAILY naproxen 250 mg Tablet 250 mg PO Q12H PRN (Reason: Pain) methocarbamol 750 mg Tablet 750 mg PO Q8H PRN (Reason: Muscle Spasm) triamcinolone acetonide 0.025 % Cream 1 applic TOPICAL Q12H PRN (Reason: unknown) metoprolol tartrate 50 mg Tablet 50 mg PO BID magnesium oxide 500 mg Tablet 500 mg PO DAILY bisacodyl 5 mg Tablet 5 mg PO DAILY PRN (Reason: Constipation) Calcium 600 + D(3) 600 mg-10 mcg (400 unit) Tablet 1 tab PO DAILY Vitamin D3 125 mcg (5,000 unit) Tablet 125 mcg PO DAILY potassium chloride 20 mEq Tablet Extended Release 20 meq PO DAILY prednisolone acet-gatifloxacin 1-0.5 % Drops,Suspension 1 drp OPHTHALMIC (EYE) DAILY ibuprofen 800 mg Tablet 800 mg PO BID Discharge Orders: Discharge ED (Routine); Ordered 05/18/23 Ordered By: Christiano Cervantes Referrals: Sinai aGnn FNP-C [Nurse Practitioner] - (call to be evaluated for your wound care concerns. ) Esvin Handley, [Primary Care Provider] - Discharge Diet: Advance as tolerated Discharge Activity: Resume usual activity Patient Instructions: Opioid Safety, Pain Management Activity Restrictions/Additional Instructions: Activity Restrictions/Additional Instructions: Thank you for choosing [facility] for your healthcare needs today. Please realize that you were seen in the Emergency Department and that we are providing you with an emergency medical screening exam and this may not be complete and all inclusive of all the testing and or medical work-up that you may need to determine your ailment or severity of your illness. It is very important that you follow-up as instructed with your Primary care provider or Specialist for additional evaluation and to discuss your medical treatment plan. You may return to the Emergency Department should you have concerns or if your condition changes or worsens in any way. Coding Level of Care Code ED Foreclosure Clerk for Janelle Ojeda
--- NOTE | 2023-05-18 16:33 | PC.NURSE ---
nurse assumed care at 1600
[2023-05-18 17:08] VITALS: BP 131/86; PULSE 96; O2SAT 94
== END 2023-05-18 17:10 | disposition home or self-care (01) ==
PROVIDERS: Emergency Provider Internal Medicine; PCP Emergency Medicine Emergency Medical Services
DX: S81.801A Unspecified open wound, right lower leg, initial encounter (principal); Z79.82 Long term (current) use of aspirin; Z87.891 Personal history of nicotine dependence; I50.9 Heart failure, unspecified; I73.9 Peripheral vascular disease, unspecified; X58.XXXA Exposure to other specified factors, initial encounter
CPT/HCPCS: 99283

== ENCOUNTER → 2023-05-25 14:48 | Outpatient (BNVA) | payer OTHER, MEDICARE, MEDICAID, SELFPAY | PROVIDERS: PCP Emergency Medicine Emergency Medical Services; Visit Provider Student in an Organized Health Care Education/Training Program | DX: S72.141D Displaced intertrochanteric fracture of right femur, subsequent encounter for closed fracture with routine healing; X58.XXXD Exposure to other specified factors, subsequent encounter | CPT/HCPCS: 73502; 99213 ==

== ENCOUNTER → 2023-06-04 08:16 | Outpatient (BNVA) | payer OTHER, SELFPAY | PROVIDERS: PCP Emergency Medicine Emergency Medical Services; Visit Provider Thoracic Surgery (Cardiothoracic Vascular Surgery) | DX: I89.0 Lymphedema, not elsewhere classified (principal); I96 Gangrene, not elsewhere classified; L97.812 Non-pressure chronic ulcer of other part of right lower leg with fat layer exposed; L97.312 Non-pressure chronic ulcer of right ankle with fat layer exposed | CPT/HCPCS: 97597; 99213; A6021; A6248 ==

== ENCOUNTER → 2023-06-07 13:40 | Outpatient (BNVA) | payer OTHER, SELFPAY | PROVIDERS: PCP Emergency Medicine Emergency Medical Services; Visit Provider Thoracic Surgery (Cardiothoracic Vascular Surgery) | DX: I89.0 Lymphedema, not elsewhere classified (principal); I96 Gangrene, not elsewhere classified; L97.812 Non-pressure chronic ulcer of other part of right lower leg with fat layer exposed | CPT/HCPCS: 97597 ==

== ENCOUNTER → 2023-06-18 13:44 | Outpatient (BNVA) | payer OTHER, SELFPAY | PROVIDERS: PCP Emergency Medicine Emergency Medical Services; Visit Provider Thoracic Surgery (Cardiothoracic Vascular Surgery) | DX: I89.0 Lymphedema, not elsewhere classified (principal); L97.812 Non-pressure chronic ulcer of other part of right lower leg with fat layer exposed; L97.312 Non-pressure chronic ulcer of right ankle with fat layer exposed | CPT/HCPCS: 97597; A6021; A6212 ==

== ENCOUNTER → 2023-06-25 10:08 | Outpatient (BNVA) | payer OTHER, SELFPAY | PROVIDERS: PCP Emergency Medicine Emergency Medical Services; Visit Provider Nurse Practitioner Family | DX: I96 Gangrene, not elsewhere classified; I89.0 Lymphedema, not elsewhere classified; L97.312 Non-pressure chronic ulcer of right ankle with fat layer exposed; L97.812 Non-pressure chronic ulcer of other part of right lower leg with fat layer exposed; Z09 Encounter for follow-up examination after completed treatment for conditions other than malignant neoplasm | CPT/HCPCS: 97597; 99212 ==

== ENCOUNTER → 2023-07-02 09:31 | Outpatient (BNVA) | payer OTHER, SELFPAY | PROVIDERS: Referring Provider Emergency Medicine Emergency Medical Services; Visit Provider Surgery | DX: Z12.11 Encounter for screening for malignant neoplasm of colon (principal) | CPT/HCPCS: 99203; A6021; A6212 ==

== ENCOUNTER 2023-07-06 09:26 | Outpatient (CLI) | payer OTHER, SELFPAY ==
--- NOTE | 2023-07-06 09:30 | USCV_ITS ---
Ac Paz Age: 73 Gender: M : 1950 Exam Date: 07/06/2023 09:35 Ordering Phys: Yves Gann MD (Andy) ([email or web address]) Technologist: CT Exam Location: [facility] – [place] Indication: HISTORY: PROCEDURES: FINDINGS: The deep veins were found to be patent with normal flow pattern No flow was detected in the right superficial femoral vein Echodensities were noted in this small saphenous vein proximally CONCLUSIONS 1. No evidence of DVT on the right side 2. No significant venous reflux on the right side 3. The right small saphenous vein appears to be occluded with possible calcified thrombus in the proximal segment . Dr Yasmani Jorge MD FACC (Electronically Signed) Final Date: 07 July 2023 09:41 S
== END 2023-07-06 09:27 | disposition home or self-care (01) ==
LOC: RAD 09:27
PROVIDERS: Visit Provider Thoracic Surgery (Cardiothoracic Vascular Surgery)
DX: I83.893 Varicose veins of bilateral lower extremities with other complications (principal); S81.801A Unspecified open wound, right lower leg, initial encounter; Y99.9 Unspecified external cause status; I89.0 Lymphedema, not elsewhere classified; L97.312 Non-pressure chronic ulcer of right ankle with fat layer exposed; L97.812 Non-pressure chronic ulcer of other part of right lower leg with fat layer exposed
CPT/HCPCS: 93971; 97597

== ENCOUNTER → 2023-07-09 09:14 | Outpatient (BNVA) | payer MEDICARE, SELFPAY | PROVIDERS: Visit Provider Thoracic Surgery (Cardiothoracic Vascular Surgery) | DX: I89.0 Lymphedema, not elsewhere classified (principal); L97.812 Non-pressure chronic ulcer of other part of right lower leg with fat layer exposed | CPT/HCPCS: 97597; A6021; A6212 ==

== ENCOUNTER 2023-07-13 11:43 | Outpatient (RCR) | payer MEDICARE, SELFPAY | END 2023-07-28 23:59 | disposition home or self-care (01) | LOC: SPT 11:43 | PROVIDERS: PCP Emergency Medicine Emergency Medical Services; Visit Provider Physician Assistant | DX: Z98.890 Other specified postprocedural states (principal) | CPT/HCPCS: 97162 ==

== ENCOUNTER 2023-07-14 13:52 | Outpatient (RCR) | payer OTHER, SELFPAY | END 2023-07-28 23:59 | disposition home or self-care (01) | LOC: SPT 13:52 | PROVIDERS: PCP Emergency Medicine Emergency Medical Services; Visit Provider Emergency Medicine Emergency Medical Services | DX: I89.0 Lymphedema, not elsewhere classified (principal) | CPT/HCPCS: 97140; 97161 ==

== ENCOUNTER → 2023-07-16 09:41 | Outpatient (BNVA) | payer MEDICARE, SELFPAY | PROVIDERS: PCP Emergency Medicine Emergency Medical Services; Visit Provider Thoracic Surgery (Cardiothoracic Vascular Surgery) | DX: I96 Gangrene, not elsewhere classified (principal); I89.0 Lymphedema, not elsewhere classified | CPT/HCPCS: 97597; A6021; A6212 ==

== ENCOUNTER → 2023-07-23 10:00 | Outpatient (BNVA) | payer OTHER, SELFPAY | PROVIDERS: Visit Provider Thoracic Surgery (Cardiothoracic Vascular Surgery) | DX: Z09 Encounter for follow-up examination after completed treatment for conditions other than malignant neoplasm (principal); Z87.2 Personal history of diseases of the skin and subcutaneous tissue | CPT/HCPCS: 99213; A6210 ==

== ENCOUNTER 2023-07-28 09:36 | Outpatient (RCR) | payer OTHER, SELFPAY | END 2023-07-28 23:59 | disposition home or self-care (01) | LOC: SPT 09:36 | PROVIDERS: Visit Provider Emergency Medicine Emergency Medical Services | DX: M25.551 Pain in right hip (principal); I96 Gangrene, not elsewhere classified; I89.0 Lymphedema, not elsewhere classified; L97.812 Non-pressure chronic ulcer of other part of right lower leg with fat layer exposed | CPT/HCPCS: 97110; 97140; 97162; 97597; A6210 ==

== ENCOUNTER 2023-07-29 06:00 | Outpatient (RCR) | payer OTHER, SELFPAY | END 2023-08-26 23:59 | disposition home or self-care (01) | LOC: SPT 06:00 | PROVIDERS: PCP Emergency Medicine Emergency Medical Services; Visit Provider Emergency Medicine Emergency Medical Services | DX: M25.551 Pain in right hip (principal) | CPT/HCPCS: 97110; 97140; 97530 ==

== ENCOUNTER → 2023-08-05 14:02 | Outpatient (BNVA) | payer OTHER, SELFPAY | PROVIDERS: PCP Emergency Medicine Emergency Medical Services; Visit Provider Dermatology | DX: L21.8 Other seborrheic dermatitis (principal); L73.8 Other specified follicular disorders; L82.1 Other seborrheic keratosis; L91.8 Other hypertrophic disorders of the skin; T14.8XXA Other injury of unspecified body region, initial encounter | CPT/HCPCS: 99204 ==

== ENCOUNTER → 2023-08-24 10:34 | Outpatient (BNVA) | payer OTHER, SELFPAY | PROVIDERS: PCP Emergency Medicine Emergency Medical Services; Visit Provider Student in an Organized Health Care Education/Training Program | DX: S72.141D Displaced intertrochanteric fracture of right femur, subsequent encounter for closed fracture with routine healing (principal); X58.XXXD Exposure to other specified factors, subsequent encounter | CPT/HCPCS: 73502; 99213 ==

== ENCOUNTER 2023-08-27 06:00 | Outpatient (RCR) | payer OTHER, SELFPAY | END 2023-09-03 23:59 | disposition home or self-care (01) | LOC: SPT 06:00 | PROVIDERS: PCP Emergency Medicine Emergency Medical Services; Visit Provider Emergency Medicine Emergency Medical Services | DX: M25.551 Pain in right hip (principal) | CPT/HCPCS: 97110 ==

== ENCOUNTER 2023-09-16 08:11 | Day surgery (SDC) | payer OTHER, SELFPAY ==
[2023-09-16 08:51] VITALS: BP 131/80; PULSE 94; RESP 16; TEMP 36.1; O2SAT 94; BMI 29.1
[2023-09-16] MEDS: sodium chloride 0.9% 1,000 ML 30 ML IV ×2 (08:58→10:42)
--- NOTE | 2023-09-16 09:13 | W.PM.OPSFHP ---
Same Day Surgery H&P Indication for Procedure/HPI DATE OF PROCEDURE: September 16, 2023 CHIEF COMPLAINT/INDICATIONFOR SURGICAL PROCEDURE: need for screening colonoscopy PREOP DIAGNOSIS: need for screening colonoscopy PLANNED PROCEDURE: Operation Date: 09/16/23 09:45 Proposed Procedures p [id number] Colon G0121 Z12.11(Not Applicable) - Roosevelt Rucker MD Medications/Allergies* Home Medications Medication Instructions Recorded Confirmed Type dorzolamide 22.3 mg-timolol 6.8 1 drop ophthalmic (eye) BID 11/01/19 09/14/23 History mg/mL eye drops cholecalciferol (vitamin D3) 125 125 mcg PO DAILY 03/02/23 09/14/23 History mcg (5,000 unit) tablet (Vitamin D3) furosemide 40 mg tablet (Lasix) 40 mg PO TID 03/02/23 09/14/23 History magnesium oxide 500 mg PO DAILY 03/02/23 09/14/23 History naproxen 250 mg tablet 250 mg PO Q12H PRN Pain 03/02/23 09/14/23 History potassium chloride 20 mEq 20 meq PO DAILY 03/02/23 09/14/23 History tablet,extended release vitamin E 670 mg (1,000 unit) 670 mg PO DAILY 03/02/23 09/14/23 History capsule calcium 300 1 sc PO DAILY 07/02/23 09/14/23 History mg-chondroitin,collagen,glycosam 1,700 mg/scoop oral powdr (Beyond Bone Broth) Allergies/Adverse Reactions Allergy/AdvReac Type Severity Reaction Status Date / Time No Known Allergies Allergy Verified 08/24/23 10:39 Current Medications: Generic Name Dose Route Start Last Admin Trade Name Freq PRN Reason Stop Dose Admin Sodium Chloride 1,000 mls @ 30 mls/hr 09/16/23 08:45 09/16/23 08:58 Sodium Chloride 0.9% IV 30 mls/hr .Q24H FABRICIO Administration Pertinent History/Comorbid Conditions* Medical History (Updated 05/26/23 @ 00:00 by ISAC Felix) Borderline personality disorder Peripheral Vascular Disease CHF (congestive heart failure) Varicose veins of bilateral lower extremities with other complications Surgical History (Updated 04/10/20 @ 12:37 by Raj Baker DPM) History of back surgery S/P foot surgery S/P carpal tunnel release S/P routine circumcision S/P cholecystectomy Family History (Updated 11/01/19 @ 09:23 by Chasity Winslow RN) Diabetes Father CAD (coronary artery disease) Father Myocardial infarct Father [place] age 58 Cancer Mother Breast CA Hypertension Father Stroke Father Social History Smoking and tobacco/nicotine status: former use of tobacco/nicotine Pertinent Exam Findings alert, oriented x 3 and clear to auscultation bilaterally Recommendations Surgery/Procedure today Coding Level of Care Code Acute Code for Chg Fwmanisha
--- NOTE | 2023-09-16 09:54 | ANES.PREANE2 ---
Pre-Anesthetic Assessment Height/Weight: Height 1.83 m Weight 97.522 kg Temp Pulse Resp BP Pulse Ox O2 Del Method 97 F L 94 16 131/80 94 Room Air 09/16/23 08:51 09/16/23 08:51 09/16/23 08:51 09/16/23 08:51 09/16/23 08:51 09/16/23 08:51 Preop Diagnosis: need for screening colonoscopy Operation Date: 09/16/23 09:45 Proposed Procedures p [id number] Colon G0121 Z12.11(Not Applicable) - Roosevelt Rucker MD Was Beta Kristen taken within 24 hours: N/A Was Clonidine taken within 24 hours: N/A Last intake: Intake Last Liquid Date 09/16/23 Last Liquid Time 06:45 Last Solid Date 09/15/23 Last Solid Time 08:00 Social No alcohol and No tobacco Exam alert, oriented x 3, clear to auscultation bilaterally and regular rate & rhythm Airway Submandibular: within normal limits Cervical ROM: within normal limits Mallampati: Class II Dentition: false Comments: Comments: upper denture. few scattered teeth on bottom History/ROS No significant history except as noted and No significant complaints Pulmonary None reported CV/HEM Congestive Heart Failure and Peripheral Vascular Disease None reported Hepatic None reported GI None reported Metabolic None reported Musc/skel Osteoarthritis/DJD Neuropsych Psych disorder Medications/Allergies Home Medications Medication Instructions Recorded Confirmed Last Taken Type dorzolamide 22.3 mg-timolol 6.8 1 drop ophthalmic (eye) BID 11/01/19 09/14/23 09/14/23 History mg/mL eye drops compr.stocking,knee,long,x-lrg #2 ea 04/16/20 08/24/23 Unknown Rx Amerigel Care Lotion #1 ea 09/18/20 08/24/23 Unknown Rx cholecalciferol (vitamin D3) 125 125 mcg PO DAILY 03/02/23 09/14/23 Unknown History mcg (5,000 unit) tablet (Vitamin D3) furosemide 40 mg tablet (Lasix) 40 mg PO TID 03/02/23 09/14/23 09/14/23 History magnesium oxide 500 mg PO DAILY 03/02/23 09/14/23 09/14/23 History naproxen 250 mg tablet 250 mg PO Q12H PRN Pain 03/02/23 09/14/23 Unknown History potassium chloride 20 mEq 20 meq PO DAILY 03/02/23 09/14/23 09/15/23 History tablet,extended release vitamin E 670 mg (1,000 unit) 670 mg PO DAILY 03/02/23 09/14/23 Unknown History capsule calcium 300 1 sc PO DAILY 07/02/23 09/14/23 09/14/23 History mg-chondroitin,collagen,glycosam 1,700 mg/scoop oral powdr (Beyond Bone Broth) Allergies Allergy/AdvReac Type Severity Reaction Status Date / Time No Known Allergies Allergy Verified 08/24/23 10:39 Current Medications Generic Name Dose Route Start Last Admin Trade Name Freq PRN Reason Stop Dose Admin Sodium Chloride 1,000 mls @ 30 mls/hr 09/16/23 08:45 09/16/23 08:58 Sodium Chloride 0.9% IV 30 mls/hr .Q24H FABRICIO Administration PFSH Anesthesia Medical History Borderline personality disorder Peripheral Vascular Disease CHF (congestive heart failure) Varicose veins of bilateral lower extremities with other complications Surgical History History of back surgery S/P foot surgery S/P carpal tunnel release S/P routine circumcision S/P cholecystectomy Family History Mother Cancer Breast CA Father CAD (coronary artery disease) Myocardial infarct [place] age 58 Diabetes Stroke Hypertension Social History Smoking and tobacco/nicotine status: former use of tobacco/nicotine Data Anesthesia Cardiac Studies: Echocardiogram 02/11/21
[2023-09-16 11:07] VITALS: BP 132/73; PULSE 84; RESP 20; TEMP 36.3; O2SAT 99
[2023-09-16 11:25] VITALS: BP 163/90; O2SAT 97
[2023-09-16 11:34] VITALS: BP 126/82
--- NOTE | 2023-09-16 12:00 | ANE.PACU2 ---
Inpatient post-anesthesia follow up: Airway intact: Yes Vital signs: Temperature 97.4 F Pulse Rate 84 Respiratory Rate 20 Blood Pressure 126/82 Pulse Oximetry 97 Oxygen Delivery Me thod Room Air Oxygen Flow Rate 3 Fraction of Inspir ed Oxygen Hydration adequate: Yes Nausea and vomiting: No Pain level: 1 Mental status: Baseline
== END 2023-09-16 12:01 | disposition home or self-care (01) ==
PROVIDERS: PCP Emergency Medicine Emergency Medical Services; Visit Provider Surgery
PROC: 0DJD8ZZ Inspection of Lower Intestinal Tract, Via Natural or Artificial Opening Endoscopic (ICD-10-PCS; CPT 45378; principal; 2023-09-16 09:45)
DX: Z12.11 Encounter for screening for malignant neoplasm of colon (principal); D12.5 Benign neoplasm of sigmoid colon; I50.9 Heart failure, unspecified; Z87.891 Personal history of nicotine dependence; K57.30 Diverticulosis of large intestine without perforation or abscess without bleeding
CPT/HCPCS: 45385; J2704; J7030

== ENCOUNTER → 2023-12-23 09:37 | Outpatient (BNVA) | payer OTHER, SELFPAY | PROVIDERS: PCP Emergency Medicine Emergency Medical Services; Visit Provider Podiatrist Foot & Ankle Surgery | DX: B35.3 Tinea pedis (principal); M21.70 Unequal limb length (acquired), unspecified site; L60.3 Nail dystrophy; I73.9 Peripheral vascular disease, unspecified | CPT/HCPCS: 99203 ==

== ENCOUNTER 2023-12-29 14:07 | Outpatient (CLI) | payer OTHER, SELFPAY ==
--- NOTE | 2023-12-29 14:11 | CTR_ITS ---
PROCEDURE INFORMATION: Exam: CT Right Lower Extremity Without Contrast, Hip Exam date and time: 12/29/2023 2:16 PM Age: 73 years old Clinical indication: Pain; Prior surgery; Surgery date: 6+ months; Surgery type: Right hip; Additional info: R hip pain/pt has pin in hip TECHNIQUE: Imaging protocol: CT of the right lower extremity without contrast was performed. Exam focused on the hip. Radiation optimization: All CT scans at this facility use at least one of these dose optimization techniques: automated exposure control; mA and/or kV adjustment per patient size (includes targeted exams where dose is matched to clinical indication); or iterative reconstruction. COMPARISON: CR XR hip RT 2-3V wo/w pel* [id number] 08/24/2023 10:39 AM RADIATION DOSE METRICS: Total DLP (mGy-cm): 678.39 FINDINGS: Bones/joints: Chronic intertrochanteric fracture of the proximal right femur status post intramedullary jimmie fixation with associated posttraumatic deformity and heterotopic ossifications in the gluteus medius tendon. There is evidence of chronic abutment of the greater trochanter and posterosuperior acetabular rim with sclerosis and hyperostosis of the acetabulum in this region (image 82 of series 15). No evidence of acute fracture or subluxation. There is faint sclerosis of the superior femoral head suspicious for osteonecrosis. (image 94 of series 15). No evidence of hardware loosening. Soft tissues: Severe muscular fatty atrophy of the gluteus minimus. Heterotopic ossification and tendinosis of the gluteus medius tendon. No fluid collection or hematoma. CT/CT hip RT wo con* [id number] IMPRESSION: 1. Chronic intertrochanteric fracture of the proximal right femur with posttraumatic deformity. There is evidence of chronic abutment of the posterosuperior acetabulum and greater trochanter, possibly resulting in symptoms of impingement. 2. Sclerosis of the superior femoral head suspicious for osteonecrosis.
== END 2023-12-29 14:08 | disposition home or self-care (01) ==
PROVIDERS: PCP Emergency Medicine Emergency Medical Services; Visit Provider Nurse Practitioner Family
DX: M85.88 Other specified disorders of bone density and structure, other site (principal); R93.89 Abnormal findings on diagnostic imaging of other specified body structures; M89.8X5 Other specified disorders of bone, thigh
CPT/HCPCS: 73700

== ENCOUNTER → 2024-01-14 11:56 | Outpatient (BNVA) | payer OTHER, SELFPAY | PROVIDERS: PCP Emergency Medicine Emergency Medical Services; Visit Provider Student in an Organized Health Care Education/Training Program | DX: S72.141D Displaced intertrochanteric fracture of right femur, subsequent encounter for closed fracture with routine healing (principal); M70.61 Trochanteric bursitis, right hip; X58.XXXD Exposure to other specified factors, subsequent encounter | CPT/HCPCS: 20610; 73502; 99213; J3301; J3490 ==

== ENCOUNTER → 2024-04-11 12:52 | Outpatient (BNVA) | payer OTHER, SELFPAY | PROVIDERS: PCP Emergency Medicine Emergency Medical Services; Visit Provider Podiatrist Foot & Ankle Surgery | DX: L60.3 Nail dystrophy; E11.8 Type 2 diabetes mellitus with unspecified complications; B35.3 Tinea pedis; M21.70 Unequal limb length (acquired), unspecified site; I73.9 Peripheral vascular disease, unspecified | CPT/HCPCS: 11721; 99212 ==

== ENCOUNTER → 2024-04-18 13:10 | Outpatient (BNVA) | payer OTHER, SELFPAY | PROVIDERS: PCP Emergency Medicine Emergency Medical Services; Visit Provider Thoracic Surgery (Cardiothoracic Vascular Surgery) | DX: I96 Gangrene, not elsewhere classified (principal); I87.2 Venous insufficiency (chronic) (peripheral); L97.311 Non-pressure chronic ulcer of right ankle limited to breakdown of skin | CPT/HCPCS: 99213; A6021 ==

== ENCOUNTER → 2024-04-25 10:50 | Outpatient (BNVA) | payer OTHER, SELFPAY | PROVIDERS: PCP Emergency Medicine Emergency Medical Services; Visit Provider Thoracic Surgery (Cardiothoracic Vascular Surgery) | DX: Z09 Encounter for follow-up examination after completed treatment for conditions other than malignant neoplasm (principal); Z87.2 Personal history of diseases of the skin and subcutaneous tissue | CPT/HCPCS: 99212 ==

== ENCOUNTER 2024-07-02 12:23 | Emergency (ER) | payer OTHER, MEDICARE, SELFPAY ==
[2024-07-02 12:25] VITALS: BP 176/112; PULSE 118; TEMP 36.4; O2SAT 89; BMI 29.4
--- NOTE | 2024-07-02 12:30 | XRR_ITS ---
PROCEDURE INFORMATION: Exam: XR Right Hip Exam date and time: 07/02/2024 12:33 PM Age: 74 years old Clinical indication: Hip pain and pelvic pain; Right hip; Prior surgery; Surgery date: 6+ months; Surgery type: RT tfn; Additional info: RT hip pain post fall x 1 week ago; RT tfn 2022 TECHNIQUE: Imaging protocol: Radiologic exam of the right hip. Views: 1 view hip with pelvis when performed. COMPARISON: CR XR hip RT 2-3V wo/w pel* [id number] 01/14/2024 11:57 AM FINDINGS: Bones/joints: Metallic hardware transfix healed fractures of the proximal right femur. No acute fracture noted. Soft tissues: Unremarkable. XR/XR hip RT 2-3V wo/w pel* [id number] IMPRESSION: No acute findings.
--- NOTE | 2024-07-02 12:30 | ECG_ITS ---
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 Measurements Intervals [place] Rate: 106 P: 45 ND: 144 QRS: 65 QRSD: 112 T: 16 QT: 345 QTc: 460 Interpretive Statements SINUS TACHYCARDIA LOW QRS VOLTAGE IN PRECORDIAL LEADS [QRS DEFLECTION < 1.0 mV IN CHEST LEADS] MODERATE INTRAVENTRICULAR CONDUCTION DELAY [110+ ms QRS DURATION] ABNORMAL RHYTHM ECG Compared to ECG 12/14/2022 14:43:07 Low QRS voltage now present Intraventricular conduction delay now present Sinus rhythm no longer present Electronically Signed On 07-03-2024 17:23:28 STOCK CONTROL CLERK by Yasmani Jorge M.D. [id number] f
--- NOTE | 2024-07-02 12:53 | CTR_ITS ---
PROCEDURE INFORMATION: Exam: CT Pelvis Without Contrast, Skeleton Exam date and time: 07/02/2024 1:06 PM Age: 74 years old Clinical indication: Hip pain; Right hip; Prior surgery; Surgery date: 6+ months; Additional info: Traumatic pelvic pain/ hip TECHNIQUE: Imaging protocol: Computed tomography of the pelvis without contrast. Exam focused on the skeleton. Radiation optimization: All CT scans at this facility use at least one of these dose optimization techniques: automated exposure control; mA and/or kV adjustment per patient size (includes targeted exams where dose is matched to clinical indication); or iterative reconstruction. COMPARISON: CT abdomen pelvis w con* [id number] 04/08/2023 12:33 PM RADIATION DOSE METRICS: Total DLP (mGy-cm): 711.58 FINDINGS: Bones/joints: Metallic hardware transfix healed fractures of the proximal right femur. The bony structures demonstrate diffuse osteopenia. No acute fracture noted. Soft tissues: Right inguinal hernia contains small bowel. CT/CT pelvis wo con [id number] IMPRESSION: 1. No acute findings. 2. Old healed fractures of the right femur 3. Right inguinal hernia
--- NOTE | 2024-07-02 12:53 | ED_ITS ---
HPI - Extremity Problem General: Chief complaint: Extremity Injury, Lower Stated complaint: right hip pain s/p fall Time Seen by Provider: 07/02/24 12:25 History of Present Illness: 74-year-old man with a history of conges tive heart failure and venous stasis who presents to the emergency room with right hip pain. He fell about 10 days ago. He has a large bruise over his right lateral hip area. He has had hardware placed in the past. He says he came to the emergency room today because his daughter insisted that he come be evaluated. He states he can still stand and can walk with a cane. Just continues to have pain. No other injuries. No altered mental status. No head injury. No chest pain. No abdominal pain. No nausea or vomiting. Related Data Home Medications Medication Instructions Recorded Confirmed dorzolamide 22.3 mg-timolol 6.8 1 drop ophthalmic (eye) BID 11/01/19 07/02/24 mg/mL eye drops cholecalciferol (vitamin D3) 125 125 mcg PO DAILY 03/02/23 07/02/24 mcg (5,000 unit) tablet (Vitamin D3) furosemide 40 mg tablet (Lasix) 40 mg PO TID PRN Edema 03/02/23 07/02/24 naproxen 250 mg tablet 250 mg PO Q12H PRN Pain 03/02/23 07/02/24 potassium chloride 20 mEq 20 meq PO DAILY PRN Edema 03/02/23 07/02/24 tablet,extended release vitamin E 670 mg (1,000 unit) 670 mg PO DAILY 03/02/23 07/02/24 capsule calcium 300 1 sc PO DAILY 07/02/23 07/02/24 mg-chondroitin,collagen,glycosam 1,700 mg/scoop oral powdr (Beyond Bone Broth) hydrocortisone 2.5 % topical cream 1 applic topical BID PRN Skin 07/02/24 07/02/24 Irritation indomethacin 75 mg 75 mg PO DAILY 07/02/24 07/02/24 capsule,extended release testosterone 12.5 mg/1.25 gram per 4 pump transdermal DAILY 07/02/24 07/02/24 pump actuation (1%) transdermal gel Previous Rx's Medication Instructions Recorded compr.stocking,knee,long,x-lrg #2 ea 04/16/20 Amerigel Care Lotion #1 ea 09/18/20 clotrimazole-betamethasone 1 1 applic topical BID 4 weeks #45 12/23/23 %-0.05 % topical cream grams orthotic shoes L3221 #1 ea 12/23/23 Bilateral Forearm Platform Crutch #1 ea 01/14/24 Walkers crutches #1 ea 01/28/24 Allergies Allergy/AdvReac Type Severity Reaction Status Date / Time No Known Allergies Allergy Verified 04/11/24 12:56 Review of Systems Narrative: Constitutional symptoms: Negative except as documented in HPI. Skin symptoms: Negative except as documented in HPI. Eye symptoms: Negative except as documented in HPI. ENMT symptoms: Negative except as documented in HPI. Respiratory symptoms: Negative except as documented in HPI. Cardiovascular symptoms: Negative except as documented in HPI. Gastrointestinal symptoms: Negative except as documented in HPI. Genitourinary symptoms: Negative except as documented in HPI. Musculoskeletal symptoms: Negative except as documented in HPI. Neurologic symptoms: Negative except as documented in HPI. Psychiatric symptoms: Negative except as documented in HPI. Endocrine symptoms: Negative except as documented in HPI. PFSH ED PFSH: Medical History Borderline personality disorder Peripheral Vascular Disease CHF (congestive heart failure) Varicose veins of bilateral lower extremities with other complications Surgical History History of back surgery S/P foot surgery S/P carpal tunnel release S/P routine circumcision S/P cholecystectomy Family History Mother Cancer Breast CA Father CAD (coronary artery disease) Myocardial infarct [place] age 58 Diabetes Stroke Hypertension Social History Smoking and tobacco/nicotine status: current some day tobacco/nicotine user Physical Exam Narrative: EXAM NARRATIVE: General: Alert, no acute distress. Skin: warm and dry Head: Normocephalic Neck: Trachea midline Eye: Extraocular movements are intact. Ears, nose, mouth and throat: Oral mucosa moist Respiratory: Respirations are non-labored Musculoskeletal: Normal ROM. Large bruise over the right lateral hip area that has spread down his leg with gravity. There is a central area that is a hard bruise. No shortening or rotation of the leg. Neurological: Alert and oriented, No focal neurological deficit observed. Psychiatric: Cooperative, appropriate mood & affect. Course Vital Signs: Vital signs: Vital Signs Temperature 97.6 F 07/02/24 12:25 Pulse Rate 118 H 07/02/24 12:25 Blood Pressure 176/112 07/02/24 12:25 Pulse Oximetry 89 L 07/02/24 12:25 Oxygen Delivery Me thod Room Air 07/02/24 12:25 MDM - Extremity (Nontraumatic) Medical Decision Making X-ray of the right hip and pelvis: I see no acute fractures. There is hardware in place. I do not see any changes from a previous hip x-ray. This was reviewed and interpreted by myself the emergency room physician. I also reviewed the radiology report. CT of the right hip: Hardware in place. No acute fractures. Patient does have a hernia. This was reviewed and interpreted by myself the emergency room physician. I also reviewed the radiology report. Patient was concerned about a blood clot. Discussed with him that what is on the side of his hip there is a bruise and not a clot. Assessment and plan: Hip contusion - Discharged home - Discussed plan with patient. Answered any questions. - Evaluation and treatment of this problem were appropriate in the emergency setting. Lab Data Radiology Impressions Hip/Pelvis X-Ray 07/02/24 12:30 IMPRESSION: No acute findings. Pelvis CT 07/02/24 12:53 IMPRESSION: 1. No acute findings. 2. Old healed fractures of the right femur 3. Right inguinal hernia All radiology interpretation(s) finalized by discharge Discharge Plan Discharge Patient Disposition: Home Clinical Impression: Contusion of hip Condition: Stable Prescriptions: No Action (DME) Amerigel Care Lotion See Rx Instructions .Route .MEDSUPPLY Qty: 1 0RF Rx Instructions: As directed dorzolamide-timolol 22.3-6.8 mg/mL drops 1 drop ophthalmic (eye) BID Beyond Bone Broth 300 mg calcium- 1,700 mg/scoop powder 1 sc PO DAILY clotrimazole-betamethasone 1-0.05 % cream 1 applic topical BID 28 Days Qty: 45 0RF (DME) orthotic shoes L3221 See Rx Instructions .Route .MEDSUPPLY Qty: 1 0RF Rx Instructions: As directed to the shoe guys (DME) crutches See Rx Instructions .Route .MEDSUPPLY Qty: 1 0RF Rx Instructions: As directed (DME) Bilateral Forearm Platform Crutch Walkers See Rx Instructions .Route .MEDSUPPLY Qty: 1 0RF Rx Instructions: As directed-Length of need 6 months (DME) compr.stocking,knee,long,x-lrg Misc See Rx Instructions .ROUTE .MEDSUPPLY Qty: 2 0RF Rx Instructions: Zip up stockings hydrocortisone 2.5 % Cream 1 applic TOPICAL BID PRN (Reason: Skin Irritation) indomethacin 75 mg Capsule, Extended Release 75 mg PO DAILY testosterone [AndroGel] 12.5 mg/ 1.25 gram (1 %) Gel In Metered-Dose Pump 4 pump TRANSDERMAL DAILY furosemide [Lasix] 40 mg Tablet 40 mg PO TID PRN (Reason: Edema) vitamin E 670 mg (1,000 unit) Capsule 670 mg PO DAILY naproxen 250 mg Tablet 250 mg PO Q12H PRN (Reason: Pain) cholecalciferol (vitamin D3) [Vitamin D3] 125 mcg (5,000 unit) Tablet 125 mcg PO DAILY potassium chloride 20 mEq Tablet Extended Release 20 meq PO DAILY PRN (Reason: Edema) Discharge Orders: Discharge ED (Routine); Ordered 07/02/24 Ordered By: Sienna Reyes Referrals: Esvin Handley DO [Primary Care Provider] - Patient Instructions: Opioid Safety, Pain Management Activity Restrictions/Additional Instructions: Thank you for choosing [facility] for your healthcare needs today. Please realize this is an emergency room and that we are providing you with a medical screening exam and this may not be complete and all inclusive of all the testing and or work up that you may need to determine your ailment or severity of your illness. You have been screened and evaluated and felt safe for discharge. Health conditions do change or evolve sometimes and as such it is important that you follow up with your Primary Doctor to be re checked, 3-5 days is a general good time frame for follow up. You are always welcome to return to the ED for re assessment if your symptoms are worsening or you have new concerns Coding Level of Care Code ED [employer] Specials for Janelle Ojeda
--- NOTE | 2024-07-02 12:56 | PC.PHAR ---
[facility] is [facility], will consult with pt.
[2024-07-02 14:32] VITALS: BP 155/112; PULSE 104; O2SAT 95
[2024-07-02 14:50] LABS: Basophils % 0.4 %; Eosinophils # 0.1 10^3/uL (0.0-0.8); Hematocrit 49.4 % (37-53); Mean Corpuscular HGB Conc 31.2 g/dL (30-55); Mean Corpuscular Hemoglobin 29.8 pg (27-33); Mean Corpuscular Volume 95.6 fl (82-101); Mean Platelet Volume 9.6 fL (7.4-10.4); Monocytes # 0.7 10^3/uL (0.2-0.9); Monocytes % 9.4 %; Neutrophils # 5.24 10^3/uL (1.8-7.7); Neutrophils % 73.9 %; Nucleated Red Blood Cells % 0 %; Platelet Count 286 10^3/cmm (157-399); Red Blood Count 5.17 10^6/uL (3.85-5.65); Red Cell Distribution Width 13.6 % (12.1-15.1); White Blood Count 7.09 10^3/uL (3.29-11.43)
[2024-07-02 15:02] LABS: D Dimer 0.92 ug/mLFEU (0-0.59)
[2024-07-02 15:08] LABS: Alanine Aminotransferase 12 U/L (0-41); Albumin Level 4.5 g/dL (3.5-5.2); Alkaline Phosphatase 118 U/L (40-130); Anion Gap 23.1 (5-19); Aspartate Amino Transferase 14 U/L (0-40); Blood Urea Nitrogen 17 mg/dL (8-23); Calcium 9.8 mg/dL (8.5-10.5); Carbon Dioxide 28 mmol/L (22-29); Chloride 93 mmol/L (98-107); Creatinine Clr Calc Pharmacy 96.9719; Globulin 2.9 g/dL (1.3-4.6); Glucose 98 mg/dL (65-115); Osmolality Calculated 292 mOsm/kg (285-295); Potassium 4.1 mmol/L (3.5-5.1); Sodium 140 mmol/L (136-145); Total Bilirubin 0.7 mg/dL (0.15-1.2); Total Protein 7.4 g/dL (6.6-8.7)
--- NOTE | 2024-07-02 15:31 | PC.NURSE ---
PATIENT STATED SEVERAL TIMES THROUGHOUT CARE THAT HE DID NOT WANT TO BE HOOKED UP TO MONITOR. EDUCATED PATIENT ON WHY WE NEEDED VITALS. PATIENT STATED WELL IM HERE, THATS ALL YOU NEED . I ASKED PATIENT TO LET ME PUT ON THE PULSE OX ONE LAST TIME AND HE AGREED AT 1430. PATIENT RIPPED OFF PULSE OX AND BP CUFF AFTER VITALS WERE TAKEN AND CONTINUED TO REFUSE VITALS AND REFUSED VITALS ON DC.
== END 2024-07-02 15:31 | disposition home or self-care (01) ==
PROVIDERS: Emergency Provider Emergency Medicine; PCP Emergency Medicine Emergency Medical Services
DX: S70.01XA Contusion of right hip, initial encounter (principal); Z72.0 Tobacco use; I50.9 Heart failure, unspecified; W19.XXXA Unspecified fall, initial encounter
CPT/HCPCS: 72192; 73502; 80053; 83605; 85025; 85378; 93005; 99285